=== PATIENT | male | born 1940 | race Caucasian/White ===

== ENCOUNTER 2016-09-17 00:26 | Emergency (ER) | payer OTHER, MEDICARE ==
[~2016-09-17 00:26] MED LIST: ASPIRIN CHILDRE81 MG PO; ATORVASTATIN CA80 MG PO; AUGMENTIN 875875 MG PO; BYSTOLIC 5MG5 MG PO; FINASTERIDE5 MG PO; FISH OIL CONC1000 MG PO; FUROSEMIDE20 MG PO; GLIMEPIRIDE4 MG PO; HYDRALAZINE HCL25 MG PO; JANUVIA 50MG50 MG PO; LANTUS SOLOS100 U/ML SC; LISINOPRIL40 MG PO; MINOXIDIL PO; RELAFEN 750MG750 MG PO; SPIRONOLACTONE25 MG PO; ULORIC40 MG PO
[2016-09-17 00:55] VITALS: BP 193/95
== END 2016-09-17 01:18 | disposition admitted as inpatient to this hospital (09) ==
LOC: ERH 00:26
DX: K56.41 Fecal impaction (principal)

== ENCOUNTER 2017-09-05 13:37 | Inpatient (IN) | payer OTHER, MEDICARE ==
[~2017-09-05] VITALS: Ht 167.6 cm; Wt 87.5 kg
[~2017-09-05 13:37] MED LIST changes: +ALDACTONE25 MG PO; +ALLOPURINOL100 M1 PO; +AMARYL4 M1 PO; -ASPIRIN CHILDRE81 MG PO; -ATORVASTATIN CA80 MG PO; +AUGMENTIN 875-1 EACH PO; -BYSTOLIC 5MG5 MG PO; +BYSTOLIC5 M1 PO; +CHILDREN'S ASPI81 M1 PO; +CINNAMON500 M1 PO; +FINASTERIDE5 M1 PO; -FINASTERIDE5 MG PO; +FUROSEMIDE20 M1 PO; -FUROSEMIDE20 MG PO; -GLIMEPIRIDE4 MG PO; +HYDRALAZINE HCL25 M1 PO; -HYDRALAZINE HCL25 MG PO; -JANUVIA 50MG50 MG PO; +JANUVIA50 M1 PO; +LANTUS SOL100 UNIT/1 SC; -LANTUS SOLOS100 U/ML SC; +LEVEMIR100 UNIT/1 SC; +LIPITOR40 M1 PO; +LISINOPRIL40 M1 PO; -LISINOPRIL40 MG PO; +METOPROLOL TART25 M1 PO; -MINOXIDIL PO; +MINOXIDIL2.5 M1 PO; +NABUMETONE750 M1 PO; +PROBIOTIC1 EACH PO; -RELAFEN 750MG750 MG PO; -SPIRONOLACTONE25 MG PO; +TRAMADOL HCL50 M1 PO; +ULORIC40 M1 PO; -ULORIC40 MG PO; +VITAMIN B-121000 MC3 PO; +VITAMIN D31000 UNI2 PO
[2017-09-05 14:22] LABS: ABSOLUTE BASOPHIL COUNT 0 /CUMM (0.0-0.2); ABSOLUTE EOSINOPHIL COUNT 0.1 /CUMM (0.0-0.7); ABSOLUTE GRANULOCYTE CT 5.3 /CUMM (1.4-6.5); ABSOLUTE LYMPH COUNT 1.2 /CUMM (1.2-3.4); ABSOLUTE MONOCYTE COUNT 0.7 /CUMM (0.10-0.60); BASOPHIL % 0.6 % (0.0-2.0); EOSINOPHIL % 1.1 % (0-5); HEMATOCRIT 33.4 % (42-52); MEAN CORPUSCULAR HGB 27.6 PG (27.0-31.0); MEAN CORPUSCULAR HGB CONC 33.7 G/DL (33.0-37.0); PLATELET COUNT 155 /CUMM (130-400); RBC DISTRIBUTION WIDTH 15.3 % (11.5-14.5); RED BLOOD CELL CT 4.08 /CUMM (4.70-6.10); WHITE BLOOD CELL COUNT 7.4 /CUMM (4.8-10.8)
--- NOTE | 2017-09-05 16:11 | ED GENERAL ADULT ---
History of Present Illness General Chief Complaint: General Adult Stated Complaint: SENT BY TORI FOR ELEVATED POTASSIUM LEVELS Source: patient Exam Limitations: no limitations Vital Signs & Intake/Output Vital Signs & Intake/Output Vital Signs Date Time Temp Pulse Resp B/P B/P Pulse O2 O2 Flow FiO2 Mean Ox Delivery Rate 09/05 1602 98.3 69 18 161/73 100 Room Air 09/05 1459 Room Air 09/05 1357 97.8 74 20 104/61 96 Room Air Allergies Coded Allergies: hydrocodone (NAUSEA 04/11/17) Reconcile Medications Allopurinol 100 MG TABLET 1 TAB PO DAILY GOUT (Reported) Amoxicillin/Potassium Clav (Augmentin 875-125 Tablet) 875 MG-125 MG TABLET 1 TAB PO BID PNEUMONIA Aspirin (Children's Aspirin) 81 MG TAB.CHEW 1 TAB PO DAILY HEART HEALTH ( Reported) Atorvastatin Calcium (Lipitor) 40 MG TABLET 1 TAB PO QPM CHOLESTEROL ( Reported) Cholecalciferol (Vitamin D3) 1,000 UNIT TABLET 1 TAB PO Q48 VITAMIN SUPPORT ( Reported) Cinnamon Bark (Cinnamon) 500 MG CAPSULE 1 CAP PO DAILY SUPPLEMENT (Reported) Cyanocobalamin (Vitamin B-12) 1,000 MCG TABLET 1 TAB PO DAILY VITAMIN SUPPORT (Reported) Febuxostat (Uloric) 40 MG TABLET 1 TAB PO DAILY BP (Reported) Finasteride 5 MG TABLET 1 TAB PO QPM PROSTATE (Reported) Furosemide 20 MG TABLET 3 TAB PO DAILY WATER RETENTION (Reported) Glimepiride (Amaryl) 4 MG TABLET 1 TAB PO BID DIABETES (Reported) Hydralazine HCl 25 MG TABLET 1 TAB PO TID BP (Reported) Insulin Glargine,Hum.rec.anlog (Lantus Solostar) 100 UNIT/ML (3 ML) INSULN.PEN 20 UNIT SC QPM DIOABETES Lactobacillus Acidophilus (Probiotic) 10 BILLION CELL CAPSULE 1 CAP PO DAILY GI (Reported) Lisinopril 40 MG TABLET 1 TAB PO DAILY HTN (Reported) Metoprolol Tartrate 25 MG TABLET 1 TAB PO DAILY HEART (Reported) Minoxidil 2.5 MG TABLET 1 TAB PO BID BP (Reported) Nabumetone 750 MG TABLET 2 TAB PO DAILY ARTHRITIS (Reported) Spironolactone (Aldactone) 25 MG TABLET 1 TAB PO DAILY BP (Reported) Tramadol HCl 50 MG TABLET 1 TAB PO BID PRN PAIN (Reported) Triage Note: PT SENT TO ED BY DR VALLE FOR HIGH POTASSIUM. PT STATES HE HAS BEEN HAVING HIS POTASSIUM LEVELS DRAWN OFTEN TO MONITOR THEM AND THEY ARE NOT GOING DOWN. HAD LABS THIS AM WHICH SHOWED A POTASSIUM OF 6.1, PT WAS CALLED AND TOLD TO COME TO ED. PT HAS NO COMPLAINTS, DENIES PAIN. TO EKG [facility] FOR EKG AND LABS. Triage Nurses Notes Reviewed? yes Onset: Abrupt Duration: day(s):, constant Timing: recent history Injury Environment: home No Modifying Factors: none HPI: 76-year-old male comes into the emergency room for further evaluation of elevated potassium. Patient was sent in by his cardiac cath tech Dr. Valle. He denies any chest pain shortness of breath. He's been dealing with some shortness of breath issues for the past few months reports that is significantly better. He's been following up with his doctor. Denies any fever chills vomiting. Denies any other associated symptoms. (Nitesh Kurtz) Past History Travel History Traveled to [place] past 21 day No Medical History Any Pertinent Medical History? see below for history Neurological: NONE EENT: NONE Cardiovascular: AFIB, CHF, hypertension Respiratory: NONE Gastrointestinal: NONE Hepatic: NONE Renal: "LOW FUNCTIONING KIDNEYS" Musculoskeletal: NONE Psychiatric: NONE Endocrine: diabetes Blood Disorders: NONE Cancer(s): NONE History of MRSA: No History of VRE: No History of CDIFF: No Surgical History Surgical History: BACK SURGERIES RIGHT TKR Psychosocial History Who do you live with Significant Other What is your primary language Grenadian Tobacco Use: Never used ETOH Use: denies use Illicit Drug Use: denies illicit drug use Family History Family History, If Any: MOTHER (CAD, multiple familes on mother sides had heart attack before 60). Hx Contributory? No (Nitesh Kurtz) Review of Systems Review of Systems Constitutional: Reports: no symptoms. EENTM: Reports: no symptoms. Respiratory: Reports: no symptoms. Cardiovascular: Reports: see HPI. GI: Reports: no symptoms. Genitourinary: Reports: no symptoms. Musculoskeletal: Reports: no symptoms. Skin: Reports: no symptoms. Neurological/Psychological: Reports: no symptoms. Hematologic/Endocrine: Reports: no symptoms. Immunologic/Allergic: Reports: no symptoms. All Other Systems: Reviewed and Negative (Nitesh Kurtz) Physical Exam Physical Exam General Appearance: well developed/nourished, alert, awake Head: atraumatic Eyes: Bilateral: normal appearance. Ears, Nose, Throat: normal ENT inspection, hearing grossly normal Neck: normal inspection Respiratory: no respiratory distress Cardiovascular: murmur, irregularly irregular Back: normal inspection Extremities: normal inspection Neurologic/Psych: awake, alert, oriented x 3 Skin: intact, normal color Core Measures ACS in differential dx? No CVA/TIA Diagnosis: No Sepsis Present: No Sepsis Focused Exam Completed? No (Nitesh Kurtz) Progress Differential Diagnoses I considered the following diagnoses in my evaluation of the patient: Hyperkalemia, renal failure, cardiac arrhythmia, dehydration, Plan of Care: Orders Procedure Date/time Status Consistent Carbohydrate 3 09/06 B Active ED Holding Orders 09/05 1724 Active Admit to inpatient 09/05 1724 Active Vital Signs 09/05 1724 Active Code Status 09/05 1724 Active Patient Data 09/05 1716 Active FingerStick- Glucose 09/05 1608 Active Intake & Output 09/05 1458 Active COMPREHENSIVE METABOLIC PANEL 09/05 1359 Complete CBC WITHOUT DIFFERENTIAL 09/05 1359 Complete EKG 09/05 1359 Active Current Medications Sig/Leonila Start time Last Medication Dose Stop Time Status Admin Sodium Chloride 1,000 ML ONCE ONE 09/05 1615 AC 09/05 (Normal Saline 0.9%) 09/05 2254 1651 Laboratory Tests 09/05/17 1410: Anion Gap 15, Estimated GFR 29 L, BUN/Creatinine Ratio 31.4 H, Glucose 215 H, Calcium 10.5 H, Total Bilirubin 0.5, AST 26, ALT 32, Alkaline Phosphatase 73, Total Protein 7.6, Albumin 4.8, Globulin 2.8, Albumin/Globulin Ratio 1.7, CBC w Diff NO MAN DIFF REQ, RBC 4.08 L, MCV 82.0, MCH 27.6, MCHC 33.7, RDW 15.3 H, MPV 8.0, Gran % 72.0, Lymphocytes % 16.9 L, Monocytes % 9.4 H, Eosinophils % 1.1, Basophils % 0.6, Absolute Granulocytes 5.3, Absolute Lymphocytes 1.2, Absolute Monocytes 0.7 H, Absolute Eosinophils 0.1, Absolute Basophils 0 Initial ED EKG: rate (69), AFIB (Nitesh Kurtz) Departure Departure Disposition: STILL A PATIENT Condition: Stable Clinical Impression Primary Impression: Hyperkalemia Referrals: Wade GONSALES,Sara (PCP/Family) Departure Forms: Customer Survey General Discharge Information Admission Note Spoke With: Janet Barajas MD Documentation of Exam: Documentation of any treatments & extenuating circumstances including Concerns Regarding Discharge (functional status, medication knowledge or non-compliance, living conditions, etc.) that warrant an admission rather than observation: Patient has failed outpatient treatment with management of hyperkalemia. Patient will require cardiac telemetry. IV medications to lower potassium. Cardiology consultation. Nephrology consultation. Not medically safe for discharge. (Nitesh Kurtz) PA/ESTIMATOR PRINTING Co-Sign Statement Statement: ED Attending supervision documentation- [X] I saw and evaluated the patient. I have also reviewed all the pertinent lab results and diagnostic results. I agree with the findings and the plan of care as documented in the PA's/ESTIMATOR PRINTING's documentation. [] I have reviewed the ED Record and agree with the PA's/ESTIMATOR PRINTING's documentation. [] Additions or exceptions (if any) to the PAs/ESTIMATOR PRINTING's note and plan are summarized below: [] (Natanael Pendleton DO) Critical Care Note Critical Care Note Critical Care Time: 30-74 min (35) (Nitesh Kurtz)
--- NOTE | 2017-09-05 17:06 | Admission Certification ---
Admission Certification Certification Statement - As attending physician, I certify that at the time of - admission, based on clinical presentation, severity of - symptoms, need for further diagnostic testing and - therapeutic interventions, and risk of adverse outcomes - without in-hospital treatment, in my clinical assessment, - this patient requires an acute hospital stay for a minimum - of two nights or longer. I have also considered psychsocial - factors such as support system, advanced age, financial - issues, cognitive issues, and failed out-patient treatments, - past re-admission history, safety of patient, and lack of - compliance as applicable. Specific rationale supporting this admission is: Hyperkalemia in patient with diabetes and CKD failed outpatient treatment.
[2017-09-05] MEDS ORDERED: ATORVASTATIN CA40 M1 PO (18:28)
[2017-09-05] MEDS ORDERED: GABAPENTIN100 M2 PO (18:29)
[2017-09-05] MEDS ORDERED: LANTUS100 UNIT/1 SC ×2 (18:31)
[2017-09-05] MEDS ORDERED: HUMALOG100 UNIT/2 SC (18:32)
--- NOTE | 2017-09-05 19:08 | History & Physical ---
Mandeep Oviedo 09/05/171906: General Information and HPI MD Statement: I have seen and personally examined RANJAN TAPIA and documented this H&P. The patient is a 76 year old M who presented with a patient stated chief complaint of []. Source of Information: patient, old records Exam Limitations: no limitations History of Present Illness: 77-year-old gentleman with past medical history of CHF, chronic kidney disease, CAD, hypertension, gout, questionable paroxysmal A. fib not on anticoagulation diabetes on insulin was sent by his butcher apprentice per hospital for workup of elevated potassium. Patient reported that he has been having shortness of breath for couple of weeks and And h increased leg swelling .e's [facility] Leary meet weekly BP and IV Lasix at the [facility], he reported that his potassium level was elevated in couple of blood works recently, his last blood that was today which was done at Dr. Leary's office which showed that his potassium is 6.1 and he was advised to come to the hospital. He should be noted that patient's leg swelling and shortness of breath have improved with IV Lasix. According to the patient Dr. Leary stopped lisinopril on Sunday. However patient is still on his spironolactone. His sugars are around 160 to 250 during the day At the moment patient denies any chest pain, nausea, vomiting, abdominal pain, headache, shortness of breath on exertion, increased leg swelling, fevers, chills. Vital signs were stable. Labs hemoglobin 11.3, potassium 5.9 which has been elevated since early August, chloride 108, And accepted 21, creatinine 2.0 at baseline, hemoglobin A1c 9.5, calcium 10.5 which is chronically elevated, total protein and albumin are normal but PTH was elevated last time. EKG showed A. fib, 88, no acute ST-T changes comparing to previous EKG, No tall T waves Allergies/Medications Allergies: Coded Allergies: hydrocodone (NAUSEA 04/11/17) Home Med list Allopurinol 100 MG TABLET 1 TAB PO DAILY GOUT (Reported) Aspirin (Children's Aspirin) 81 MG TAB.CHEW 1 TAB PO DAILY HEART HEALTH ( Reported) Atorvastatin Calcium 40 MG TABLET 0.5 TAB PO DAILY CHOLESTEROL (Reported) Cinnamon Bark (Cinnamon) 500 MG CAPSULE 1 CAP PO DAILY SUPPLEMENT (Reported) Cyanocobalamin (Vitamin B-12) 1,000 MCG TABLET 1 TAB PO DAILY VITAMIN SUPPORT (Reported) Finasteride 5 MG TABLET 1 TAB PO QPM PROSTATE (Reported) Furosemide 20 MG TABLET 3 TAB PO DAILY WATER RETENTION (Reported) Gabapentin 100 MG CAPSULE 1 CAP PO TID NERVE PAIN (Reported) Hydralazine HCl 25 MG TABLET 1 TAB PO TID BP (Reported) Insulin Lispro (Humalog) 100 UNIT/ML VIAL DM (Reported) Insulin-Lantus (Lantus) 100 UNIT/ML VIAL 28 UNITS SC QAM DM (Reported) Insulin-Lantus (Lantus) 100 UNIT/ML VIAL 33 UNITS SC QPM DM (Reported) Lactobacillus Acidophilus (Probiotic) 10 BILLION CELL CAPSULE 1 CAP PO DAILY GI (Reported) Lisinopril 40 MG TABLET 1 TAB PO BID BP (Reported) Metoprolol Tartrate 25 MG TABLET 0.5 TAB PO DAILY HEART/BP (Reported) Minoxidil 2.5 MG TABLET 2 TAB PO BID BP (Reported) Spironolactone (Aldactone) 25 MG TABLET 1 TAB PO DAILY BP (Reported) Past History Travel History Traveled to [place] past 21 day No Medical History Neurological: NONE EENT: NONE Cardiovascular: AFIB, CHF, hypertension Respiratory: NONE Gastrointestinal: NONE Hepatic: NONE Renal: "LOW FUNCTIONING KIDNEYS" Musculoskeletal: NONE Psychiatric: NONE Endocrine: diabetes Blood Disorders: NONE Cancer(s): NONE History of MRSA: No History of VRE: No History of CDIFF: No Surgical History Surgical History: BACK SURGERIES RIGHT TKR Past Family/Social History Family History Relations & Conditions if any MOTHER (CAD, multiple familes on mother sides had heart attack before 60). Psychosocial History ETOH Use: denies use Illicit Drug Use: denies illicit drug use Review of Systems Review of Systems Constitutional: Reports: see HPI. Exam & Diagnostic Data Last 24 Hrs of Vital Signs/I&O Vital Signs Date Time Temp Pulse Resp B/P B/P Pulse O2 O2 Flow FiO2 Mean Ox Delivery Rate 09/05 1602 98.3 69 18 161/73 100 Room Air 09/05 1459 Room Air 09/05 1357 97.8 74 20 104/61 96 Room Air Intake & Output 09/05 1600 09/05 0800 09/05 0000 Intake Total Output Total Balance Patient 87.997 kg Weight Weight Reported by Patient Measurement Method Physical Exam General Appearance Alert, Oriented X3, Cooperative Cardiovascular Regular Rate, 3/6 systolic murmur Lungs Clear to Auscultation, Normal Air Movement Abdomen Normal Bowel Sounds, Soft Neurological Normal Gait, Normal Speech Extremities bilateral +1 edema in both legs Assessment/Plan Assessment: 77-year-old gentleman with past medical history of CHF, chronic kidney disease, CAD, hypertension, gout, questionable paroxysmal A. fib not on anticoagulation diabetes on insulin was sent by his butcher apprentice per hospital for workup of elevated potassium. He should be noted that patient was on lisinopril which was stopped and he is is still taking his spironolactone. Last hemoglobin A1c 9.5 At the moment patient denies any chest pain, nausea, vomiting, abdominal pain, headache, shortness of breath on exertion, increased leg swelling, fevers, chills. Vital signs were stable. Labs hemoglobin 11.3, potassium 5.9 which has been elevated since early August, chloride 108, And accepted 21, creatinine 2.0 at baseline, hemoglobin A1c 9.5, calcium 10.5 which is chronically elevated, total protein and albumin are normal but PTH was elevated last time. EKG showed A. fib, 88, no acute ST-T changes comparing to previous EKG, No tall T waves Assessment Hyperkalemia Diabetes Atrial fibrillation CKD CHF CAD Hypertension Hyperlipidemia Plan Hyperkalemia Most likely due to combination of spironolactone, CKD, uncontrolled diabetes?. Patient already received calcium gluconate with insulin R push and normal saline 500 cc. we will check K at 22 pm.Low potassium and low sodium diet Diabetes Continue Levemir 33 unit at bedtime and 28 U in the morning with medium sliding scale insulin, Accu-Cheks, diabetic diet , continue gabapentin for diabetic neuropathy Atrial fibrillation A call was made to Dr. Leary regarding anticoagulation. He reported that patient should be on anticoagulation however still cut was positive and we will get GI consultation for preoperative the patient on IV CKD and gout Continue allopurinol for gout, Check BEP in the morning CHF Continue Lasix 60 mg daily, I and Os and daily weights CAD, hypertension Hold sprinolactone and lisinopril, continue hydralazine, continue statin DVT prophylaxis is subcutaneous heparin and mechanical, diabetic diet with low potassium, Tylenol for pain, full code As Ranked By This Provider Problem List: 1. CHF (congestive heart failure) 2. DM (diabetes mellitus) 3. HTN (hypertension) 4. Hyperkalemia 5. Chronic renal failure Core Measures/Misc (04/22) Acute Coronary Syndrome ACS Diagnosis: No Congestive Heart Failure Congestive Heart Failure Diagnosis No Cerebrovascular Accident CVA/TIA Diagnosis: No VTE (View Protocol) VTE Risk Factors Age>40 No Mechanical VTE Prophylaxis d/t N/A MechProphylax Ordered No VTE Pharm Prophylaxis d/t NA PharmProphylax ordered Sepsis (View protocol) Sepsis Present: No Janet Barajas MD 09/05/172: Attending MD Review Statement Attending Statement Attending MD Statement: examined this patient, discuss w/resident/PA/[employer], agreed w/resident/PA/[employer], discussed with nursing, reviewed images Attending Assessment/Plan: 76-year-old male, has multiple medical problems including diabetes, gout, chronic diastolic heart failure, aortic stenosis and CKD with a baseline GFR of about 30. He says that in the past few days he's had multiple blood tests as his potassium has been high and today when it was found to be 6.1 Dr. eLary asked him to come to the emergency room. He was also treated recently for acute diastolic heart failure with IV Lasix at the [facility] which prompted the blood draws to begin with. He has no ekg evidence of arrythmogenic effects of hyperkalemia at this point and has already gotten Calcium gluconate and insulin with dextrose in the ED. He is very confused about his meds and it appears that he is taking Aldactone and an NSAID which is likely contributing to the hyperkalemia in addition to the Julio which was stopped on 09/03. He is also not on anticoagulation for AFib which appears to be due to his confusion about his meds. At this point will watch him on Tele, repeat his K tonight, start IV heparin per DR Leary as he has a high CHADS score and needs ac. Continue his insulin for his DM. Clarify all meds with him and his girlfriend in am and f/u.
[2017-09-05 22:22] VITALS: BP 142/76
[2017-09-06 06:40] VITALS: BP 134/64
--- NOTE | 2017-09-06 06:43 | PN- Housestaff ---
Subjective Follow-up For: Hyperkalemia Complaints: no complaints Tele-Events Since Last Visit: Sinus rhythm heart rate 70 Subjective: Patient was seen and examined at bedside today. Patient was sitting in his recliner comfortably. No overnight events. He offers no complaints. He denies chest pain, chest pressure, nausea, dizziness, weakness, altered sensation, palpitation. Review of Systems Constitutional: Reports: no symptoms. Cardiovascular: Reports: no symptoms. Respiratory: Reports: no symptoms. Gastrointestinal: Reports: no symptoms. Genitourinary: Reports: no symptoms. Musculoskeletal: Reports: no symptoms. Objective Last 24 Hrs of Vital Signs/I&O Vital Signs Date Time Temp Pulse Resp B/P B/P Pulse O2 O2 Flow FiO2 Mean Ox Delivery Rate 09/06 0832 138/70 09/06 0830 136/70 09/06 0640 98.2 71 12 134/64 99 Room Air 09/06 0010 74 142/76 09/05 2239 Room Air 09/05 2222 98.3 74 20 142/76 97 Room Air 09/05 2115 98.2 77 18 154/70 97 Room Air 09/05 1602 98.3 69 18 161/73 100 Room Air 09/05 1459 Room Air 09/05 1357 97.8 74 20 104/61 96 Room Air Intake & Output 09/06 1600 09/06 0800 09/06 0000 Intake Total 400 100 Output Total Balance 400 100 Intake, Oral 400 100 Patient 193 lb Weight Weight Reported by Patient Measurement Method Physical Exam General Appearance: Alert, Oriented X3, Cooperative, No Acute Distress Skin: No Breakdown Neck: Supple, No JVD, No thryomegaly Cardiovascular: Regular Rate, Normal S1, Normal S2, No Murmurs Lungs: Clear to Auscultation Abdomen: Normal Bowel Sounds, Soft, No Tenderness, No Hepatospenomegaly Neurological: Normal Speech, Strength at 5/5 X4 Ext, Normal Tone, Sensation Intact Extremities: No Edema Current Medications: Current Medications Sig/Leonila Start time Last Medication Dose Route Stop Time Status Admin Acetaminophen 650 MG Q6P PRN 09/05 1915 AC PO Allopurinol 100 MG DAILY 09/06 1000 AC 09/06 PO 0830 Aspirin 81 MG DAILY 09/06 1000 AC 09/06 PO 0830 Atorvastatin Calcium 20 MG 1700 09/06 1700 AC PO Calcium Gluconate 1 GM ONCE ONE 09/05 1530 DC 01/31 Sodium Chloride 100 ML IV 09/05 1629 1603 Cyanocobalamin 1,000 MCG DAILY 09/06 1000 AC 09/06 PO 0830 Docusate Sodium 100 MG DAILY NEEDED PRN 09/06 1130 AC PO Finasteride 5 MG QPM 09/05 2200 AC 09/06 PO 0100 Furosemide 60 MG DAILY 09/06 1000 AC 09/06 PO 0830 Gabapentin 100 MG TID 09/05 2200 AC 09/06 PO 0830 Heparin Sodium 5,000 UNIT Q8 09/05 2200 AC 09/06 (Porcine) SC 0630 Hydralazine HCl 25 MG TID 09/05 220 AC 09/06 PO 0830 Insulin Aspart 0 TIDAC 09/06 0800 AC 09/06 SC 1155 Insulin Detemir 28 UNITS QAM 09/06 1000 AC 09/06 SC 0829 Insulin Detemir 11 UNITS ONCE ONE 09/05 2345 DC 09/05 SC 09/05 2346 2342 Insulin Detemir 33 UNITS QPM 09/05 2200 [facility] Insulin Human Regular 10 UNITS ONCE ONE 09/05 1530 DC 09/05 IV 09/05 1531 1603 Magnesium Hydroxide 30 ML ONE PRN 09/06 1130 AC PO Metoprolol Tartrate 12.5 MG DAILY 09/06 1000 AC 09/06 PO 0832 Sodium Chloride 1,000 ML ONCE ONE 09/05 1615 DC 09/05 IV 09/05 2254 1651 Sodium Polystyrene 60 ML .STK-MED ONE 09/06 0006 DC Sulfonate PO 09/06 0007 Sodium Polystyrene 15 ML ONCE ONE 09/05 2345 DC 09/06 Sulfonate PO 09/05 2346 0013 Sodium Polystyrene 0 .STK-MED ONE 09/05 1554 DC Sulfonate .ROUTE Sodium Polystyrene 60 ML ONCE ONE 09/05 1530 DC 09/05 Sulfonate PO 09/05 1531 1603 Last 24 Hrs of Lab/Desean Results Last 24 Hrs of Labs/Mics: Laboratory Tests 09/06/17 0618: Anion Gap 14, Estimated GFR 39 L, BUN/Creatinine Ratio 34.1 H, CBC w Diff NO MAN DIFF REQ, RBC 3.76 L, MCV 81.6, MCH 27.7, MCHC 34.0, RDW 15.2 H, MPV 8.5, Gran % 68.4, Lymphocytes % 20.5, Monocytes % 9.4 H, Eosinophils % 1.2, Basophils % 0.5, Absolute Granulocytes 4.3, Absolute Lymphocytes 1.3, Absolute Monocytes 0.6, Absolute Eosinophils 0.1, Absolute Basophils 0 09/05/17 2150: Anion Gap 15, Estimated GFR 32 L, BUN/Creatinine Ratio 31.5 H 09/05/17 1410: Anion Gap 15, Estimated GFR 29 L, BUN/Creatinine Ratio 31.4 H, Glucose 215 H, Calcium 10.5 H, Total Bilirubin 0.5, AST 26, ALT 32, Alkaline Phosphatase 73, Total Protein 7.6, Albumin 4.8, Globulin 2.8, Albumin/Globulin Ratio 1.7, CBC w Diff NO MAN DIFF REQ, RBC 4.08 L, MCV 82.0, MCH 27.6, MCHC 33.7, RDW 15.3 H, MPV 8.0, Gran % 72.0, Lymphocytes % 16.9 L, Monocytes % 9.4 H, Eosinophils % 1.1, Basophils % 0.6, Absolute Granulocytes 5.3, Absolute Lymphocytes 1.2, Absolute Monocytes 0.7 H, Absolute Eosinophils 0.1, Absolute Basophils 0 Assessment/Plan Assessment: 77-year-old gentleman with past medical history of CHF, chronic kidney disease, CAD, hypertension, gout, questionable paroxysmal A. fib not on anticoagulation diabetes on insulin was sent by his retort setter per hospital for workup of elevated potassium. He should be noted that patient was on lisinopril which was stopped and he is is still taking his spironolactone. Last hemoglobin A1c 9.5 Assessment Hyperkalemia Diabetes Atrial fibrillation CKD CHF CAD Hypertension Hyperlipidemia Plan Hyperkalemia His hyperkalemia was most likely secondary due to spironolactone/lisinopril. In ED patient patient received calcium gluconate with insulin, Kayexalate and normal saline. His repeat potassium was 4.9 earlier today. Plan to continue metoprolol for now. Cardiology follow-up appreciated. Diabetes Continue Levemir 33 unit at bedtime and 28 U in the morning with medium sliding scale insulin, Accu-Cheks, diabetic diet , continue gabapentin for diabetic neuropathy Atrial fibrillation Patient has history of proximal A. fib and following Dr. Leary. Patient is not on any anticoagulation for the past 6 months. [Reason unknown]. The same was discussed with Dr. Zaraogza yesterday over the phone. However, his stool guaiac was positive yesterday. Though no history of hematochezia, bleeding per rectum his H&H dropped from 11.3-10.4 today. We will get a GI consult and decide upon if he needs anticoagulation for atrial fibrillation. Telemetry events-normal sinus rhythm with a heart rate of 80. CKD and gout Continue allopurinol for gout, CHF Continue Lasix 60 mg daily, I and Os and daily weights CAD, hypertension Hold sprinolactone and lisinopril, continue hydralazine, metoprolol continue statin. DVT prophylaxis is subcutaneous heparin and mechanical, diabetic diet with low potassium, Tylenol for pain, full code Plan-GI consult, cardiology follow-up. Problem List: 1. Hyperkalemia Pain Ratin Pain Location: none Pain Goal: Remain pain free Pain Plan: tylenol Tomorrow's Labs & Rationales: bep,cbc
[2017-09-06 08:32] VITALS: BP 138/70
[2017-09-06 08:55] LABS: ABSOLUTE BASOPHIL COUNT 0 /CUMM (0.0-0.2); ABSOLUTE EOSINOPHIL COUNT 0.1 /CUMM (0.0-0.7); ABSOLUTE GRANULOCYTE CT 4.3 /CUMM (1.4-6.5); ABSOLUTE LYMPH COUNT 1.3 /CUMM (1.2-3.4); ABSOLUTE MONOCYTE COUNT 0.6 /CUMM (0.10-0.60); BASOPHIL % 0.5 % (0.0-2.0); EOSINOPHIL % 1.2 % (0-5); GRANULOCYTE % 68.4 % (42.2-75.2); HEMATOCRIT 30.7 % (42-52); MEAN CORPUSCULAR HGB 27.7 PG (27.0-31.0); MEAN CORPUSCULAR VOLUME 81.6 FL (80.0-94.0); MEAN PLATELET VOLUME 8.5 FL (7.4-10.4); PLATELET COUNT 143 /CUMM (130-400); RBC DISTRIBUTION WIDTH 15.2 % (11.5-14.5); RED BLOOD CELL CT 3.76 /CUMM (4.70-6.10); WHITE BLOOD CELL COUNT 6.3 /CUMM (4.8-10.8)
--- NOTE | 2017-09-06 09:41 | Patient Discharge Instructions ---
Discharge Instructions General Discharge Information You were seen/treated for: Hyperkalemia Watch for these problems: In case of chest pain, chest pressure, dizziness, weakness, diarrhea please go to the nearest ER Special Instructions: Please follow-up with your primary care provider within 1-2 weeks of discharge. Please follow-up with the clothes marker within 1-2 weeks of discharge. We are holding your Spirino lactone. Please discuss with the primary care physician and clothes marker within 1-2 weeks regarding restarting the meds. Please follow-up with communications systems engineer Dr. Raman for outpatient colonoscopy. Please do a CBC and BMP in a week. Diet Continue normal diet: No Recommended Diet: Heart Healthy Activity Full Activity/No Limits: No Activity Self Limited: Yes Acute Coronary Syndrome Inclusion Criteria At DC or during hospital stay patient has or had the following: ACS DIAGNOSIS No Discharge Core Measures Meds if any: Prescribed or Continued at Discharge Meds if any: NOT Prescribed or Continued at Discharge Congestive Heart Failure Inclusion Criteria At DC or during hospital stay patient has or had the following: CHF DIAGNOSIS No Discharge Core Measures Meds if any: Prescribed or Continued at Discharge Meds if any: NOT Prescribed or Continued at Discharge Cerebrovascular accident Inclusion Criteria At DC or during hospital stay patient has or had the following: CVA/TIA Diagnosis No Discharge Core Measures Meds if any: Prescribed or Continued at Discharge Meds if any: NOT Prescribed or Continued at Discharge Venous thromboembolism Inclusion Criteria VTE Diagnosis No VTE Type NONE VTE Confirmed by (Test) NONE Discharge Core Measures - Per Current guidelines, there needs to be overlap - treatment for the first 5 days of Warfarin therapy. - If discharged on Warfarin prior to 5 days of - overlap therapy, the patient will need to be - assessed for post discharge needs including - *Post discharge parental anticoagulation - *Warfarin and/or parental anticoagulation education - *Follow up date to check INR post discharge At least 5 days overlap therapy as Inpatient No Meds if any: Prescribed or Continued at Discharge Note: Overlap Therapy is Warfarin and Anticoagulant Meds if any: NOT Prescribed or Continued at Discharge
--- NOTE | 2017-09-06 11:58 | PN- Att Addend ---
Attending Addendum Attending Brief Note Patient seen and examined. He is an extremely pleasant gentleman was sent in for evaluation by his precipitator on account of hyperkalemia noted on labs with medical therapy overnight his potassium level is back to normal limits. Patient has no complaints this morning. He remains in normal sinus rhythm on secured entrance monitor. He was noted to have guaiac-positive stools overnight. Reports constipation with straining. Constipation is relieved with use of milk of magnesia. His last colonoscopy was in 2014 done as follow-up to tubulous adenoma screening from 2011. it revealed polyp at the hepatic flexure that was negative for evidence of invasive cancer. Patient denies history of black or bloody stools. He denies abdominal pain or cramping. On examination he is not in any acute distress. Lungs are clear bilaterally. Heart sounds are regular. Abdomen is soft and nontender. He has no peripheral edema. Problems: 1. Hyperkalemia; likely medication induced. Resolved 2. Guaiac positive stool; history of gastric polyps and constipation with straining. 3. Paroxysmal atrial fibrillation; currently in sinus rhythm.Patient's last hospitalization was April 2017. He was in normal sinus rhythm at that time and was not on anticoagulation at that time. He remains in normal sinus rhythm. Recommendations: -Discontinue lisinopril and Aldactone which are likely contributing to his hyperkalemia. Repeat serum chemistry in 1 week as an outpatient. -Follow-up with patient's outpatient precipitator regarding anticoagulation therapy. Records show that patient was taken off anticoagulant therapy in the past. -Guaiac-positive stool likely related to straining from constipation and history of gastric polyps. He did have mild drop in his hemoglobin overnight however he did not present to the hospital with any concerns for bleeding. -Begin patient on a bowel regimen for his constipation. recommend Colace daily and milk of magnesia as needed. Addendum: Case discussed with cardiology service. Recommendations are to continue patient on his antihypertensive regimen of metoprolol, hydralazine and Lasix. Patient will be followed up as an outpatient. GI consultation was appreciated. Patient will have his CBC rechecked as an outpatient and follow-up with the gastroenterology service for further endoscopic workup if needed
--- NOTE | 2017-09-06 12:36 | Cons- Gastroenterology ---
General Information and HPI Consulting Request Date of Consult: 09/06/17 Requested By: Bj Mullen MD Reason for Consult: Guaiac positive stool; falling hgb Source of Information: patient, old records Exam Limitations: no limitations History of Present Illness: Mr. Jameson is a 76 year old male with multiple medical problems including but not limited to CHF, CRI, CAD, HTN and w paroxysmal afib that he is not on anticoagulation forho was sent in by his PCP for treatment and evaluation of an elevated potassium. On admission he was found to have occult blood in his stool and his hgb fell from 11.3 to 10.4 prompting GI consultation. He does complain of constipation, but he is otherwise without any other GI complaints. He takes stool softners at home for constiption and if this doesn't help he will take MOM with good benefit. He is also without any significant abdominal pain with eating, heartburn, dysphagia, hematemeis or vomiting. He has been hemodynamically stable since admission and has not had any overt GI bleeding since admission. Allergies/Medications Allergies: Coded Allergies: hydrocodone (NAUSEA 04/11/17) Home Med List: Allopurinol 100 MG TABLET 1 TAB PO DAILY GOUT (Reported) Aspirin (Children's Aspirin) 81 MG TAB.CHEW 1 TAB PO DAILY HEART HEALTH ( Reported) Atorvastatin Calcium 40 MG TABLET 0.5 TAB PO DAILY CHOLESTEROL (Reported) Cinnamon Bark (Cinnamon) 500 MG CAPSULE 1 CAP PO DAILY SUPPLEMENT (Reported) Cyanocobalamin (Vitamin B-12) 1,000 MCG TABLET 1 TAB PO DAILY VITAMIN SUPPORT (Reported) Docusate Sodium (Colace) 100 MG CAPSULE 1 CAP PO BID PRN CONSTIPATION Finasteride 5 MG TABLET 1 TAB PO QPM PROSTATE (Reported) Furosemide 20 MG TABLET 3 TAB PO DAILY WATER RETENTION (Reported) Gabapentin 100 MG CAPSULE 1 CAP PO TID NERVE PAIN (Reported) Hydralazine HCl 25 MG TABLET 1 TAB PO TID BP (Reported) Insulin Lispro (Humalog) 100 UNIT/ML VIAL DM (Reported) Insulin-Lantus (Lantus) 100 UNIT/ML VIAL 28 UNITS SC QAM DM (Reported) Insulin-Lantus (Lantus) 100 UNIT/ML VIAL 33 UNITS SC QPM DM (Reported) Lactobacillus Acidophilus (Probiotic) 10 BILLION CELL CAPSULE 1 CAP PO DAILY GI (Reported) Lisinopril 40 MG TABLET 1 TAB PO BID BP (Reported) Magnesium Hydroxide (Milk Of Magnesia) 400 MG/5 ML ORAL.SUSP 5 ML PO DAILY NEEDED PRN CONSTIPATION Metoprolol Tartrate 25 MG TABLET 0.5 TAB PO DAILY HEART/BP (Reported) Minoxidil 2.5 MG TABLET 2 TAB PO BID BP (Reported) Spironolactone (Aldactone) 25 MG TABLET 1 TAB PO DAILY BP (Reported) Current Medications: Current Medications Sig/Leonila Start time Last Medication Dose Route Stop Time Status Admin Acetaminophen 650 MG Q6P PRN 09/05 1915 AC PO Allopurinol 100 MG DAILY 09/06 1000 AC 09/06 PO 0830 Aspirin 81 MG DAILY 09/06 1000 AC 09/06 PO 0830 Atorvastatin Calcium 20 MG 1700 09/06 1700 AC PO Calcium Gluconate 1 GM ONCE ONE 09/05 1530 DC 09/05 Sodium Chloride 100 ML IV 09/05 1629 1603 Cyanocobalamin 1,000 MCG DAILY 09/06 1000 AC 09/06 PO 0830 Docusate Sodium 100 MG DAILY NEEDED PRN 09/06 1130 AC PO Finasteride 5 MG QPM 09/05 2200 AC 09/06 PO 0100 Furosemide 60 MG DAILY 09/06 1000 AC 09/06 PO 0830 Gabapentin 100 MG TID 09/05 2200 AC 09/06 PO 0830 Heparin Sodium 5,000 UNIT Q8 09/05 2200 AC 09/06 (Porcine) SC 0630 Hydralazine HCl 25 MG TID 09/05 2200 AC 09/06 PO 0830 Insulin Aspart 0 TIDAC 09/06 0800 AC 09/06 SC 1155 Insulin Detemir 28 UNITS QAM 09/06 1000 AC 09/06 SC 0829 Insulin Detemir 11 UNITS ONCE ONE 09/05 2345 DC 09/05 SC 09/05 2346 2342 Insulin Detemir 33 UNITS QPM 09/05 2200 AC SC Insulin Human Regular 10 UNITS ONCE ONE 09/05 1530 DC 09/05 IV 09/05 1531 1603 Magnesium Hydroxide 30 ML ONE PRN 09/06 1130 AC PO Metoprolol Tartrate 12.5 MG DAILY 09/06 1000 AC 09/06 PO 0832 Sodium Chloride 1,000 ML ONCE ONE 09/05 1615 DC 09/05 IV 09/05 2254 1651 Sodium Polystyrene 60 ML .STK-MED ONE 09/06 0006 DC Sulfonate PO 09/06 0007 Sodium Polystyrene 15 ML ONCE ONE 09/05 2345 DC 09/06 Sulfonate PO 09/05 2346 0013 Sodium Polystyrene 0 .STK-MED ONE 09/05 1554 DC Sulfonate .ROUTE Sodium Polystyrene 60 ML ONCE ONE 09/05 1530 DC 09/05 Sulfonate PO 09/05 1531 1603 Past History Travel History Traveled to [place] past 21 day No Medical History Blood Transfusion Hx: Yes Neurological: NONE EENT: NONE Cardiovascular: AFIB, CHF, hypertension Respiratory: NONE Gastrointestinal: NONE Hepatic: NONE Renal: "LOW FUNCTIONING KIDNEYS" Musculoskeletal: NONE Psychiatric: NONE Endocrine: diabetes Blood Disorders: NONE Cancer(s): NONE INTEGRITY DIRECTOR/Reproductive: NONE Surgical History Surgical History: BACK SURGERIES RIGHT TKR Family History Relations & Conditions If Any: MOTHER (CAD, multiple familes on mother sides had heart attack before 60). Psychosocial History Where Do You Live? Home Smoking Status: Never Smoked ETOH Use: denies use Illicit Drug Use: denies illicit drug use Review of Systems Review of Systems Constitutional: Reports: malaise. Denies: chills, diaphoresis, fever. EENTM: Denies: no symptoms. Cardiovascular: Denies: no symptoms. Respiratory: Denies: no symptoms. GI: Reports: see HPI. Genitourinary: Denies: no symptoms. Musculoskeletal: Reports: muscle pain. Denies: gout, joint pain, joint swelling. Skin: Denies: no symptoms. Neurological/Psychological: Denies: no symptoms. Hematologic/Endocrine: Denies: no symptoms. Immunologic/Allergic: Denies: no symptoms. All Other Systems: Reviewed and Negative Exam & Diagnostic Data Vital Signs and I&O Vital Signs Date Time Temp Pulse Resp B/P B/P Pulse O2 O2 Flow FiO2 Mean Ox Delivery Rate 09/06 0832 138/70 09/06 0830 136/70 09/06 0640 98.2 71 12 134/64 99 Room Air 09/06 0010 74 142/76 09/059 Room Air 09/05 2221 98.3 74 20 142/76 97 Room Air 09/055 98.2 77 18 154/70 97 Room Air 09/05 1602 98.3 69 18 161/73 100 Room Air 09/05 1459 Room Air 09/05 1357 97.8 74 20 104/61 96 Room Air Intake & Output 09/06 0400 Intake Total 400 100 Output Total Balance 400 100 Intake, Oral 400 100 Patient 193 lb 194 lb Weight Weight Reported by Patient Reported by Patient Measurement Method Physical Exam General Appearance: well developed/nourished, no apparent distress, alert, comfortable Head: atraumatic, normal appearance Eyes: Bilateral: normal appearance. Ears, Nose, Throat: normal pharynx, normal ENT inspection Neck: normal inspection, supple, full range of motion Respiratory: normal breath sounds, chest non-tender, no respiratory distress Cardiovascular: irregularly irregular Gastrointestinal: normal bowel sounds, soft, non-tender, no organomegaly Rectal: deferred, occult blood in stool per house staff Back: normal inspection, normal range of motion Extremities: normal inspection, normal range of motion, no edema Neurologic/Psych: no motor/sensory deficits, awake, alert, oriented x 3 Skin: intact, normal color, warm/dry Results Pertinent Lab Results: Laboratory Tests 09/06 09/05 0618 2150 Chemistry Sodium (137 - 145 mmol/L) 145 144 Potassium (3.5 - 5.1 mmol/L) 4.9 5.7 H Chloride (98 - 107 mmol/L) 112 H 110 H Carbon Dioxide (22 - 30 mmol/L) 19 L 19 L Anion Gap (5 - 16) 14 15 BUN (9 - 20 mg/dL) 58 H 63 H Creatinine (0.7 - 1.2 mg/dL) 1.7 H 2.0 H Estimated GFR (>60 ml/min) 39 L 32 L BUN/Creatinine Ratio (7 - 25 %) 34.1 H 31.5 H Hematology CBC w Diff NO MAN DIFF REQ WBC (4.8 - 10.8 /CUMM) 6.3 RBC (4.70 - 6.10 /CUMM) 3.76 L Hgb (14.0 - 18.0 G/DL) 10.4 L Hct (42 - 52 %) 30.7 L MCV (80.0 - 94.0 FL) 81.6 MCH (27.0 - 31.0 PG) 27.7 MCHC (33.0 - 37.0 G/DL) 34.0 RDW (11.5 - 14.5 %) 15.2 H Plt Count (130 - 400 /CUMM) 143 MPV (7.4 - 10.4 FL) 8.5 Gran % (42.2 - 75.2 %) 68.4 Lymphocytes % (20.5 - 51.1 %) 20.5 Monocytes % (1.7 - 9.3 %) 9.4 H Eosinophils % (0 - 5 %) 1.2 Basophils % (0.0 - 2.0 %) 0.5 Absolute Granulocytes (1.4 - 6.5 /CUMM) 4.3 Absolute Lymphocytes (1.2 - 3.4 /CUMM) 1.3 Absolute Monocytes (0.10 - 0.60 /CUMM) 0.6 Absolute Eosinophils (0.0 - 0.7 /CUMM) 0.1 Absolute Basophils (0.0 - 0.2 /CUMM) 0 09/05 1410 Chemistry Sodium (137 - 145 mmol/L) 144 Potassium (3.5 - 5.1 mmol/L) 5.9 H Chloride (98 - 107 mmol/L) 108 H Carbon Dioxide (22 - 30 mmol/L) 21 L Anion Gap (5 - 16) 15 BUN (9 - 20 mg/dL) 69 H Creatinine (0.7 - 1.2 mg/dL) 2.2 H Estimated GFR (>60 ml/min) 29 L BUN/Creatinine Ratio (7 - 25 %) 31.4 H Glucose (65 - 99 mg/dL) 215 H Calcium (8.4 - 10.2 mg/dL) 10.5 H Total Bilirubin (0.2 - 1.3 mg/dL) 0.5 AST (17 - 59 U/L) 26 ALT (21 - 72 U/L) 32 Alkaline Phosphatase (< 127 U/L) 73 Total Protein (6.3 - 8.2 g/dL) 7.6 Albumin (3.5 - 5.0 g/dL) 4.8 Globulin (1.9 - 4.2 gm/dL) 2.8 Albumin/Globulin Ratio (1.1 - 2.2 %) 1.7 Hematology CBC w Diff NO MAN DIFF REQ WBC (4.8 - 10.8 /CUMM) 7.4 RBC (4.70 - 6.10 /CUMM) 4.08 L Hgb (14.0 - 18.0 G/DL) 11.3 L Hct (42 - 52 %) 33.4 L MCV (80.0 - 94.0 FL) 82.0 MCH (27.0 - 31.0 PG) 27.6 MCHC (33.0 - 37.0 G/DL) 33.7 RDW (11.5 - 14.5 %) 15.3 H Plt Count (130 - 400 /CUMM) 155 MPV (7.4 - 10.4 FL) 8.0 Gran % (42.2 - 75.2 %) 72.0 Lymphocytes % (20.5 - 51.1 %) 16.9 L Monocytes % (1.7 - 9.3 %) 9.4 H Eosinophils % (0 - 5 %) 1.1 Basophils % (0.0 - 2.0 %) 0.6 Absolute Granulocytes (1.4 - 6.5 /CUMM) 5.3 Absolute Lymphocytes (1.2 - 3.4 /CUMM) 1.2 Absolute Monocytes (0.10 - 0.60 /CUMM) 0.7 H Absolute Eosinophils (0.0 - 0.7 /CUMM) 0.1 Absolute Basophils (0.0 - 0.2 /CUMM) 0 Imaging/Other Studies: Colonoscopy 2015 The rectum was normal. There was extensive sigmoid diverticulosis with tortuosity, edema, fixed angulation, and decreased caliber of the lumen. Diverticula were also noted from left colon to the cecum. Prep was only fair with residual solid stool as well as opaque liquid most of which was washed and suctioned. At the hepatic flexure was a subcentimeter sessile polyp, resected with electrocautery snare and 25 W coiled differential current. The colon was otherwise unremarkable to the base of the cecum, although small polyps may been obscured. Impression: * Polyp * Diverticulosis Assessment/Plan Assessment/Recommendations: Assessment: Mr. Jameson is a 76 year old male with multiple medical problems who has been admitted with hyperkalemia who has also been found to have occult blood in his stool and a one gram hemoglobin drop since admission. As he is without a history of overt GI bleeding, and has not had any active gi bleeding since being admitted it is very unlikely that the occult/microscopic blood that was found in his stool led to the fall in his hgb which is more likely to be hemodilutional. He has some constipation and had a negative colonoscopy in 2014 so it is quite likely that the occult blood is just from hemorrhoids. The preparation on that colonoscopy was only fair so it may be reasonable to repeat that, but as he is without overt GI bleeding this can be addressed as an outpatient. Recommendations: 1. Advance to a high fiber diet as tolerated. 2. Use miralax as needed for constipation 3. Follow daily cbc and transfuse as needed to maintain his hgb > 8 or as per cardiology recommendations. 4. There are no absolute GI contraindications to aspirin if needed for cardiac prophylaxis or anticoagulation if indicated for his afib 5. Use miralax as needed for constipation 6. Treatment of hyperkalemia and CRI as per medical team. 7. Notify GI for signs of overt GI bleeding and if this does not occur would recommend that he follow up with Dr. Raman as an outpatient to discuss a repeat outpatient colonoscopy which based on his age and other comorbidities may not be absolutely necessary. Problem List: 1. Anemia Copies To: Wade GONSALES,Sara Consult Acknowledgment - Thank you for your consult request.
--- NOTE | 2017-09-06 13:27 | Cons- Cardiology ---
General Information and HPI Consulting Request Date of Consult: 09/06/17 Requested By: Bj Mullen MD Reason for Consult: Hyperkalemia.Hyperkalemia. Source of Information: patient, old records Exam Limitations: poor historian History of Present Illness: Mr. Britton Jameson is a 76-year-old male with a history of obesity, hypertension, dyslipidemia, diabetes mellitus, chronic kidney disease, anemia, aortic stenosis, carotid artery disease, moderate to severe concentric left ventricular hypertrophy, previously documented atrial fibrillation for which he was fully anticoagulated for a period of time, and previous acute diastolic heart failure who was advised to ED evaluation after blood work was performed that revealed evidence of hyperkalemia who was advised ED evaluation after blood work was performed that revealed evidence of hyperkalemia (potassium 6.1 mEq/ liter). His last echocardiogram was performed on 04/13/2017 and revealed a normal size left ventricle with moderate concentric left ventricular hypertrophy, normal systolic function with an estimated EF of 55%, an upper normal limit for size right ventricle, normal right atrial size, mildly dilated left atrium, age- related valvular changes, no pericardial effusion, and a mildly dilated ascending aorta. The Doppler portion of the study revealed evidence of trace mitral The Doppler portion of the study revealed evidence of moderate aortic stenosis, trace mitral, trace tricuspid, and trace pulmonic regurgitation, and a "pseudo-normal" left ventricular inflow pattern consistent with stage II diastolic dysfunction. Allergies/Medications Allergies: Coded Allergies: hydrocodone (NAUSEA 04/11/17) Home Med List: Allopurinol 100 MG TABLET 1 TAB PO DAILY GOUT (Reported) Aspirin (Children's Aspirin) 81 MG TAB.CHEW 1 TAB PO DAILY HEART HEALTH ( Reported) Atorvastatin Calcium 40 MG TABLET 0.5 TAB PO DAILY CHOLESTEROL (Reported) Cinnamon Bark (Cinnamon) 500 MG CAPSULE 1 CAP PO DAILY SUPPLEMENT (Reported) Cyanocobalamin (Vitamin B-12) 1,000 MCG TABLET 1 TAB PO DAILY VITAMIN SUPPORT (Reported) Finasteride 5 MG TABLET 1 TAB PO QPM PROSTATE (Reported) Furosemide 20 MG TABLET 3 TAB PO DAILY WATER RETENTION (Reported) Gabapentin 100 MG CAPSULE 1 CAP PO TID NERVE PAIN (Reported) Hydralazine HCl 25 MG TABLET 1 TAB PO TID BP (Reported) Insulin Lispro (Humalog) 100 UNIT/ML VIAL DM (Reported) Insulin-Lantus (Lantus) 100 UNIT/ML VIAL 28 UNITS SC QAM DM (Reported) Insulin-Lantus (Lantus) 100 UNIT/ML VIAL 33 UNITS SC QPM DM (Reported) Lactobacillus Acidophilus (Probiotic) 10 BILLION CELL CAPSULE 1 CAP PO DAILY GI (Reported) Lisinopril 40 MG TABLET 1 TAB PO BID BP (Reported) Metoprolol Tartrate 25 MG TABLET 0.5 TAB PO DAILY HEART/BP (Reported) Minoxidil 2.5 MG TABLET 2 TAB PO BID BP (Reported) Spironolactone (Aldactone) 25 MG TABLET 1 TAB PO DAILY BP (Reported) Review of Systems Review of Systems: A 14 point system review was obtained and was noncontributory, other than as above. 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 Psychosocial History Where Do You Live? Home Smoking Status: Never Smoked ETOH Use: denies use Illicit Drug Use: denies illicit drug use Exam & Diagnostic Data Vital Signs and I&O Vital Signs Date Time Temp Pulse Resp B/P B/P Pulse O2 O2 Flow FiO2 Mean Ox Delivery Rate 09/06 0832 138/70 09/06 0830 136/70 09/06 0640 98.2 71 12 134/64 99 Room Air 09/06 0010 74 142/76 09/05 2239 Room Air 09/05 2222 98.3 74 20 142/76 97 Room Air 09/05 2115 98.2 77 18 154/70 97 Room Air 09/05 1602 98.3 69 18 161/73 100 Room Air 09/05 1459 Room Air 09/05 1357 97.8 74 20 104/61 96 Room Air Intake & Output 09/06 1600 09/06 0800 09/06 0000 09/05 1600 09/05 0800 09/05 0000 Intake Total 400 100 Output Total Balance 400 100 Intake, Oral 400 100 Patient 193 lb 194 lb Weight Weight Reported by Patient Reported by Patient Measurement Method Physical Exam: Well-developed, overweight elderly male elderly male in no acute distress. Vital signs: See above. HEENT: Normocephalic, atraumatic, EOMI, moist mucous membranes. moist mucous membranes. Neck: No JVD, no bruits. Lungs: Clear to auscultation bilaterally. Heart: S1, S2 with grade 2/6 systolic ejection type murmur best heard at the base. No murmur, gallop, or rub. Abdomen: Soft, nontender, positive bowel sounds. Extremities: No edema. Labs/[place] Results: Laboratory Tests 09/06 09/05 0618 2150 Chemistry Sodium (137 - 145 mmol/L) 145 144 Potassium (3.5 - 5.1 mmol/L) 4.9 5.7 H Chloride (98 - 107 mmol/L) 112 H 110 H Carbon Dioxide (22 - 30 mmol/L) 19 L 19 L Anion Gap (5 - 16) 14 15 BUN (9 - 20 mg/dL) 58 H 63 H Creatinine (0.7 - 1.2 mg/dL) 1.7 H 2.0 H Estimated GFR (>60 ml/min) 39 L 32 L BUN/Creatinine Ratio (7 - 25 %) 34.1 H 31.5 H Hematology CBC w Diff NO MAN DIFF REQ WBC (4.8 - 10.8 /CUMM) 6.3 RBC (4.70 - 6.10 /CUMM) 3.76 L Hgb (14.0 - 18.0 G/DL) 10.4 L Hct (42 - 52 %) 30.7 L MCV (80.0 - 94.0 FL) 81.6 MCH (27.0 - 31.0 PG) 27.7 MCHC (33.0 - 37.0 G/DL) 34.0 RDW (11.5 - 14.5 %) 15.2 H Plt Count (130 - 400 /CUMM) 143 MPV (7.4 - 10.4 FL) 8.5 Gran % (42.2 - 75.2 %) 68.4 Lymphocytes % (20.5 - 51.1 %) 20.5 Monocytes % (1.7 - 9.3 %) 9.4 H Eosinophils % (0 - 5 %) 1.2 Basophils % (0.0 - 2.0 %) 0.5 Absolute Granulocytes (1.4 - 6.5 /CUMM) 4.3 Absolute Lymphocytes (1.2 - 3.4 /CUMM) 1.3 Absolute Monocytes (0.10 - 0.60 /CUMM) 0.6 Absolute Eosinophils (0.0 - 0.7 /CUMM) 0.1 Absolute Basophils (0.0 - 0.2 /CUMM) 0 09/05 1410 Chemistry Sodium (137 - 145 mmol/L) 144 Potassium (3.5 - 5.1 mmol/L) 5.9 H Chloride (98 - 107 mmol/L) 108 H Carbon Dioxide (22 - 30 mmol/L) 21 L Anion Gap (5 - 16) 15 BUN (9 - 20 mg/dL) 69 H Creatinine (0.7 - 1.2 mg/dL) 2.2 H Estimated GFR (>60 ml/min) 29 L BUN/Creatinine Ratio (7 - 25 %) 31.4 H Glucose (65 - 99 mg/dL) 215 H Calcium (8.4 - 10.2 mg/dL) 10.5 H Total Bilirubin (0.2 - 1.3 mg/dL) 0.5 AST (17 - 59 U/L) 26 ALT (21 - 72 U/L) 32 Alkaline Phosphatase (< 127 U/L) 73 Total Protein (6.3 - 8.2 g/dL) 7.6 Albumin (3.5 - 5.0 g/dL) 4.8 Globulin (1.9 - 4.2 gm/dL) 2.8 Albumin/Globulin Ratio (1.1 - 2.2 %) 1.7 Hematology CBC w Diff NO MAN DIFF REQ WBC (4.8 - 10.8 /CUMM) 7.4 RBC (4.70 - 6.10 /CUMM) 4.08 L Hgb (14.0 - 18.0 G/DL) 11.3 L Hct (42 - 52 %) 33.4 L MCV (80.0 - 94.0 FL) 82.0 MCH (27.0 - 31.0 PG) 27.6 MCHC (33.0 - 37.0 G/DL) 33.7 RDW (11.5 - 14.5 %) 15.3 H Plt Count (130 - 400 /CUMM) 155 MPV (7.4 - 10.4 FL) 8.0 Gran % (42.2 - 75.2 %) 72.0 Lymphocytes % (20.5 - 51.1 %) 16.9 L Monocytes % (1.7 - 9.3 %) 9.4 H Eosinophils % (0 - 5 %) 1.1 Basophils % (0.0 - 2.0 %) 0.6 Absolute Granulocytes (1.4 - 6.5 /CUMM) 5.3 Absolute Lymphocytes (1.2 - 3.4 /CUMM) 1.2 Absolute Monocytes (0.10 - 0.60 /CUMM) 0.7 H Absolute Eosinophils (0.0 - 0.7 /CUMM) 0.1 Absolute Basophils (0.0 - 0.2 /CUMM) 0 Diagnostic Data EKG Results 09/05/2017: Sinus rhythm, first-degree AV block, left anterior fascicular block, probable LVH,, and abnormal T-wave abnormalities in diffuse leads, consider ischemia. No significant change when compared to previous tracing from 2016. Assessment/Plan Assessment/Plan [id number] w/ hx HTN, HLD, DM, CKD, anemia, , carotid artery dz, LVH, previous AF, & previous acute diastolic heart failure who was advised ED evaluation after blood work was performed 09/05/2017 that revealed evidence of hyperkalemia ( potassium 6.1 mEq/liter). He had his BINU inhibitor discontinued on Sunday (09/05/2017) and the plan was to discontinue the Aldactone if his potassium remained elevated. Given his persistent hyperkalemia the Aldactone was also held and he received SPS in the ED with resolution of his hyperkalemia. It was initially reported that he was in atrial fibrillation, however, his 12- lead electrocardiogram and telemetry monitoring suggests that he is in sinus rhythm with first-degree AV block. The issue of anticoagulation was raised, based on the suspicion that he was in atrial fibrillation and he was found to have Hemoccult-positive blood, so anticoagulation was not initiated. Consult Acknowledgment - Thank you for your consult request.
[2017-09-06] MEDS ORDERED: COLACE100 M1 PO ×2 (13:29→15:22)
[2017-09-06] MEDS ORDERED: MILK OF MA400 MG/52 PO ×2 (13:29→15:22)
--- NOTE | 2017-09-06 15:29 | Discharge Summary ---
Visit Information Visit Dates Admission Date: 09/05/17 Discharge Date: 09/06/17 Hospital Course Course Attending Physician: Bj Mullen MD Primary Care Physician: Wade GONSALESSara Hospital Course: 77-year-old gentleman with past medical history of CHF, chronic kidney disease, CAD, hypertension, gout, questionable paroxysmal A. fib not on anticoagulation diabetes on insulin was sent by his beer runner per hospital for workup of elevated potassium. Patient reported that he has been having shortness of breath for couple of weeks and And increased leg swelling has been followed up at [facility] by Dr. Leary. He checks weekly BP and IV Las[facility], he reported that his potassium level was elevated in couple of blood works recently, his last blood that was done on the day of admission which was done at Dr. Leary's office which showed that his potassium was 6.1 and he was advised to come to the hospital. He said he noted that patient's leg swelling and shortness of breath have improved with IV Lasix. According to the patient Dr. Leary stopped lisinopril on Sunday. However patient is still on his spironolactone. His sugars are around 160 to 250 during the day. patient denied any chest pain, nausea, vomiting, abdominal pain, headache, shortness of breath on exertion, increased leg swelling, fevers, chills. Hospital course 1. Hyperkalemia His hyperkalemia was most likely secondary due to spironolactone/lisinopril. In ED patient patient received calcium gluconate with insulin, Kayexalate and normal saline. His repeat potassium was 4.9 upon discharge. Plan to continue metoprolol for now. Cardiology follow-up as outpatient. 2. Diabetes Continue Levemir 33 unit at bedtime and 28 U in the morning with medium sliding scale insulin, Accu-Cheks, diabetic diet , continue gabapentin for diabetic neuropathy. 3. Atrial fibrillation Patient has history of proximal A. fib and following Dr. Leary. Patient is not on any anticoagulation for the past 6 months. The same was discussed with Dr. Meza. Patient upon admission was in normal sinus rhythm with a heart rate of 80. Hence decided to watch him off anticoagulants. 4. CKD and gout Continue allopurinol for gout, 5. CHF Continue Lasix 60 mg daily, I and Os and daily weights 6. CAD, hypertension Hold sprinolactone and lisinopril, continue hydralazine, metoprolol continue statin. Complications: none Allergies: Coded Allergies: hydrocodone (NAUSEA 04/11/17) Disposition Summary Disposition Principal Diagnosis: hyperkalemia Hypertension Additional Diagnosis: Paroxisysmal Atrial Fibrillation Discharge Disposition: home or self care Discharge Instructions General Discharge Information Code Status: Full Code Patient's Diet: Heart healthy diet Patient's Activity: As tolerated Follow-Up Instructions/Appts: Please follow-up with your primary care provider within 1-2 weeks of discharge. Please follow-up with the beer runner within 1-2 weeks of discharge. We are holding your Spirino lactone. Please discuss with the primary care physician and beer runner within 1-2 weeks regarding restarting the meds. Please follow-up with suture winder hand Dr. Raman for outpatient colonoscopy. Please do a CBC and BMP in a week. Medications at Discharge Discharge Medications: Stop taking the following medications: Lisinopril (Lisinopril) 40 MG TABLET ORAL TWICE DAILY Spironolactone (Aldactone) 25 MG TABLET ORAL DAILY Continue taking these medications: Hydralazine HCl (Hydralazine HCl) 25 MG TABLET 1 Tablet ORAL THREE TIMES DAILY Comments: Last Taken:09/06/17 Time:1000 Finasteride (Finasteride) 5 MG TABLET 1 Tablet ORAL Every night Comments: Last Taken:09/05/17 Time:2100 Furosemide (Furosemide) 20 MG TABLET 3 Tablet ORAL DAILY Comments: Last Taken:09/06/17 Time:1000 Minoxidil (Minoxidil) 2.5 MG TABLET 2 Tablet ORAL TWICE DAILY Comments: Last Taken:04/13/2017 Time:1000 Aspirin (Children's Aspirin) 81 MG TAB.CHEW 1 Tablet ORAL DAILY Comments: Last Taken:09/06/17 Time:1000 Metoprolol Tartrate (Metoprolol Tartrate) 25 MG TABLET 0.5 Tablet ORAL DAILY Qty = 90 Comments: Last Taken:09/06/17 Time:1000 Allopurinol (Allopurinol) 100 MG TABLET 1 Tablet ORAL DAILY Qty = 90 Comments: Last Taken:09/06/17 Time:1000 Cyanocobalamin (Vitamin B-12) 1,000 MCG TABLET 1 Tablet ORAL DAILY Comments: Last Taken:09/06/17 Time:1000 Cinnamon Bark (Cinnamon) 500 MG CAPSULE 1 Capsule ORAL DAILY Lactobacillus Acidophilus (Probiotic) 10 BILLION CELL CAPSULE 1 Capsule ORAL DAILY Atorvastatin Calcium (Atorvastatin Calcium) 40 MG TABLET 0.5 Tablet ORAL DAILY Qty = 90 Comments: Last Taken:09/05/17 Time:1700 Gabapentin (Gabapentin) 100 MG CAPSULE 1 Capsule ORAL THREE TIMES DAILY Qty = 270 Comments: Last Taken:09/06/17 Time:1000 Insulin-Lantus (Lantus) 100 UNIT/ML VIAL 28 Units Inject into fatty tissue Every Morning Comments: Last Taken:09/06/17 Time:1000 Insulin-Lantus (Lantus) 100 UNIT/ML VIAL 33 Units Inject into fatty tissue Every night Comments: Last Taken:09/05/17 Time:2200 Insulin Lispro (Humalog) 100 UNIT/ML VIAL Units Inject into fatty tissue BEFORE MEALS AND AT BEDTIME Comments: Last Taken:09/06/17 Time:0800 Start taking the following new medications: Docusate Sodium (Colace) 100 MG CAPSULE 1 Capsule ORAL TWICE DAILY as needed for CONSTIPATION Qty = 60 No Refills Instructions: . Magnesium Hydroxide (Milk Of Magnesia) 400 MG/5 ML ORAL.SUSP 5 Milliliters ORAL DAILY NEEDED as needed for CONSTIPATION Qty = 300 Refills = 1 Instructions: . Copies To: Sapphire GONSALES,Timothy Lee; Wade GONSALES,Sara Attending MD Review Statement Documenting Attending: Bj Mullen MD Other Findings: Discharged instable condition.
== END 2017-09-06 15:53 | DRG 641 ==
LOC: ERH 13:37 → ERHI 17:24 → 1NO 17:24 → ENRESERV 21:10 → ENTRNSPT 21:59 → EDTRNSPTSTS 22:02 → 1NO 22:17 → CMPTRNSPT 22:22 → 1NO 09-06 08:04 → ENPENDDIS 09-06 14:43 → ENTRNSPT 09-06 15:31 → EDTRNSPTSTS 09-06 15:49 → 1NO 09-06 15:53 → CMPTRNSPT 09-06 16:04
PROVIDERS: Emergency Medicine; Internal Medicine
DX: E87.5 Hyperkalemia (principal); E11.22 Type 2 diabetes mellitus with diabetic chronic kidney disease; I48.2 Chronic atrial fibrillation; I13.0 Hypertensive heart and chronic kidney disease with heart failure and stage 1 through stage 4 chronic kidney disease, or unspecified chronic kidney disease; I50.32 Chronic diastolic (congestive) heart failure; D64.9 Anemia, unspecified; E66.9 Obesity, unspecified; Z79.4 Long term (current) use of insulin; N18.9 Chronic kidney disease, unspecified; R19.5 Other fecal abnormalities; Z68.31 Body mass index [BMI] 31.0-31.9, adult; I44.4 Left anterior fascicular block; T50.0X5A Adverse effect of mineralocorticoids and their antagonists, initial encounter; T46.4X5A Adverse effect of angiotensin-converting-enzyme inhibitors, initial encounter; Y92.009 Unspecified place in unspecified non-institutional (private) residence as the place of occurrence of the external cause; M10.9 Gout, unspecified; Z88.5 Allergy status to narcotic agent; Z79.82 Long term (current) use of aspirin; Z82.49 Family history of ischemic heart disease and other diseases of the circulatory system; I25.10 Atherosclerotic heart disease of native coronary artery without angina pectoris; I44.0 Atrioventricular block, first degree; K59.00 Constipation, unspecified
CPT/HCPCS: 1NP; 36415; 82436; 93005; 93010; J0610; J1644; J3490

== ENCOUNTER 2017-10-01 14:28 | Inpatient (IN) | payer OTHER, MEDICARE ==
[~2017-10-01] VITALS: Ht 167.6 cm; Wt 90.3 kg
[~2017-10-01 14:28] MED LIST changes: +ATORVASTATIN CA40 M1 PO; +COLACE100 M1 PO; +GABAPENTIN100 M2 PO; +HUMALOG100 UNIT/2 SC; +LANTUS100 UNIT/1 SC; +MILK OF MA400 MG/52 PO
--- NOTE | 2017-10-01 14:59 | ED DYSPNEA/ASTHMA COMPLAINT ---
See Addendum History of Present Illness General Chief Complaint: Dyspnea (COPD, CHF, Other) Stated Complaint: SOB Source: patient, family, old records Exam Limitations: no limitations Vital Signs & Intake/Output Vital Signs & Intake/Output Vital Signs Date Time Temp Pulse Resp B/P B/P Pulse O2 O2 Flow FiO2 Mean Ox Delivery Rate 10/01 2004 68 22 114/56 98 Nasal 3.0L Cannula 10/01 1808 98.5 73 22 136/62 100 Nasal 3.0L Cannula 10/01 1535 97 Nasal 3.0L Cannula 10/01 1534 98.0 75 22 151/66 96 Nasal Cannula 10/01 1439 98.1 98 26 166/89 96 Nasal 3.0L Cannula Allergies Coded Allergies: hydrocodone (NAUSEA 04/11/17) Reconcile Medications Allopurinol 100 MG TABLET 1 TAB PO DAILY GOUT (Reported) Aspirin (Children's Aspirin) 81 MG TAB.CHEW 1 TAB PO DAILY HEART HEALTH ( Reported) Atorvastatin Calcium 40 MG TABLET 0.5 TAB PO DAILY CHOLESTEROL (Reported) Cinnamon Bark (Cinnamon) 500 MG CAPSULE 1 CAP PO DAILY SUPPLEMENT (Reported) Cyanocobalamin (Vitamin B-12) 1,000 MCG TABLET 1 TAB PO DAILY VITAMIN SUPPORT (Reported) Docusate Sodium (Colace) 100 MG CAPSULE 1 CAP PO BID PRN CONSTIPATION . Finasteride 5 MG TABLET 1 TAB PO QPM PROSTATE (Reported) Furosemide 20 MG TABLET 3 TAB PO DAILY WATER RETENTION (Reported) Gabapentin 100 MG CAPSULE 1 CAP PO TID NERVE PAIN (Reported) Hydralazine HCl 25 MG TABLET 1 TAB PO TID BP (Reported) Insulin Lispro (Humalog) 100 UNIT/ML VIAL DM (Reported) Insulin-Lantus (Lantus) 100 UNIT/ML VIAL 28 UNITS SC QAM DM (Reported) Insulin-Lantus (Lantus) 100 UNIT/ML VIAL 33 UNITS SC QPM DM (Reported) Lactobacillus Acidophilus (Probiotic) 10 BILLION CELL CAPSULE 1 CAP PO DAILY GI (Reported) Magnesium Hydroxide (Milk Of Magnesia) 400 MG/5 ML ORAL.SUSP 5 ML PO DAILY NEEDED PRN CONSTIPATION . Metoprolol Tartrate 25 MG TABLET 0.5 TAB PO DAILY HEART/BP (Reported) Minoxidil 2.5 MG TABLET 2 TAB PO BID BP (Reported) Triage Note: SIB DR VALLE FOR SOB. PT STATES HE HAS BEEN SOB FOR A FEW DAYS BECOMING WORSE TODAY. PT DENIES CP O2 SAT 88% ON RA. PLACED ON 3LNC SATS 96% Triage Nurses Notes Reviewed? yes Onset: Gradual Duration: week(s): Timing: recent history Severity: moderate Activities at Onset: activity HPI: 76yo male with hx of CHF, a fib, HTN, DM presents to ED sent in by Dr. Valle for abnormal CXR this AM. Patient states that he has had dyspnea persistent 4 weeks however recent dyspnea worsening over the past few days. Patient was at CHF clinic and had a dose of IV Lasix and was referred for outpatient chest x- ray. Patient states that he was called from home and told to report to the emergency department for abnormal chest x-ray. Patient states dyspnea is worse with walking. Patient notes mild swelling to bilateral lower legs, possibly slightly worse than normal. Patient denies abdominal pain, chest pain, presyncope, fever, chills, sputum production, hemoptysis. (Fernanda Miller) Past History Travel History Traveled to [place] past 21 day No Medical History Any Pertinent Medical History? see below for history Neurological: NONE EENT: NONE Cardiovascular: AFIB, CHF, hypertension Respiratory: NONE Gastrointestinal: NONE Hepatic: NONE Renal: "LOW FUNCTIONING KIDNEYS" Musculoskeletal: NONE Psychiatric: NONE Endocrine: diabetes Blood Disorders: NONE Cancer(s): NONE PRODUCT ASSURANCE ENGINEER/Reproductive: NONE History of MRSA: No History of VRE: No History of CDIFF: No Surgical History Surgical History: BACK SURGERIES RIGHT TKR Psychosocial History Who do you live with Significant Other What is your primary language Latvian Tobacco Use: Never used ETOH Use: denies use Illicit Drug Use: denies illicit drug use Family History Family History, If Any: MOTHER (CAD, multiple familes on mother sides had heart attack before 60). Hx Contributory? No (Fernanda Miller) Review of Systems Review of Systems Constitutional: Reports: no symptoms. EENTM: Reports: no symptoms. Respiratory: Reports: see HPI. Cardiovascular: Reports: see HPI. GI: Reports: no symptoms. Genitourinary: Reports: no symptoms. Musculoskeletal: Reports: see HPI. Skin: Reports: no symptoms. Neurological/Psychological: Reports: no symptoms. Hematologic/Endocrine: Reports: no symptoms. Immunologic/Allergic: Reports: no symptoms. All Other Systems: Reviewed and Negative (Fernanda Millerle) Physical Exam Physical Exam General Appearance: well developed/nourished, no apparent distress, alert, awake Head: atraumatic, normal appearance Eyes: Bilateral: normal appearance. Ears, Nose, Throat: hearing grossly normal Neck: normal inspection, supple, full range of motion Respiratory: expiratory wheezes bilaterally, diminished breath sounds right lower lung field Cardiovascular: irregularly irregular Peripheral Pulses: 2+ radial (R), 2+ radial (L) Gastrointestinal: normal bowel sounds, soft, non-tender, no organomegaly Extremities: 1+ pitting edema LLE Neurologic/Psych: awake, alert, oriented x 3 Skin: intact, normal color, warm/dry Core Measures ACS in differential dx? Yes CVA/TIA Diagnosis No Sepsis Present: No Sepsis Focused Exam Completed? No (Kecia MAIER,Fernanda Dee) Progress Differential Diagnosis: AMI, bronchitis, CHF, COPD, pulmonary embolism, pneumonia, pneumothorax Plan of Care: Orders Procedure Date/time Status Heart Healthy Diet 10/02 B Active ED Holding Orders 10/01 2024 Active Admit to inpatient 10/01 2024 Active Vital Signs 10/01 2024 Active Code Status 10/01 2024 Active LACTIC ACID 10/[address] CHEST WO IV CONTRAST 10/01 1635 Active RAPID VIRAL INFLUENZA A 10/01 1607 Complete BLOOD CULTURE 10/01 1459 Active TROPONIN LEVEL 10/01 1459 Complete LACTIC ACID 10/01 1459 Complete COMPREHENSIVE METABOLIC PANEL 10/01 1459 Complete CBC WITHOUT DIFFERENTIAL 10/01 1459 Complete B-TYPE NATRIURETIC PEP (BNP) 10/01 1459 Complete EKG 10/01 1430 Active Laboratory Tests 10/01/17 1739: Lactic Acid 1.1 10/01/17 1500: Anion Gap 15, Estimated GFR 32 L, BUN/Creatinine Ratio 20.0, Glucose 188 H, Lactic Acid 2.0, Calcium 10.4 H, Total Bilirubin 1.0, AST 24, ALT 38, Alkaline Phosphatase 69, Troponin I 0.20 *H, Kee-J-Hugtfycdins Pept 4210 H, Total Protein 7.0, Albumin 4.4, Globulin 2.6, Albumin/Globulin Ratio 1.7, CBC w Diff NO MAN DIFF REQ, RBC 4.05 L, MCV 81.1, MCH 26.7 L, MCHC 33.0, RDW 15.5 H, MPV 7.5, Gran % 73.2, Lymphocytes % 15.2 L, Monocytes % 10.6 H, Eosinophils % 0.4, Basophils % 0.6, Absolute Granulocytes 5.6, Absolute Lymphocytes 1.2, Absolute Monocytes 0.8 H, Absolute Eosinophils 0, Absolute Basophils 0 Microbiology 10/01 1700 NASOPHARYN: Influenza Virus A & B Rapid Smear - COMP 10/01 1525 BLOOD: Blood Culture - RECD 10/01 1500 BLOOD: Blood Culture - RECD CXR and V/Q from earlier today reviewed. Chest x-ray shows worsening opacities in lung murphy representing infectious/inflammatory process. V/Q shows very low probability of pulmonary embolism. Spoke with Dr. Valle regarding this patient. He recommends noncontrast chest CT scan to further evaluate given abnormal chest x-ray. Dr. Valle present to see and evaluate patient. Patient with low oxygen saturation requiring supplemental O2. The patient was signed out to Dr. Sotelo pending CT scan and hospital admission. Diagnostic Imaging: Viewed by Me: Radiology Read. Discussed w/RAD: Radiology Read. CXR Impression: PATIENT: RANJAN TAPIA PRESENT AGE: 76 PATIENT ACCOUNT NO: [id number] : 38 LOCATION: [facility] ORDERING PHYSICIAN: Timothy Valle MD SERVICE DATE: 10/01/17 EXAM TYPE: RAD - [facility]-CHEST XRAY, TWO VIEWS EXAMINATION: XR CHEST CLINICAL INFORMATION: Shortness of breath COMPARISON: CT 08/16/2017, chest x-ray 08/14/2017 TECHNIQUE: 2 views of the chest were obtained. FINDINGS: Lung volumes are symmetric. There are scattered regions of mild, ill-defined opacity in the mid to lower lungs bilaterally; overall these appear more prominent than on 08/14/2017. No evidence of pneumothorax or pleural effusion. Cardiac size appears near the upper limits of normal. No acute osseous findings are seen. IMPRESSION: Scattered regions of mild, ill-defined opacity in the mid to lower lungs, overall increased from 04/2018. Appearance suggests an infectious/inflammatory etiology, for which imaging follow-up is advised. DICTATED BY: Chencho Encarnacion MD DATE/TIME DICTATED :10/01/171243 TELEPHONE ADVICE NURSE:CORBY DATE/TIME TRANSCRIBED:10/01/171243 CONFIDENTIAL, DO NOT COPY WITHOUT APPROPRIATE AUTHORIZATION. < Electronically signed in Other Vendor System> SIGNED BY: Chencho Encarnacion MD 10/01/17 1250, PATIENT: RANJAN TAPIA PRESENT AGE: 76 PATIENT ACCOUNT NO: [id number] : 38 LOCATION: [facility] ORDERING PHYSICIAN: Timothy Valle MD SERVICE DATE: 10/01/17-1120 EXAM TYPE: NUC - LUNG SCAN (V/ Q) EXAMINATION: PULMONARY VENTILATION PERFUSION STUDY CLINICAL INFORMATION: Shortness of breath. COMPARISON: No previous lung scan is available for comparison. A radiograph of the chest dated 10/01/2017, the same date as this lung scan, is available for comparison. TECHNIQUE: Serial gamma scintillation camera images were obtained over the posterior chest during the single breath, equilibrium rebreathing and washout of 10.1 mCi Xe 133 gas. The patient then received 4.4 mCi Tc-99m MAA intravenously and a 6-view perfusion study was performed. FINDINGS: Ventilation images: On the single breath and equilibrium images there is mildly diminished activity in the medial aspect of the mid left lung, likely corresponding to dilatation the heart and mediastinum. During the washout phase there is very minimal gas retention at the left lung base. Perfusion images: No segmental perfusion defects are present. There is homogeneous distribution of activity bilaterally. There is dilatation the cardiac silhouette and mediastinum. The ventilation and perfusion images are well matched. There are no focal anatomic appearing perfusion defects present. IMPRESSION: Very low probability of pulmonary embolism. Dilatation of the cardiac silhouette and mediastinum are noted. DICTATED BY: Osei Muller MD DATE/TIME DICTATED:10/01/171305 TELEPHONE ADVICE NURSE:CORBY DATE/TIME TRANSCRIBED:10/01/171305 CONFIDENTIAL, DO NOT COPY WITHOUT APPROPRIATE AUTHORIZATION. <Electronically signed in Other Vendor System> SIGNED BY: Osei Muller MD 10/01/17 1322 Initial ED EKG: atrial fibrillation @74 bpm, PVCs, LAFB Hand-Off Endorsed To: Will Sotelo MD Endorsed Time: 1809 Pending: CT (Fernanda Miller) Hand-Off Endorsed To: Ray Lux MD Endorsed Time: 1909 Pending: CT (CTA r/o PE per Dr. Valle) (Will Sotelo MD) Departure Departure Disposition: STILL A PATIENT Condition: Stable Referrals: Wade GONSALES,Sara (PCP/Family) Departure Forms: Customer Survey General Discharge Information (Fernanda Miller) Departure Clinical Impression Primary Impression: Dyspnea Secondary Impressions: Elevated troponin, Hypoxia, Renal insufficiency PA/ASPHALT MIXING MACHINE OPERATOR Co-Sign Statement Statement: ED Attending supervision documentation- x I saw and evaluated the patient. I have also reviewed all the pertinent lab results and diagnostic results. I agree with the findings and the plan of care as documented in the PA's/ASPHALT MIXING MACHINE OPERATOR's documentation. Dyspnea at rest and exertion, chronic afib with CRI [] I have reviewed the ED Record and agree with the PA's/ASPHALT MIXING MACHINE OPERATOR's documentation. [] Additions or exceptions (if any) to the PAs/ASPHALT MIXING MACHINE OPERATOR's note and plan are summarized below: [] (Ashleigh GONSALES,Will) Admission Note Spoke With: Lexx Dumont MD Documentation of Exam: Documentation of any treatments & extenuating circumstances including Concerns Regarding Discharge (functional status, medication knowledge or non-compliance, living conditions, etc.) that warrant an admission rather than observation: [ TELE MONITORING, SERIAL ENZYMES, CARDIOLOGY CONSULTATION, IV DIURESIS, patient is symptomatic and failed outpatient treatment. Patient is a high risk if early discharge.] PA/ASPHALT MIXING MACHINE OPERATOR Co-Sign Statement Statement: ED Attending supervision documentation- [X] I saw and evaluated the patient. I have also reviewed all the pertinent lab results and diagnostic results. I agree with the findings and the plan of care as documented in the PA's/ASPHALT MIXING MACHINE OPERATOR's documentation. [X] I have reviewed the ED Record and agree with the PA's/ASPHALT MIXING MACHINE OPERATOR's documentation. [] Additions or exceptions (if any) to the PAs/ASPHALT MIXING MACHINE OPERATOR's note and plan are summarized below: [] (Maci GONSALES,Ray Guzman) Critical Care Note Critical Care Note Critical Care Time: 30-74 min (Fernanda Miller)
[2017-10-01 15:14] LABS: ABSOLUTE BASOPHIL COUNT 0 /CUMM (0.0-0.2); ABSOLUTE EOSINOPHIL COUNT 0 /CUMM (0.0-0.7); ABSOLUTE GRANULOCYTE CT 5.6 /CUMM (1.4-6.5); ABSOLUTE LYMPH COUNT 1.2 /CUMM (1.2-3.4); ABSOLUTE MONOCYTE COUNT 0.8 /CUMM (0.10-0.60); BASOPHIL % 0.6 % (0.0-2.0); EOSINOPHIL % 0.4 % (0-5); GRANULOCYTE % 73.2 % (42.2-75.2); HEMATOCRIT 32.8 % (42-52); MEAN CORPUSCULAR HGB 26.7 PG (27.0-31.0); MEAN CORPUSCULAR VOLUME 81.1 FL (80.0-94.0); MEAN PLATELET VOLUME 7.5 FL (7.4-10.4); PLATELET COUNT 179 /CUMM (130-400); RBC DISTRIBUTION WIDTH 15.5 % (11.5-14.5); RED BLOOD CELL CT 4.05 /CUMM (4.70-6.10); WHITE BLOOD CELL COUNT 7.6 /CUMM (4.8-10.8)
--- NOTE | 2017-10-01 18:29 | Cons- Cardiology ---
General Information and HPI Consulting Request Date of Consult: 10/01/17 Requested By: Bj Mullen MD Reason for Consult: Shortness of breath. Source of Information: patient, family, old records Exam Limitations: poor historian History of Present Illness: Mr. Britton Jameson is a 76-year-old male with a history of obesity, hypertension, dyslipidemia, diabetes mellitus, chronic kidney disease, anemia, aortic stenosis, carotid artery disease, moderate to severe concentric left ventricular hypertrophy, previously documented atrial fibrillation for which he was fully anticoagulated for a period of time, and previous acute diastolic heart failure who was advised ED evaluation after he called our office and reported worsening shortness of breath. He was last hospitalized here 09/05-09/06/2017 for hyperkalemia that improved with standard therapy. His last echocardiogram was performed on 04/13/2017 and revealed a normal size left ventricle with moderate concentric left ventricular hypertrophy, normal systolic function with an estimated EF of 55%, an upper normal limit for size right ventricle, normal right atrial size, mildly dilated left atrium, age- related valvular changes, no pericardial effusion, and a mildly dilated ascending aorta. The Doppler portion of the study revealed evidence of trace mitral The Doppler portion of the study revealed evidence of moderate aortic stenosis, trace mitral, trace tricuspid, and trace pulmonic regurgitation, and a "pseudo-normal" left ventricular inflow pattern consistent with stage II diastolic dysfunction. Allergies/Medications Allergies: Coded Allergies: hydrocodone (NAUSEA 04/11/17) Home Med List: Allopurinol 100 MG TABLET 1 TAB PO DAILY GOUT (Reported) Aspirin (Children's Aspirin) 81 MG TAB.CHEW 1 TAB PO DAILY HEART HEALTH ( Reported) Atorvastatin Calcium 40 MG TABLET 0.5 TAB PO DAILY CHOLESTEROL (Reported) Cinnamon Bark (Cinnamon) 500 MG CAPSULE 1 CAP PO DAILY SUPPLEMENT (Reported) Cyanocobalamin (Vitamin B-12) 1,000 MCG TABLET 1 TAB PO DAILY VITAMIN SUPPORT (Reported) Docusate Sodium (Colace) 100 MG CAPSULE 1 CAP PO BID PRN CONSTIPATION . Finasteride 5 MG TABLET 1 TAB PO QPM PROSTATE (Reported) Furosemide 20 MG TABLET 3 TAB PO DAILY WATER RETENTION (Reported) Gabapentin 100 MG CAPSULE 1 CAP PO TID NERVE PAIN (Reported) Hydralazine HCl 25 MG TABLET 1 TAB PO TID BP (Reported) Insulin Lispro (Humalog) 100 UNIT/ML VIAL DM (Reported) Insulin-Lantus (Lantus) 100 UNIT/ML VIAL 28 UNITS SC QAM DM (Reported) Insulin-Lantus (Lantus) 100 UNIT/ML VIAL 33 UNITS SC QPM DM (Reported) Lactobacillus Acidophilus (Probiotic) 10 BILLION CELL CAPSULE 1 CAP PO DAILY GI (Reported) Magnesium Hydroxide (Milk Of Magnesia) 400 MG/5 ML ORAL.SUSP 5 ML PO DAILY NEEDED PRN CONSTIPATION . Metoprolol Tartrate 25 MG TABLET 0.5 TAB PO DAILY HEART/BP (Reported) Minoxidil 2.5 MG TABLET 2 TAB PO BID BP (Reported) Review of Systems Review of Systems: A 14 point system review was obtained and was noncontributory, other than as above. Past History Travel History Traveled to [place] past 21 day No Medical History Neurological: NONE EENT: NONE Cardiovascular: AFIB, CHF, hypertension Respiratory: NONE Gastrointestinal: NONE Hepatic: NONE Renal: "LOW FUNCTIONING KIDNEYS" Musculoskeletal: NONE Psychiatric: NONE Endocrine: diabetes Blood Disorders: NONE Cancer(s): NONE DELIVERY COORDINATOR/Reproductive: NONE Surgical History Surgical History: BACK SURGERIES RIGHT TKR Family History Relations & Conditions If Any: MOTHER (CAD, multiple familes on mother sides had heart attack before 60). Psychosocial History ETOH Use: denies use Illicit Drug Use: denies illicit drug use Exam & Diagnostic Data Vital Signs and I&O Vital Signs Date Time Temp Pulse Resp B/P B/P Pulse O2 O2 Flow FiO2 Mean Ox Delivery Rate 10/01 1808 98.5 73 22 136/62 100 Nasal 3.0L Cannula 10/01 1535 97 Nasal 3.0L Cannula 10/01 1534 98.0 75 22 151/66 96 Nasal Cannula 10/01 1439 98.1 98 26 166/89 96 Nasal 3.0L Cannula Intake & Output 10/01 1600 10/01 0800 10/01 0000 09/30 1600 09/30 0800 09/30 0000 Intake Total 0 Output Total Balance 0 Intake, Oral 0 Patient 196 lb Weight Weight Reported by Patient Measurement Method Physical Exam: Well-developed, overweight elderly male elderly male in no acute distress. Vital signs: See above. HEENT: Normocephalic, atraumatic, EOMI, moist mucous membranes. moist mucous membranes. Neck: No JVD, no bruits. Lungs: Decreased breath sounds bilaterally. Heart: S1, S2 with grade 2/6 systolic ejection type murmur best heard at the base. No murmur, gallop, or rub. Abdomen: Soft, nontender, positive bowel sounds. Extremities: No edema. Labs/Desean Results: Laboratory Tests 10/01 10/01 1739 1500 Chemistry Sodium (137 - 145 mmol/L) 144 Potassium (3.5 - 5.1 mmol/L) 4.3 Chloride (98 - 107 mmol/L) 104 Carbon Dioxide (22 - 30 mmol/L) 25 Anion Gap (5 - 16) 15 BUN (9 - 20 mg/dL) 40 H Creatinine (0.7 - 1.2 mg/dL) 2.0 H Estimated GFR (>60 ml/min) 32 L BUN/Creatinine Ratio (7 - 25 %) 20.0 Glucose (65 - 99 mg/dL) 188 H Lactic Acid (0.7 - 2.1 mmol/L) 1.1 2.0 Calcium (8.4 - 10.2 mg/dL) 10.4 H Total Bilirubin (0.2 - 1.3 mg/dL) 1.0 AST (17 - 59 U/L) 24 ALT (21 - 72 U/L) 38 Alkaline Phosphatase (< 127 U/L) 69 Troponin I (<0.11 ng/ml) 0.20 *H [id number] Pept (<125 pg/mL) 4210 H Total Protein (6.3 - 8.2 g/dL) 7.0 Albumin (3.5 - 5.0 g/dL) 4.4 Globulin (1.9 - 4.2 gm/dL) 2.6 Albumin/Globulin Ratio (1.1 - 2.2 %) 1.7 Hematology CBC w Diff NO MAN DIFF REQ WBC (4.8 - 10.8 /CUMM) 7.6 RBC (4.70 - 6.10 /CUMM) 4.05 L Hgb (14.0 - 18.0 G/DL) 10.8 L Hct (42 - 52 %) 32.8 L MCV (80.0 - 94.0 FL) 81.1 MCH (27.0 - 31.0 PG) 26.7 L MCHC (33.0 - 37.0 G/DL) 33.0 RDW (11.5 - 14.5 %) 15.5 H Plt Count (130 - 400 /CUMM) 179 MPV (7.4 - 10.4 FL) 7.5 Gran % (42.2 - 75.2 %) 73.2 Lymphocytes % (20.5 - 51.1 %) 15.2 L Monocytes % (1.7 - 9.3 %) 10.6 H Eosinophils % (0 - 5 %) 0.4 Basophils % (0.0 - 2.0 %) 0.6 Absolute Granulocytes (1.4 - 6.5 /CUMM) 5.6 Absolute Lymphocytes (1.2 - 3.4 /CUMM) 1.2 Absolute Monocytes (0.10 - 0.60 /CUMM) 0.8 H Absolute Eosinophils (0.0 - 0.7 /CUMM) 0 Absolute Basophils (0.0 - 0.2 /CUMM) 0 Diagnostic Data EKG Results 10/01/2017: Sinus rhythm, multiple APCs, PPC, LAFB, and LVH with repolarization abnormalities. No rhythm change when compared to previous tracing from 2017. CXR Results 10/01/2017: Scattered regions of mild, ill-defined opacity in the mid to lower lungs, overall increased from 08/14/2017. Appearance suggests an infectious/ inflammatory etiology, for which imaging follow-up is advised. Other Results V/Q scan 10/01/2017: Very low probability for pulmonary embolism. Dilatation of the cardiac silhouette and mediastinum are noted. CT chest: 08/16/2017: Mixed groundglass and nodular consolidation throughout both lungs most consistent with a multifocal pneumonia or inflammatory disease. Recommend a follow-up CT scan in 3 months to assess resolution of the nodular opacities as a true soft tissue nodule cannot be excluded based on the current appearance. Assessment/Plan Assessment/Plan [id number] w/ hx of obesity, HTN, HLD, DM, CKD, anemia, , carotid art dz, mod to severe concentric LVH, previously documented AF for which he was fully anticoagulated for a period of time, previous acute HFpEF, and recently dx'd groundglass and nodular consolidation throughout both lungs c/w and inflammatory process versus PNA who was advised ED evaluation after he called our office and reported worsening shortness of breath. The etiology for his shortness of breath may be on a cardiac, pulmonary basis or some combination of both, but he is clearly decompensated and requires hospitalization. He was seen at [facility] earlier today and received IV furosemide 60 mg 1 in addition to the by mouth furosemide 40 mg daily he has been taking. Recommendations: * Admit to telemetry, follow-up troponins, follow-up ECGs. * Strict inputs/outputs and daily weights. * Repeat chest CT. * Repeat echocardiogram. * If he appears to be in atrial fibrillation would start IV heparin, if no contraindication. * Repeat CXR in a.m., if he has a good diuresis. * Pulmonary consultation. * DVT prophylaxis. Further recommendations will follow, Thank you. Consult Acknowledgment - Thank you for your consult request.
--- NOTE | 2017-10-01 20:30 | History & Physical ---
Alina Monroy MD 10/01/172028: General Information and HPI MD Statement: I have seen and personally examined RANJAN TAPIA and documented this H&P. The patient is a 76 year old M who presented with a patient stated chief complaint of [shortness of breath]. Source of Information: patient, family, old records Exam Limitations: poor historian History of Present Illness: 76-year-old male with past medical history of hypertension, hyperlipidemia, obesity, diabetes mellitus, aortic stenosis, coronary artery disease, chronic kidney disease,BPH, atrial fibrillation, diastolic heart failure came to [facility] with complaints of shortness of breath. Patient was recently admitted in August for hyperkalemia. During the same admission his lisinopril and spironolactone was held. Patient was discharged on 09/05/2017. According to the patient he had shortness of breath since he was discharged from the hospital. His shortness of breath is present only on exertion. He gets short of breath with 1 flight of stairs. He also complains of nasal congestion and postnasal drip without any fever or cough or sore throat which keeps him awake during the night. He says he takes small naps during the day time. He endorses his shortness of breath has worsened since this weekend. Patient goes to wellness clinic once a week. He went today to his wellness clinic and got 60 mg of IV Lasix. He was sent to [facility] by Dr. Leary because of his shortness of breath for VQ scan and chest x-ray to rule out pulmonary embolism. Then he was sent to [facility] for chest CT. Patient eventually went home and was called by the ED physician for abnormal chest CT evaluation. He denies chest pain, chest pressure, orthopnea, palpitation, paroxysmal nocturnal dyspnea, abdominal pain, fever, chills, hematuria, melena. He denies any recent fall or abnormal sensation. He has history of constipation and is on laxative. He has bleeding per rectum on and off which he relates to his hemorrhoids. He is complaint with his medication and denies taking extra salt. Patient has history of atrial fibrillation, previously fully anticoagulated but now not on any anticoagulation [reason unknown]. During the last admission patient was advised to follow-up with his customer support consultant Dr. Bass as outpatient for his previous CAT scan showing lung nodules. Patient never followed up. Patient lives with his girlfriend. 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 At baseline he doesn't use walker or cane. He claims that he is pretty sedentary for the past few months. He follows to the Uday Leary MD as outpatient. Allergies/Medications Allergies: Coded Allergies: hydrocodone (NAUSEA 04/11/17) Home Med list Allopurinol 100 MG TABLET 1 TAB PO DAILY GOUT (Reported) Aspirin (Children's Aspirin) 81 MG TAB.CHEW 1 TAB PO DAILY HEART HEALTH ( Reported) Atorvastatin Calcium 40 MG TABLET 0.5 TAB PO DAILY CHOLESTEROL (Reported) Cinnamon Bark (Cinnamon) 500 MG CAPSULE 1 CAP PO DAILY SUPPLEMENT (Reported) Cyanocobalamin (Vitamin B-12) 1,000 MCG TABLET 1 TAB PO DAILY VITAMIN SUPPORT (Reported) Docusate Sodium (Colace) 100 MG CAPSULE 1 CAP PO BID PRN CONSTIPATION . Finasteride 5 MG TABLET 1 TAB PO QPM PROSTATE (Reported) Furosemide 20 MG TABLET 3 TAB PO DAILY WATER RETENTION (Reported) Gabapentin 100 MG CAPSULE 1 CAP PO TID NERVE PAIN (Reported) Hydralazine HCl 25 MG TABLET 1 TAB PO TID BP (Reported) Insulin Lispro (Humalog) 100 UNIT/ML VIAL DM (Reported) Insulin-Lantus (Lantus) 100 UNIT/ML VIAL 28 UNITS SC QAM DM (Reported) Insulin-Lantus (Lantus) 100 UNIT/ML VIAL 33 UNITS SC QPM DM (Reported) Lactobacillus Acidophilus (Probiotic) 10 BILLION CELL CAPSULE 1 CAP PO DAILY GI (Reported) Magnesium Hydroxide (Milk Of Magnesia) 400 MG/5 ML ORAL.SUSP 5 ML PO DAILY NEEDED PRN CONSTIPATION . Metoprolol Tartrate 25 MG TABLET 0.5 TAB PO DAILY HEART/BP (Reported) Minoxidil 2.5 MG TABLET 2 TAB PO BID BP (Reported) Compliance With Home Meds: GOOD Past History Travel History Traveled to [place] past 21 day No Medical History Neurological: NONE EENT: NONE Cardiovascular: AFIB, CHF, hypertension Respiratory: NONE Gastrointestinal: NONE Hepatic: NONE Renal: "LOW FUNCTIONING KIDNEYS" Musculoskeletal: NONE Psychiatric: NONE Endocrine: diabetes Blood Disorders: NONE Cancer(s): NONE PRODUCTION DIRECTOR/Reproductive: NONE History of MRSA: No History of VRE: No History of CDIFF: No Surgical History Surgical History: BACK SURGERIES RIGHT TKR ECHO Results (as available) EF% 55 Past Family/Social History Family History Relations & Conditions if any MOTHER (CAD, multiple familes on mother sides had heart attack before 60). Psychosocial History Where do you live? Home Who Do You Live With? girlfriend Services at Home: None Primary Language: Lao Smoking Status: Never Smoked ETOH Use: denies use Illicit Drug Use: denies illicit drug use Functional Ability ADLs Independent: dressing, eating, toileting, bathing. Ambulation: independent IADLs Independent: shopping, housework, finances, food prep, telephone, transportation , medication admin. Review of Systems Review of Systems Constitutional: Reports: no symptoms. EENTM: Reports: nasal congestion (post nasal drip). Respiratory: Reports: short of breath. GI: Reports: no symptoms. Genitourinary: Reports: no symptoms. Musculoskeletal: Reports: no symptoms. Skin: Reports: no symptoms. Exam & Diagnostic Data Last 24 Hrs of Vital Signs/I&O Vital Signs Date Time Temp Pulse Resp B/P B/P Pulse O2 O2 Flow FiO2 Mean Ox Delivery Rate 10/02 0008 138/70 10/019 96 Nasal 3.0L Cannula 10/01 2236 99.0 78 20 140/70 95 10/01 2138 98.6 71 18 141/67 96 Nasal 3.0L Cannula 10/01 2004 68 22 114/56 98 Nasal 3.0L Cannula 10/01 1808 98.5 73 22 136/62 100 Nasal 3.0L Cannula 10/01 1535 97 Nasal 3.0L Cannula 10/01 1534 98.0 75 22 151/66 96 Nasal Cannula 10/01 1439 98.1 98 26 166/89 96 Nasal 3.0L Cannula Intake & Output 10/02 0800 10/02 0000 10/01 1600 Intake Total 0 Output Total Balance 0 Intake, Oral 0 Patient 193 lb 196 lb Weight Weight Chair scale Reported by Patient Measurement Method Physical Exam General Appearance Alert, Oriented X3, Cooperative, No Acute Distress Skin No Rashes, No Breakdown HEENT Atraumatic, PERRLA, Mucous Membr. moist/pink Neck Supple, No JVD, No thryomegaly Cardiovascular Regular Rate, Normal S1, Normal S2 Lungs Clear to Auscultation, Normal Air Movement Abdomen Soft, No Tenderness, No Hepatospenomegaly Neurological Normal Speech, Strength at 5/5 X4 Ext, Normal Tone, Sensation Intact Extremities No Cyanosis, No Edema, Normal Pulses Diagnostic Data EKG Results 10/01/2017: Sinus rhythm, multiple APCs, PPC, LAFB, and LVH with repolarization abnormalities. No rhythm change when compared to previous tracing from 09/05/2017. CXR Results 10/01/2017: Scattered regions of mild, ill-defined opacity in the mid to lower lungs, overall increased from 08/14/2017. Appearance suggests an infectious/inflammatory etiology, for which imaging follow-up is advised. Other Results V/Q scan 10/01/2017: Very low probability for pulmonary embolism. Dilatation of the cardiac silhouette and mediastinum are noted. CT chest: 08/16/2017: Mixed groundglass and nodular consolidation throughout both lungs most consistent with a multifocal pneumonia or inflammatory disease. Recommend a follow-up CT scan in 3 months to assess resolution of the nodular opacities as a true soft tissue nodule cannot be excluded based on the current appearance. Assessment/Plan Assessment: 76-year-old male with past medical history of hypertension, hyperlipidemia, obesity, diabetes mellitus, aortic stenosis, coronary artery disease, chronic kidney disease, atrial fibrillation, diastolic heart failure came to [facility] with complaints of shortness of breath. Admission vitals Temperature 98.5, pulse rate 73, respiratory rate 22, blood pressure 136/62, saturation 100 on 3 L of nasal oxygen. Admission labs W7.6, hemoglobin 10.8, platelet 179, sodium 144, potassium 4.3, when necessary 40, creatinine 2,, troponin 0.20, proBNP 4210. Imaging Chest x-ray Scattered regions of mild, ill-defined opacity in the mid to lower lungs, overall increased from 08/14/2017. Appearance suggests an infectious/inflammatory etiology, for which imaging follow-up is advised. VQ scan Very low probability of pulmonary embolism. Dilatation of the cardiac silhouette and mediastinum are noted. Echocardiogram-April 2070 Normal left ventricular ejection fraction visually estimated at 55%. "pseudonormal" filling pattern of the left ventricle for age (stage [address] chest August 2017 Mixed groundglass and nodular consolidation throughout both lungs most consistent with a multifocal pneumonia or inflammatory disease. Recommend a follow-up CT scan in 3 months to assess resolution of the nodular opacities as a true soft tissue nodule cannot be excluded based on the current appearance. Chest CT 10/01/2017 There are multiple ill-defined foci of airspace disease involving both lungs. These findings are most consistent with pneumonia. ED treatment none Assessment and plan 1. Shortness of breath-patient's shortness of breath can be secondary due to acute on chronic CHF/pneumonia. Clinically there is no evidence of heart failure. We will treat him for pneumonia with IV ceftriaxone and azithromycin. Patient has a positive troponin which can be secondary due to demand ischemia. We will trend troponins and EKG. Patient is on by mouth Lasix 60 mg. We will continue IV Lasix 60 for now. Patient was seen by cash manager who suggested echocardiogram and repeat chest x-ray in the morning. Cardiology follow-up appreciated. Patient has been advised to follow-up with the customer support consultant Dr. Lacey for his CAT scan finding of pulmonary nodules and nodular consolidation bilaterally. We will place a pulmonology consult in a.m. Strict I's and O's and daily weight. 2. EKG changes-EKG shows? A. fib. His CHADSVASC score iS 5. patient was on anticoagulation for atrial fibrillation in the past and this was discontinued [ reason unknown]. pt HAS - BLED score is 4 with a risk of 8.9% for major bleeding. We will start him on IV heparin. Cardiology follow-up appreciated. 3. Chronic medical condition-continue finasteride for BPH, hydralazine and metoprolol for hypertension, gabapentin, allopurinol for gout, Levemir and NovoLog sliding scale for diabetes. Code-full code Diet-consistent carbohydrate diet DVT prophylaxis-patient is on IV heparin. As Ranked By This Provider Problem List: 1. Elevated troponin 2. Pneumonia Core Measures/Misc (04/22) Acute Coronary Syndrome ACS Diagnosis: No Congestive Heart Failure Congestive Heart Failure Diagnosis No Cerebrovascular Accident CVA/TIA Diagnosis: No VTE (View Protocol) VTE Risk Factors Age>40 No Mechanical VTE Prophylaxis d/t Other No VTE Pharm Prophylaxis d/t Other Sepsis (View protocol) Sepsis Present: No Oksana,Stefani 10/01/172045: Resident Review Statement Resident Statement: examined this patient, discussed with industrial engineering intern, agreed with industrial engineering intern, discussed with family, reviewed EMR data (avail), discussed with nursing , discussed with case mgmt, reviewed images, amended to note Other Findings: 76-year-old male with a history of obesity, hypertension, dyslipidemia , diabetes mellitus, chronic kidney disease, anemia, aortic stenosis, carotid artery disease, moderate to severe concentric left ventricular hypertrophy, previously documented atrial fibrillationnot on AC at this time ? guaic positive stools, and previous acute diastolic heart failure who was advised ED evaluation after he called his cash manager's office and reported worsening shortness of breath. Patient was recently discharged from [facility] earlier in September this year. He states that when he went home he had an doing well and having worsening shortness of breath on exertion and pointed to get alcohol. Of even walked out of bed to get to the bathroom. He states that the shortness of breath has been going on for the past 6-[address] Duval as an outpatient and had a CAT scan done that showed questionable pneumonia. Of note he was also following up in the CHF clinic where he gets diuresed with Lasix on a weekly basis. He states that [facility] and received 60 mg of IV Lasix. He subsequently went to ibuprofen for imaging after which he was advised to come to the ER for further evaluation. He said he ended up getting a CAT scan in the ER and was sent home. He states that after he was sent home. He received a call from Dr. Leary's office asking him to calm to the ED for further evaluation of his shortness of breath. denies any chest pain, palpitations, nausea, vomiting, diarrhea, fevers, chills, does endorse worsening swelling of his feet endorses orthopnea however denies PND. He states that he doesn't really sleep at baseline and usually has to sleep in a recliner in the morning. He also endorses postnasal dripping. He states that he does drink a lot of fluid however denies any additional salt intake. No hx of recent travel. Vitals and admission blood pressure 166/89, respiratory of 26, pulse 98, afebrile saturating 96% years of oxygen via nasal cannula per On physical exam he is alert, oriented 3 and in no acute distress sitting comfortably in bed. HEENT revealed PERRLA, moist mucous membranes. Examination of the neck JVD~6cm? Cardiovascular exam pertinent for normal S1 2, grade 3 x 6 holosystolic murmur heard best at right sternal border, chest clear to auscultation bilaterally. Abdominal exam was pertinent for a ventral hernia with abdomen soft, nontender, nondistended with normal bowel sounds in all 4 quadrants. Examination of the lower extremities revealed 1+ trace edema bilaterally in the lower extremities. Neuro exam was grossly unremarkable. Labs pertinent for normal white blood cell count of 7600, H&H of 10.8/32.8 and platelet count of 1 79,000. Chemistries revealed a sodium of 144, potassium of 4.3, bicarbonate 25, anion gap of 15, BUN 40 with a creatinine of 2.0. Glucose elevated to 188. Lactic acid 2.0 index at 1.1. Serum calcium elevated at 10.4. LFTs unremarkable and AST/ALT of 24/34, alkaline phosphatase of 69, first of troponins are 0.20 and a proBNP of 4210. Chest x-ray revealed scattered regions of mild, ill-defined opacity in the mid to lower lungs, overall increased from 08/14/2017. Appearance suggests an infectious/inflammatory etiology. VQ scan showed very low probability of pulmonary embolism. Dilatation of the cardiac silhouette and mediastinum are noted. The chest without IV contrast showed multiple ill-defined foci of airspace disease involving both lungs. These findings are most consistent with pneumonia. EKG revealed HR of 66, A. fib, left anterior fascicular block (which was old) T- wave inversions and ST-T changes in V4 to V6 related to left ventricular hypertrophy, poor R-wave progression. Assessment and plan Admit patient to telemetry for dyspnea on exertion most likely multifactorial secondary to pneumonia versus acute on chronic diastolic CHF exacerbation 2/2 being in Afib. . #HEIN - Multifactorial 2/2 PNA vs CHF (does not seem volume overloadedon exam) vs being in Afib. - Start on IV ceftriaxone and Azithromycin for CAP. - Check urinary antigen for legionella and strep pneumo - R/O ACS with trop and ECG @ 9:00pm and 3:00am. - Continue diuresis with IV Lasix 60mg daily. - Strict I's and O's - F/U repeat CXR in AM - Appreciate Cardio recs. - Pulm consult in AM with Dr. Carcamo. #Hx of Afib - Currently in Afib. - Givenhis high CHADSVASC, and the fact he was guaic negative in ER, will start onHeparin drip. - Switch to DOACS in AM? as per Cardio recs - Of note, one of his ECG shows NSR - ? PAF. Defer to Cradiology regarding AC #HTN Continue Meoprolol, Hydralazine #BPH Continue on Finasteride. #Daibetic neuropathy - COntinue on gabapentin. #Gout - Continue on Allopurinol #DM - Continue on Levemir 28 units in AM and 33 un its at bedtime and Novolog sliding scale. - Accuchecks TIDHS/AC - Diet - Diabetic with 2gm Na and 1500mls water restriction - DVT prophylaxis - IV Heparin - Code Status - Full Code Tim GONSALES, [facility] 10/02/17 0249: Attending MD Review Statement Attending Statement Attending MD Statement: examined this patient, discuss w/resident/PA/COATING AND EMBOSSING UNIT OPERATOR, agreed w/resident/PA/COATING AND EMBOSSING UNIT OPERATOR, reviewed images, amended to note Attending Assessment/Plan: 76 yo M with h/o chronic diastolic heart failure, CKD stage 3, HTN, DM, anemia, , paroxysmal Afib not on AC, is sent in by Dr. Leary for worsening exertional dyspnea. He was last admitted Aug 2017 for hyperkalemia. Since discharge he reports exertional dyspnea. He follows at the [facility] wellness clinic and gets IV lasix once a week. He was at the CHF clinic today, and was referred for outpatient CXR/ VQ scan from there. CXR was suggestive of scattered regions of mild, ill-defined opacity in [id number] lungs, while VQ scan was low probability for PE. Given his dyspnea and CXR findings Dr. Leary advised him to come to ER for further evaluation. Patient c/o congestion, post nasal drip but denies cough or phlegm. Reports b/l worsening pedal edema and orthopnea. Please note patient had a CT chest (Aug 16, 2017) per Dr. Carcamo which showed groundglass and nodular consolidation consistent with multifocal pneumonia, but patient never followed up with him. Vitals stable except for sats 88% RA --> 96% on 3L. Exam: JVD++, Chest basilar crepts, LE: 1+ edema. Labs: BUN 40, creat 2.0 (baseline 1.8 2.2), lactic acid 2.0, calcium 10.4, trop 0.20 --> 0.22, proBNP 4210. EKG: sinus rhythm with multiple PAC's, LAFB. Repeat EKG appears Afib (difficult to discern P waves) with ST-T changes. CT chest: multiple ill-defined foci of airspace disease involving both lungs, consistent with pneumonia. Small bilateral pleural effusions+. Echo (2017): EF 55%, stage 2 diastolic dysfunction, moderate concentric LVH, moderate aortic stenosis. Assessment and plan: 1. Acute hypoxic respiratory failure 2. Multifocal airspace disease, community acquired pneumonia 3. Acute on chronic diastolic heart failure 4. Elevated troponin, type 2 AK 5. Paroxysmal Afib, rate controlled - Admit to Telemetry - Monitor for arrhythmias - Daily weight's, strict I/Os - IV lasix 60 daily - Serial EKG and trend troponin - Obtain echo - Cardio consulted (Dr. Leary) - Panculture - IV ceftriaxone and azithromycin - Pulm consult (Dr. Carcamo) - It is difficult to discern 'p' waves and it is possible that patient is going into paroxysms of Afib, will anticoagulate with IV heparin. Please discuss with Cardiology in AM. - Check TSH, free T4, A1C. - Continue metoprolol, aspirin and statin. - Diabetes management DVT ppx IV heparin. Full code.
--- NOTE | 2017-10-01 20:46 | CT SCAN REPORT ---
EXAMINATION: CT CHEST WITHOUT CONTRAST CLINICAL INFORMATION: Shortness of breath. Evaluate for pneumonia versus CHF. Opacity on chest radiograph. COMPARISON: Chest radiograph 10/01/2017. TECHNIQUE: Multidetector volumetric CT imaging of the chest was done. Axial MIP volume rendering provided. Sagittal and coronal reformatted images were obtained. DLP: 460.88 mGy-cm FINDINGS: There are multiple ill-defined foci of airspace disease involving both lungs. These findings most likely represent a manifestation of pneumonia. Small bilateral pleural effusions layering posteriorly. No pneumothorax. The trachea and major airways are patent. The chest wall is grossly intact. This was portions of the thoracic outlet including the thyroid gland are normal. Limited visualization of the upper abdomen reveals no abnormal finding. IMPRESSION: There are multiple ill-defined foci of airspace disease involving both lungs. These findings are most consistent with pneumonia.
[2017-10-01 22:37] VITALS: BP 140/70
--- NOTE | 2017-10-02 00:02 | Admission Certification ---
Admission Certification Certification Statement - As attending physician, I certify that at the time of - admission, based on clinical presentation, severity of - symptoms, need for further diagnostic testing and - therapeutic interventions, and risk of adverse outcomes - without in-hospital treatment, in my clinical assessment, - this patient requires an acute hospital stay for a minimum - of two nights or longer. I have also considered psychsocial - factors such as support system, advanced age, financial - issues, cognitive issues, and failed out-patient treatments, - past re-admission history, safety of patient, and lack of - compliance as applicable. Specific rationale supporting this admission is: Acute on chronic congestive heart failure with bilateral pneumonia.
[2017-10-02 07:08] VITALS: BP 132/74
--- NOTE | 2017-10-02 07:38 | PN- Housestaff ---
See Addendum Subjective Follow-up For: CAP AFIB Tele-Events Since Last Visit: NS, First degree AVB HR 58-77 Subjective: No complaints or acute events overnight. Review of Systems Constitutional: Reports: see HPI. Objective Last 24 Hrs of Vital Signs/I&O Vital Signs Date Time Temp Pulse Resp B/P B/P Pulse O2 O2 Flow FiO2 Mean Ox Delivery Rate 10/02 0708 98.6 84 20 132/74 95 Nasal Cannula 10/02 0008 138/70 10/019 96 Nasal 3.0L Cannula 10/01 2236 99.0 78 20 140/70 95 10/01 2138 98.6 71 18 141/67 96 Nasal 3.0L Cannula 10/01 2005 68 22 114/56 98 Nasal 3.0L Cannula 10/01 1808 98.5 73 22 136/62 100 Nasal 3.0L Cannula 10/01 1535 97 Nasal 3.0L Cannula 10/01 1534 98.0 75 22 151/66 96 Nasal Cannula 10/01 1439 98.1 98 26 166/89 96 Nasal 3.0L Cannula Intake & Output 10/02 0800 10/02 0000 10/01 1600 Intake Total 656 200 0 Output Total Balance 656 200 0 Intake, IV 656 Intake, Oral 200 0 Patient 194 lb 193 lb 196 lb Weight Weight Bed scale Chair scale Reported by Patient Measurement Method Physical Exam General Appearance: Alert, Oriented X3, Cooperative, No Acute Distress, 3LNC Cardiovascular: 1/ diastolic murmur Lungs: Clear to Auscultation, Normal Air Movement Abdomen: Normal Bowel Sounds, Soft, No Tenderness Extremities: No Edema Current Medications: Current Medications Sig/Leonila Start time Last Medication Dose Route Stop Time Status Admin Allopurinol 100 MG DAILY 10/02 1000 AC PO Aspirin 81 MG DAILY 10/02 1000 AC PO Atorvastatin Calcium 20 MG 1700 10/02 1700 AC PO Azithromycin 500 MG Q24H 10/01 230 AC 10/02 Dextrose/Water 250 ML IV 000 Ceftriaxone Sodium 1,000 MG Q24H 10/02 2199 AC IV Ceftriaxone Sodium 0 .STK-MED ONE 10/01 2205 DC .ROUTE Ceftriaxone Sodium 1,000 MG DAILY 10/01 2143 DC 10/01 IV 2203 Docusate Sodium 100 MG BID PRN 10/01 2144 AC PO Finasteride 5 MG QPM 10/01 2199 AC 10/02 PO 0008 Furosemide 60 MG DAILY 10/02 1000 AC IV Gabapentin 100 MG TID 10/01 2199 AC 10/02 PO 0008 Heparin Sodium 25,000 UNIT Q24H 10/01 2214 AC 10/02 (Porcine) IV 0000 Sodium Chloride 500 ML Hydralazine HCl 25 MG TID 10/01 2199 AC 10/02 PO 0008 Insulin Aspart 0 TIDAC 10/02 0800 AC SC Insulin Detemir 28 UNITS DAILY 10/02 1000 AC SC Insulin Detemir 33 UNITS AT BEDTIME 10/01 2199 AC 10/02 SC 0009 Lactobacillus 1 CAP DAILY 10/02 1000 AC Acidophilus PO Metoprolol Tartrate 12.5 MG DAILY 10/02 1000 AC PO Minoxidil 5 MG BID 10/01 2199 AC 10/02 PO 0008 Zolpidem Tartrate 5 MG ONCE ONE 10/02 0015 DC 10/02 PO 10/02 0016 0019 Last 24 Hrs of Lab/Desean Results Last 24 Hrs of Labs/Mics: Laboratory Tests 10/02/17 0622: Sodium Pending, Potassium Pending, Chloride Pending, Carbon Dioxide Pending, Anion Gap Pending, BUN Pending, Creatinine Pending, BUN/Creatinine Ratio Pending , Hemoglobin A1c Pending, APTT Pending, CBC w Diff Pending, WBC Pending, RBC Pending, Hgb Pending, Hct Pending, MCV Pending, MCH Pending, MCHC Pending, RDW Pending, Plt Count Pending, MPV Pending 10/02/17 0305: Troponin I 0.19 *H 10/01/17 2101: Iron 36 L, TIBC 311, Ferritin 147.0, Troponin I 0.22 *H, TSH 0.910, Free T4 1.29, Ref Lab Test Result Pending 10/01/172036: D-Dimer High Sensitivty < 200 10/01/17 1739: Lactic Acid 1.1 10/01/17 1500: Anion Gap 15, Estimated GFR 32 L, BUN/Creatinine Ratio 20.0, Glucose 188 H, Lactic Acid 2.0, Calcium 10.4 H, Total Bilirubin 1.0, AST 24, ALT 38, Alkaline Phosphatase 69, Troponin I 0.20 *H, Zcu-Y-Lxkjluvrmby Pept 4210 H, Total Protein 7.0, Albumin 4.4, Globulin 2.6, Albumin/Globulin Ratio 1.7, CBC w Diff NO MAN DIFF REQ, RBC 4.05 L, MCV 81.1, MCH 26.7 L, MCHC 33.0, RDW 15.5 H, MPV 7.5, Gran % 73.2, Lymphocytes % 15.2 L, Monocytes % 10.6 H, Eosinophils % 0.4, Basophils % 0.6, Absolute Granulocytes 5.6, Absolute Lymphocytes 1.2, Absolute Monocytes 0.8 H, Absolute Eosinophils 0, Absolute Basophils 0 Microbiology 10/01 2129 URINE ROUT: Legionella Antigen - COLB 10/01 2129 URINE ROUT: Streptococcus pneumoniae Antigen (M - COLB 10/01 1700 NASOPHARYN: Influenza Virus A & B Rapid Smear - COMP 10/01 1525 BLOOD: Blood Culture - RECD 10/01 1500 BLOOD: Blood Culture - RECD Assessment/Plan Assessment: Mr. Jameson is a 76-year-old male with a history of obesity, hypertension, dyslipidemia, diabetes mellitus, chronic kidney disease, anemia, aortic stenosis, carotid artery disease, moderate to severe concentric left ventricular hypertrophy, previously documented atrial fibrillation not on AC, acute diastolic heart failure who was advised ED for worsening shortness of breath. Problem list: Afib Acute hypoxic respiratory failure CAP Acute on chronic diastolic heart failure Type II NH Hypokalemia Plan: * TRC/nebs PRN * Oxygen supplementation PRN, goal O2 sat > 92% * Continue IV heparin * Start IV heparin bolus as per PTT protocol * continue IV Lasix * Continue IV ceftriaxone, azithromycin * Continue metoprolol, aspirin, atorvastatin, hydralazine, gabapentin, minoxidil * Accu-Cheks and NovoLog SS, continue Levemir * Monitor and replete potassium as needed * Cardiology recommendations appreciated * Pulmonology recommendations appreciated * Diet: Diabetic Problem List: 1. Elevated troponin 2. CAP (community acquired pneumonia) 3. Hypokalemia Pain Ratin Pain Location: NA Pain Goal: Remain pain free Pain Plan: NA Tomorrow's Labs & Rationales: BEP for potassium and renal function CBC for anemia PTT for heparin
[2017-10-02 08:23] LABS: PTT 47 SEC (25-37)
[2017-10-02 08:26] LABS: ABSOLUTE BASOPHIL COUNT 0.1 /CUMM (0.0-0.2); ABSOLUTE EOSINOPHIL COUNT 0 /CUMM (0.0-0.7); ABSOLUTE GRANULOCYTE CT 4.4 /CUMM (1.4-6.5); ABSOLUTE LYMPH COUNT 1.3 /CUMM (1.2-3.4); ABSOLUTE MONOCYTE COUNT 0.7 /CUMM (0.10-0.60); BASOPHIL % 0.8 % (0.0-2.0); EOSINOPHIL % 0.6 % (0-5); GRANULOCYTE % 68.2 % (42.2-75.2); HEMATOCRIT 29.3 % (42-52); MEAN CORPUSCULAR HGB 27.2 PG (27.0-31.0); MEAN CORPUSCULAR HGB CONC 33.8 G/DL (33.0-37.0); MEAN CORPUSCULAR VOLUME 80.4 FL (80.0-94.0); MEAN PLATELET VOLUME 7.6 FL (7.4-10.4); PLATELET COUNT 170 /CUMM (130-400); RBC DISTRIBUTION WIDTH 15.5 % (11.5-14.5); RED BLOOD CELL CT 3.65 /CUMM (4.70-6.10); WHITE BLOOD CELL COUNT 6.4 /CUMM (4.8-10.8)
[2017-10-02 09:48] VITALS: BP 108/60
--- NOTE | 2017-10-02 11:30 | Cons- Pulmonary ---
General Information and HPI Consulting Request Date of Consult: 10/02/17 Requested By: Dr. Chris Reason for Consult: dyspnea, pna Source of Information: patient Exam Limitations: no limitations History of Present Illness: 76 year old man. Consultation for abn ct, dyspnea. Hx of , CAD, CKD, a.fib, diastolic chf, presents with dyspnea. Worsened for 1 month. Recent admit for elevated potassium. Dc 09/05. HEIN [address]. some post nasal drip. Leg edema. 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 ECHO 04/2017 - stage 2 diastolic dysfunction, moderate . CT multiple foci of airspace disease. No leukocytosis, No fevers. No n/v/d/c. Allergies/Medications Allergies: Coded Allergies: hydrocodone (NAUSEA 04/11/17) Home Med List: Allopurinol 100 MG TABLET 1 TAB PO DAILY GOUT (Reported) Aspirin (Children's Aspirin) 81 MG TAB.CHEW 1 TAB PO DAILY HEART HEALTH ( Reported) Atorvastatin Calcium 40 MG TABLET 0.5 TAB PO DAILY CHOLESTEROL (Reported) Cinnamon Bark (Cinnamon) 500 MG CAPSULE 1 CAP PO DAILY SUPPLEMENT (Reported) Cyanocobalamin (Vitamin B-12) 1,000 MCG TABLET 1 TAB PO DAILY VITAMIN SUPPORT (Reported) Docusate Sodium (Colace) 100 MG CAPSULE 1 CAP PO BID PRN CONSTIPATION . Finasteride 5 MG TABLET 1 TAB PO QPM PROSTATE (Reported) Furosemide 20 MG TABLET 3 TAB PO DAILY WATER RETENTION (Reported) Gabapentin 100 MG CAPSULE 1 CAP PO TID NERVE PAIN (Reported) Hydralazine HCl 25 MG TABLET 1 TAB PO TID BP (Reported) Insulin Lispro (Humalog) 100 UNIT/ML VIAL DM (Reported) Insulin-Lantus (Lantus) 100 UNIT/ML VIAL 28 UNITS SC QAM DM (Reported) Insulin-Lantus (Lantus) 100 UNIT/ML VIAL 33 UNITS SC QPM DM (Reported) Lactobacillus Acidophilus (Probiotic) 10 BILLION CELL CAPSULE 1 CAP PO DAILY GI (Reported) Magnesium Hydroxide (Milk Of Magnesia) 400 MG/5 ML ORAL.SUSP 5 ML PO DAILY NEEDED PRN CONSTIPATION . Metoprolol Tartrate 25 MG TABLET 0.5 TAB PO DAILY HEART/BP (Reported) Minoxidil 2.5 MG TABLET 2 TAB PO BID BP (Reported) Current Medications: Current Medications Sig/Leonila Start time Last Medication Dose Route Stop Time Status Admin Allopurinol 100 MG DAILY 10/02 1000 AC PO Aspirin 81 MG DAILY 10/02 1000 AC PO Atorvastatin Calcium 20 MG 1700 10/02 1700 AC PO Azithromycin 500 MG Q24H 10/01 2300 AC 10/02 Dextrose/Water 250 ML IV 0009 Ceftriaxone Sodium 1,000 MG Q24H 10/02 2200 AC IV Ceftriaxone Sodium 0 .STK-MED ONE 10/016 DC .ROUTE Ceftriaxone Sodium 1,000 MG DAILY 10/01 2144 DC 10/01 IV 2204 Docusate Sodium 100 MG BID PRN 10/01 2145 AC PO Finasteride 5 MG QPM 10/01 2200 AC 10/02 PO 0008 Furosemide 60 MG DAILY 10/02 1000 AC IV Gabapentin 100 MG TID 10/01 2200 AC 10/02 PO 0008 Heparin Sodium 3,520 UNIT ONCE ONE 10/02 0945 DC 10/02 (Porcine) IV 10/02 0946 0947 Heparin Sodium 25,000 UNIT Q24H 10/01 2215 AC 10/02 (Porcine) IV 0000 Sodium Chloride 500 ML Hydralazine HCl 25 MG TID 10/01 2200 AC 10/02 PO 0008 Insulin Aspart 0 TIDAC 10/02 0800 AC SC Insulin Detemir 28 UNITS DAILY 10/02 1000 AC SC Insulin Detemir 33 UNITS AT BEDTIME 10/01 2200 AC 10/02 SC 0009 Lactobacillus 1 CAP DAILY 10/02 1000 AC Acidophilus PO Metoprolol Tartrate 12.5 MG DAILY 10/02 1000 AC PO Minoxidil 5 MG BID 10/01 2200 AC 10/02 PO 0008 Zolpidem Tartrate 5 MG ONCE ONE 10/02 0015 DC 10/02 PO 10/02 0016 0019 Review of Systems Comments 18 point review of systems was performed and reviewed. Please see pertinent positives and pertinent negatives in the HPI. Otherwise ROS is negative. 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 Psychosocial History Where Do You Live? Home Who Do You Live With? girlfriend Services at Home: None Primary Language: Slovak Smoking Status: Never Smoked ETOH Use: denies use Illicit Drug Use: denies illicit drug use Functional Ability ADLs Independent: dressing, eating, toileting, bathing. Ambulation: independent IADLs Independent: shopping, housework, finances, food prep, telephone, transportation , medication admin. ECHO Results (as available) EF% 55 Exam & Diagnostic Data Last 24 Hrs of Vital Signs/I&O Vital Signs Date Time Temp Pulse Resp B/P B/P Pulse O2 O2 Flow FiO2 Mean Ox Delivery Rate 10/02 0948 64 108/60 10/02 0800 Nasal 3.0L Cannula 10/02 0708 98.6 84 20 132/74 95 Nasal Cannula 10/02 0008 138/70 10/01 2239 96 Nasal 3.0L Cannula 10/01 2237 99.0 78 20 140/70 95 10/01 2138 98.6 71 18 141/67 96 Nasal 3.0L Cannula 10/01 2005 68 22 114/56 98 Nasal 3.0L Cannula 10/01 1808 98.5 73 22 136/62 100 Nasal 3.0L Cannula 10/01 1535 97 Nasal 3.0L Cannula 10/01 1534 98.0 75 22 151/66 96 Nasal Cannula 10/01 1439 98.1 98 26 166/89 96 Nasal 3.0L Cannula Intake & Output 10/02 1600 10/02 0800 10/02 0000 Intake Total 656 200 Output Total Balance 656 200 Intake, IV 656 Intake, Oral 200 Patient 194 lb 193 lb Weight Weight Bed scale Chair scale Measurement Method Physical Exam Other Physical Findings: Generally - Awake, alert and comfortable without distress Head and neck - normocephalic, atraumatic, EOMI grossly intact Cardiovascular - S1, S2, Lungs - rhonchi more pronounced on left Abdomen - Bowel sounds positive, soft, non-tender Extremities - b/l edema Last 48 Hrs of Labs/Deesan: Laboratory Tests 10/02/17 0622: Anion Gap 14, Estimated GFR 37 L, BUN/Creatinine Ratio 20.0, Hemoglobin A1c Pending, Magnesium Pending, APTT 47 H, CBC w Diff NO MAN DIFF REQ, RBC 3.65 L, MCV 80.4, MCH 27.2, MCHC 33.8, RDW 15.5 H, MPV 7.6, Gran % 68.2, Lymphocytes % 19.5 L, Monocytes % 10.9 H, Eosinophils % 0.6, Basophils % 0.8, Absolute Granulocytes 4.4, Absolute Lymphocytes 1.3, Absolute Monocytes 0.7 H, Absolute Eosinophils 0, Absolute Basophils 0.1 10/02/17 0305: Troponin I 0.19 *H 10/01/17 2101: Iron 36 L, TIBC 311, Ferritin 147.0, Troponin I 0.22 *H, TSH 0.910, Free T4 1.29, Ref Lab Test Result Pending 10/01/172036: D-Dimer High Sensitivty < 200 10/01/17 1739: Lactic Acid 1.1 10/01/17 1500: Anion Gap 15, Estimated GFR 32 L, BUN/Creatinine Ratio 20.0, Glucose 188 H, Lactic Acid 2.0, Calcium 10.4 H, Total Bilirubin 1.0, AST 24, ALT 38, Alkaline Phosphatase 69, Troponin I 0.20 *H, Yyt-L-Byfpxrmecai Pept 4210 H, Total Protein 7.0, Albumin 4.4, Globulin 2.6, Albumin/Globulin Ratio 1.7, CBC w Diff NO MAN DIFF REQ, RBC 4.05 L, MCV 81.1, MCH 26.7 L, MCHC 33.0, RDW 15.5 H, MPV 7.5, Gran % 73.2, Lymphocytes % 15.2 L, Monocytes % 10.6 H, Eosinophils % 0.4, Basophils % 0.6, Absolute Granulocytes 5.6, Absolute Lymphocytes 1.2, Absolute Monocytes 0.8 H, Absolute Eosinophils 0, Absolute Basophils 0 Microbiology 10/02 0755 URINE ROUT: Legionella Antigen - COMP 10/02 0755 URINE ROUT: Streptococcus pneumoniae Antigen (M - COMP 10/01 1700 NASOPHARYN: Influenza Virus A & B Rapid Smear - COMP Assessment/Plan Impression/Plan: Impression 76 year old man. Consultation for abn ct, dyspnea. Hx of , CAD, CKD, a.fib, diastolic chf, presents with dyspnea. Worsened for 1 month. Recent admit for elevated potassium. Dc 09/05. HEIN [address]. some post nasal drip. Leg edema. 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 ECHO 04/2017 - stage 2 diastolic dysfunction, moderate . CT multiple foci of airspace disease. No leukocytosis, No fevers. No n/v/d/c. Differential diagnosis for his pulmonary presentation is broad including infectious, inflammatory or cardiac. Plan -f/u ECHO, cardiology, diuresis -ins/outs, daily weights -cont abx cef/zithro and f/u all cx -heparin gtt as well for a.fib -bronchoscopy at this point is premature, will continue to follow clinical course -TRC/Nebs DVT prophylaxis at all times Consult Acknowledgment - Thank you for your consult request.
--- NOTE | 2017-10-02 12:00 | RADIOLOGY REPORT ---
EXAMINATION: XR PORTABLE CHEST CLINICAL INFORMATION: Hypoxia. COMPARISON: 10/01/2017, x-ray and CT. TECHNIQUE: Portable frontal view of the chest was obtained. FINDINGS: The heart is at the upper limit of normal, stable. Monitoring leads project over the chest. Mediastinal silhouette is stable. There is a fullness of right lyndon, unchanged from previous. Multifocal ill-defined airspace opacities in the mid to lower lungs bilaterally are redemonstrated. No significant interval change. Possible small bilateral pleural effusions. No pneumothorax. IMPRESSION: No significant interval change. Persistent multifocal ill-defined airspace opacities in the mid to lower lungs bilaterally. Small bilateral pleural effusions.
[2017-10-02 14:31] VITALS: BP 120/70
[2017-10-02 16:16] LABS: PTT 76 SEC (25-37)
--- NOTE | 2017-10-02 18:12 | PN- Cardiology ---
Subjective Subjective: No specific complaints. Breathing acceptable at rest and a little better with exertion. Objective Vital Signs and I&Os Vital Signs Date Time Temp Pulse Resp B/P B/P Pulse O2 O2 Flow FiO2 Mean Ox Delivery Rate 10/02 1654 98.4 64 22 120/70 10/02 1600 Nasal 3.0L Cannula 10/02 1431 98.4 64 22 120/70 99 Nasal 3.0L Cannula 10/02 1203 72 120/70 10/02 0948 64 108/60 10/02 0800 Nasal 3.0L Cannula 10/02 0708 98.6 84 20 132/74 95 Nasal Cannula 10/02 0008 138/70 10/01 2239 96 Nasal 3.0L Cannula 10/01 2237 99.0 78 20 140/70 95 10/01 2138 98.6 71 18 141/67 96 Nasal 3.0L Cannula 10/01 2005 68 22 114/56 98 Nasal 3.0L Cannula Intake & Output 10/02 1600 10/02 0800 10/02 0000 10/01 1600 10/01 0800 10/01 0000 Intake Total 780 656 200 0 Output Total 350 400 Balance 430 256 200 0 Intake, IV 220 656 Intake, Oral 560 200 0 Output, Urine 350 400 Patient 194 lb 193 lb 196 lb Weight Weight Bed scale Chair scale Reported by Patient Measurement Method Physical Exam: Well-developed, overweight elderly male elderly male in no acute distress. Vital signs: See above. HEENT: Normocephalic, atraumatic, EOMI, moist mucous membranes. moist mucous membranes. Neck: No JVD, no bruits. Lungs: Decreased breath sounds bilaterally. Heart: S1, S2 with grade 2/6 systolic ejection type murmur best heard at the base. No murmur, gallop, or rub. Abdomen: Soft, nontender, positive bowel sounds. Extremities: No edema. Current Medications: Current Medications Sig/Leonila Start time Last Medication Dose Route Stop Time Status Admin Allopurinol 100 MG DAILY 10/02 1000 AC 10/02 PO 1204 Aspirin 81 MG DAILY 10/02 1000 AC 10/02 PO 1204 Atorvastatin Calcium 20 MG 1700 10/02 1700 AC 10/02 PO 1654 Azithromycin 500 MG Q24H 10/01 2300 AC 10/02 Dextrose/Water 250 ML IV 0009 Ceftriaxone Sodium 1,000 MG Q24H 10/02 2200 AC IV Ceftriaxone Sodium 0 .STK-MED ONE 10/01 220 DC .ROUTE Ceftriaxone Sodium 1,000 MG DAILY 10/01 2144 DC 10/01 IV 2204 Docusate Sodium 100 MG BID PRN 10/01 2145 AC PO Finasteride 5 MG QPM 10/01 2200 AC 10/02 PO 0008 Furosemide 60 MG DAILY 10/02 1000 AC 10/02 IV 1654 Gabapentin 100 MG TID 10/01 2200 AC 10/02 PO 1654 Heparin Sodium 3,520 UNIT ONCE ONE 10/02 0945 DC 10/02 (Porcine) IV 10/02 0946 0947 Heparin Sodium 5,000 UNIT .STK-MED ONE 10/02 0921 DC (Porcine) IV 10/02 0922 Heparin Sodium 25,000 UNIT Q24H 10/01 2214 AC 10/02 (Porcine) IV 0000 Sodium Chloride 500 ML Hydralazine HCl 25 MG TID 10/01 220 AC 10/02 PO 1654 Insulin Aspart 0 TIDAC 10/02 0800 AC 10/02 SC 1204 Insulin Detemir 28 UNITS DAILY 10/02 1000 AC 10/02 SC 1205 Insulin Detemir 33 UNITS AT BEDTIME 10/01 2199 10/02 SC 0009 Lactobacillus 1 CAP DAILY 10/02 1000 AC 10/02 Acidophilus PO 1204 Metoprolol Tartrate 12.5 MG DAILY 10/02 1000 AC 10/02 PO 1204 Minoxidil 5 MG BID 10/01 220 AC 10/02 PO 1204 Patient Medication 1 ED ONE ONE 10/02 1515 DC Teaching ED 10/02 1516 Potassium Chloride 20 MEQ ONCE ONE 10/02 1545 DC 10/02 PO 10/02 1546 1654 Zolpidem Tartrate 5 MG ONCE ONE 10/02 0015 DC 10/02 PO 10/02 0016 0019 Results Last 48 Hrs of Labs/Mics: Laboratory Tests 10/02/17 1548: APTT 76 H 10/02/17 0622: Anion Gap 14, Estimated GFR 37 L, BUN/Creatinine Ratio 20.0, Hemoglobin A1c 7.4 H, Magnesium 2.1, APTT 47 H, CBC w Diff NO MAN DIFF REQ, RBC 3.65 L, MCV 80.4 , MCH 27.2, MCHC 33.8, RDW 15.5 H, MPV 7.6, Gran % 68.2, Lymphocytes % 19.5 L, Monocytes % 10.9 H, Eosinophils % 0.6, Basophils % 0.8, Absolute Granulocytes 4.4, Absolute Lymphocytes 1.3, Absolute Monocytes 0.7 H, Absolute Eosinophils 0 , Absolute Basophils 0.1 10/02/17 0305: Troponin I 0.19 *H 10/01/17 2101: Iron 36 L, TIBC 311, Ferritin 147.0, Troponin I 0.22 *H, TSH 0.910, Free T4 1.29, Ref Lab Test Result Pending 10/01/172036: D-Dimer High Sensitivty < 200 10/01/17 1739: Lactic Acid 1.1 10/01/17 1500: Anion Gap 15, Estimated GFR 32 L, BUN/Creatinine Ratio 20.0, Glucose 188 H, Lactic Acid 2.0, Calcium 10.4 H, Total Bilirubin 1.0, AST 24, ALT 38, Alkaline Phosphatase 69, Troponin I 0.20 *H, Sxq-N-Soulzhttylf Pept 4210 H, Total Protein 7.0, Albumin 4.4, Globulin 2.6, Albumin/Globulin Ratio 1.7, CBC w Diff NO MAN DIFF REQ, RBC 4.05 L, MCV 81.1, MCH 26.7 L, MCHC 33.0, RDW 15.5 H, MPV 7.5, Gran % 73.2, Lymphocytes % 15.2 L, Monocytes % 10.6 H, Eosinophils % 0.4, Basophils % 0.6, Absolute Granulocytes 5.6, Absolute Lymphocytes 1.2, Absolute Monocytes 0.8 H, Absolute Eosinophils 0, Absolute Basophils 0 Microbiology 10/02 0755 URINE ROUT: Legionella Antigen - COMP 10/02 0755 URINE ROUT: Streptococcus pneumoniae Antigen (M - COMP 10/01 1700 NASOPHARYN: Influenza Virus A & B Rapid Smear - COMP Recent Imaging Studies: CXR 10/02/2017: No significant interval change. Persistent multifocal ill-defined airspace opacities in the mid to lower lungs bilaterally. Small bilateral pleural effusions. Chest CT 10/01/2017: There are multiple ill-defined foci of airspace disease involving both lungs. These findings are most consistent with pneumonia. Assessment/Plan Assessment/Plan [id number] w/ hx of obesity, HTN, HLD, DM, CKD, anemia, , carotid art dz, mod to severe concentric LVH, previously documented AF for which he was fully anticoagulated for a period of time, previous acute HFpEF, and recently dx'd groundglass and nodular consolidation throughout both lungs c/w and inflammatory process versus PNA who was advised ED evaluation after he called our office and reported worsening shortness of breath. The etiology for his shortness of breath may be on a cardiac, pulmonary basis or some combination of both, but he is not yet back to his baseline. [facility] on 10/01/2017 and received IV furosemide 60 mg 1 in addition to the by mouth furosemide 40 mg daily he has been taking. He has also had a complex heart rhythm at times wandering atrial pacemaker, Mobitz type I heart block, and junctional rhythm. Didn't see any convincing evidence of atrial fibrillation. As such, would discontinue IV heparin, but continue DVT prophylaxis. Naturally, should we document atrial fibrillation anticoagulation would be appropriate. Continue present medical regimen. Continue telemetry? Yes
[2017-10-02 22:28] VITALS: BP 116/72
[2017-10-03 04:44] LABS: ABSOLUTE BASOPHIL COUNT 0 /CUMM (0.0-0.2); ABSOLUTE EOSINOPHIL COUNT 0 /CUMM (0.0-0.7); ABSOLUTE GRANULOCYTE CT 5.7 /CUMM (1.4-6.5); ABSOLUTE LYMPH COUNT 1.4 /CUMM (1.2-3.4); ABSOLUTE MONOCYTE COUNT 0.8 /CUMM (0.10-0.60); BASOPHIL % 0.4 % (0.0-2.0); EOSINOPHIL % 0.5 % (0-5); GRANULOCYTE % 71.6 % (42.2-75.2); HEMATOCRIT 29.6 % (42-52); MEAN CORPUSCULAR HGB 26.8 PG (27.0-31.0); MEAN CORPUSCULAR VOLUME 81.1 FL (80.0-94.0); MEAN PLATELET VOLUME 7.2 FL (7.4-10.4); PLATELET COUNT 188 /CUMM (130-400); RBC DISTRIBUTION WIDTH 15.3 % (11.5-14.5); RED BLOOD CELL CT 3.65 /CUMM (4.70-6.10)
[2017-10-03 04:52] LABS: PTT 43 SEC (25-37)
[2017-10-03 07:20] VITALS: BP 132/62
--- NOTE | 2017-10-03 07:32 | PN- Housestaff ---
See Addendum Subjective Follow-up For: CAP Tele-Events Since Last Visit: SB, first-degree AV block HR 45-74 Subjective: No complaints. No acute events overnight. Patient anticipates to ambulate today Review of Systems Constitutional: Reports: see HPI. Objective Last 24 Hrs of Vital Signs/I&O Vital Signs Date Time Temp Pulse Resp B/P B/P Pulse O2 O2 Flow FiO2 Mean Ox Delivery Rate 10/03 0802 70 132/62 10/03 0802 70 132/62 10/03 0720 97.8 70 24 132/62 96 Nasal 4.0L Cannula 10/03 0000 Nasal 3.0L Cannula 10/02 2230 95 Nasal 3.0L Cannula 10/02 2228 98.4 65 20 116/72 65 10/02 2111 65 116/72 10/02 1654 98.4 64 22 120/70 10/02 1600 Nasal 3.0L Cannula 10/02 1431 98.4 64 22 120/70 99 Nasal 3.0L Cannula 10/02 1203 72 120/70 Intake & Output 10/03 1600 10/03 0800 10/03 0000 Intake Total 332.5 448.5 Output Total 300 1450 Balance 32.5 -1001.5 Intake, IV 212.5 88.5 Intake, Oral 120 360 Output, Urine 300 1450 Patient 197 lb Weight Weight Bed scale Measurement Method Physical Exam General Appearance: Alert, Oriented X3, Cooperative, No Acute Distress Cardiovascular: Regular Rate, Normal S1, Normal S2 Lungs: Clear to Auscultation, Normal Air Movement Abdomen: Normal Bowel Sounds, Soft, No Tenderness Extremities: No Edema Current Medications: Current Medications Sig/Leonila Start time Last Medication Dose Route Stop Time Status Admin Allopurinol 100 MG DAILY 10/02 1000 AC 10/03 PO 0803 Aspirin 81 MG DAILY 10/02 1000 10/03 PO 0802 Atorvastatin Calcium 20 MG 1700 10/02 1700 AC 10/02 PO 1654 Azithromycin 500 MG Q24H 10/01 2300 10/02 Dextrose/Water 250 ML IV 2250 Ceftriaxone Sodium 1,000 MG Q24H 10/020 AC 10/02 IV 211 Docusate Sodium 100 MG BID PRN 10/01 2145 AC PO Finasteride 5 MG QPM 10/01 PO 211 Furosemide 60 MG DAILY 10/02 1000 AC 10/03 IV 0803 Gabapentin 100 MG TID 10/01 2200 AC 10/03 PO 0802 Heparin Sodium 5,000 UNIT Q8 10/03 0749 AC 10/03 (Porcine) SC 0803 Heparin Sodium 6,705 UNIT ONCE ONE 10/03 0600 DC 10/03 (Porcine) IV 10/03 0601 0600 Heparin Sodium 25,000 UNIT Q24H 10/01 2215 DC 10/02 (Porcine) IV 1915 Sodium Chloride 500 ML Hydralazine HCl 25 MG TID 10/01 2200 AC 10/03 PO 0802 Insulin Aspart 0 TIDAC 10/02 0800 AC 10/02 GA 1204 Insulin Detemir 28 UNITS DAILY 10/02 1000 AC 10/03 SC 0803 Insulin Detemir 33 UNITS AT BEDTIME 10/01 220 AC 10/02 GA 2112 Lactobacillus 1 CAP DAILY 10/02 1000 AC 10/03 Acidophilus PO 0802 Metoprolol Tartrate 12.5 MG DAILY 10/02 1000 AC 10/03 PO 0802 Minoxidil 5 MG BID 10/01 2200 AC 10/03 PO 0802 Patient Medication 1 ED ONE ONE 10/02 1515 SC Teaching ED 10/02 1516 Potassium Chloride 40 MEQ ONCE ONE 10/03 0800 DC 10/03 PO 10/03 0801 0811 Potassium Chloride 20 MEQ ONCE ONE 10/02 1545 DC 10/02 PO 10/02 1546 1654 Last 24 Hrs of Lab/Desean Results Last 24 Hrs of Labs/Mics: Laboratory Tests 10/03/17 0422: Anion Gap 14, Estimated GFR 34 L, BUN/Creatinine Ratio 18.9, APTT 43 H, CBC w Diff NO MAN DIFF REQ, RBC 3.65 L, MCV 81.1, MCH 26.8 L, MCHC 33.0, RDW 15.3 H , MPV 7.2 L, Gran % 71.6, Lymphocytes % 17.6 L, Monocytes % 9.9 H, Eosinophils % 0.5, Basophils % 0.4, Absolute Granulocytes 5.7, Absolute Lymphocytes 1.4, Absolute Monocytes 0.8 H, Absolute Eosinophils 0, Absolute Basophils 0 10/02/17 1548: APTT 76 H Orders ECHO Findings: CONCLUSIONS Normal size left ventricle. Moderate concentric left ventricular hypertrophy. Normal left ventricular ejection fraction visually estimated at 55%. Restrictive filling pattern of the left ventricle for age (stage 3 diastolic dysfunction). Normal right ventricular size and function. Normal right atrial size. Mild left atrial dilatation. Trace mitral regurgitation. Moderate to severe aortic stenosis. Trace aortic regurgitation. Trace tricuspid regurgitation. Mild pulmonary hypertension. Dilated inferior vena cava Assessment/Plan Assessment: Mr. Jameson is a 76-year-old male with a history of obesity, hypertension, dyslipidemia, diabetes mellitus, chronic kidney disease, anemia, aortic stenosis, carotid artery disease, moderate to severe concentric left ventricular hypertrophy, previously documented atrial fibrillation not on AC, acute diastolic heart failure who was advised ED for worsening shortness of breath. Problem list: Acute hypoxic respiratory failure 2/2 CAP and Acute on chronic diastolic heart failure Type II [place] Hypokalemia RADHA Plan: * TRC/nebs PRN * Oxygen supplementation PRN, goal O2 sat > 92%. As per ED documentation patient had a O2 sat 88% * Ambulate with pulse oximetry monitoring, wean off oxygen if good respiratory effort * Incentive spirometry * discontinue IV heparin as per cardiology * continue IV Lasix * Continue IV ceftriaxone, azithromycin for total 7 days * Continue metoprolol, aspirin, atorvastatin, hydralazine, gabapentin, minoxidil * Accu-Cheks and NovoLog SS, continue Levemir * Monitor and replete potassium as needed * Monitor renal function * Stage 3 diastolic dysfunction with a restrictive filling pattern. EF > 55% * Cardiology recommendations appreciated * Pulmonology recommendations appreciated * Diet: Diabetic Problem List: 1. CAP (community acquired pneumonia) 2. Renal insufficiency 3. Elevated troponin 4. CHF exacerbation Pain Ratin Pain Location: NA Pain Goal: Remain pain free Pain Plan: NA Tomorrow's Labs & Rationales: BEP for potassium and renal function CBC for anemia
--- NOTE | 2017-10-03 10:29 | ECHOCARDIOGRAM REPORT ---
RANJAN TAPIA Age: 76 : 1940 Gender: M Exam Date: 10/02/2017 10:37 Exam Location: [address] Ht (in): 66 Wt (lb): 194 BSA: 2.05 BP: 132 / 74 Ordering Physician: Stefani Gandhi MD Referring Physician: Stefani Gandhi MD Technologist: Dejuan Alcaraz [facility] Room Number: 189-2 Indications: Shortness of breath Rhythm: Sinus Technical Quality: Fair FINDINGS Left Ventricle Normal size left ventricle. Moderate concentric left ventricular hypertrophy. No obvious regional wall motion abnormalities. Normal left ventricular ejection fraction visually estimated at 55%. Restrictive filling pattern of the left ventricle for age (stage 3 diastolic dysfunction). Right Ventricle Normal right ventricular size and function. Right Atrium Normal right atrial size. Left Atrium Mild left atrial dilatation. Mitral Valve Mild mitral annular calcification. Mitral valve mildly thickened. Trace mitral regurgitation. Aortic Valve Diffuse thickening of the aortic valve cusps with reduced excursion. Moderate to severe aortic stenosis. Trace aortic regurgitation. Tricuspid Valve Structurally normal tricuspid valve. Trace tricuspid regurgitation. Mild pulmonary hypertension. Right ventricular systolic pressure estimated to be elevated at 43 mmHg. Pulmonic Valve Pulmonic valve not well visualized, grossly normal. No pulmonic regurgitation. Pericardium No pericardial effusion. Great Vessels Normal size aortic root. Dilated inferior vena cava. CONCLUSIONS Normal size left ventricle. Moderate concentric left ventricular hypertrophy. Normal left ventricular ejection fraction visually estimated at 55%. Restrictive filling pattern of the left ventricle for age (stage 3 diastolic dysfunction). Normal right ventricular size and function. Normal right atrial size. Mild left atrial dilatation. Trace mitral regurgitation. Moderate to severe aortic stenosis. Trace aortic regurgitation. Trace tricuspid regurgitation. Mild pulmonary hypertension. Dilated inferior vena cava. Timothy Leary M.D. (Electronically Signed) Final Date: 03 October 2017 10:28 MEASUREMENTS (Male / Female) Normal Values 2D ECHO LV Diastolic Diameter PLAX 4.9 cm 4.2 - 5.9 / 3.9 - 5.3 cm LV Systolic Diameter PLAX 3.5 cm 2.1 - 4.0 cm LV Fractional Shortening PLAX 28.6 % 25 - 46 % LV Ejection Fraction 2D Teich 54.9 % IVS Diastolic Thickness 1.5 cm LVPW Diastolic Thickness 1.5 cm LV Relative Wall Thickness 0.6 RV Internal Dim ED PLAX 3.4 cm 1.9 - 3.8 cm LVOT Diameter 2.2 cm Aortic Root Diameter 3.3 cm LA Systolic Diameter LX 4.3 cm 3.0 - 4.0 / 2.7 - 3.8 cm Ascending Aorta Diameter 3.5 cm DOPPLER AV Peak Velocity 373.0 cm/s AV Peak Gradient 55.7 mmHg AV Mean Velocity 273.0 cm/s AV Mean Gradient 34.0 mmHg AV Velocity Time Integral 90.0 cm LVOT Peak Velocity 72.4 cm/s LVOT Peak Gradient 2.1 mmHg LVOT Mean Velocity 50.7 cm/s LVOT Mean Gradient 1.0 mmHg LVOT Velocity Time Integral 16.5 cm LVOT Stroke Volume 61.7 cm AV Area Cont Eq vti 0.7 cm AV Area Cont Eq pk 0.7 cm MV Peak Velocity 149.0 cm/s MV Peak Gradient 8.9 mmHg MV Mean Velocity 80.0 cm/s MV Mean Gradient 3.0 mmHg Mitral E Point Velocity 136.0 cm/s Mitral A Point Velocity 68.5 cm/s Mitral E to A Ratio 2.0 MV PHT Velocity 154.0 cm/s MV Deceleration Mcdonough 624.0 cm/s MV Pressure Half Time 74.0 ms MV Area PHT 3.0 cm MV Deceleration Time 211.0 ms TR Peak Velocity 287.0 cm/s TR Peak Gradient 32.9 mmHg Right Atrial Pressure 10.0 mmHg Pulmonary Artery Systolic Pressu 42.9 mmHg Right Ventricular Systolic Press 42.9 mmHg PV Peak Velocity 89.6 cm/s PV Peak Gradient 3.2 mmHg PV Mean Velocity 55.3 cm/s PV Mean Gradient 1.0 mmHg PV Velocity Time Integral 16.1 cm LV E' Lateral Velocity 6.1 cm/s Mitral E to LV E' Lateral Ratio 22.1 LV E' Septal Velocity 4.8 cm/s Mitral E to LV E' Septal Ratio 28.5
--- NOTE | 2017-10-03 11:44 | PN- Pulmonary ---
Subjective HPI/Critical Care Issues: Patient seen and examined this morning. He appears to be significantly doing better and his clinical examination has improved. Objective Current Medications: Current Medications Sig/Leonila Start time Last Medication Dose Route Stop Time Status Admin Allopurinol 100 MG DAILY 10/02 1000 AC 10/03 PO 0803 Aspirin 81 MG DAILY 10/02 1000 AC 10/03 PO 0802 Atorvastatin Calcium 20 MG 1700 10/02 1700 AC 10/02 PO 1654 Azithromycin 500 MG Q24H 10/01 2300 AC 10/02 Dextrose/Water 250 ML IV 2250 Ceftriaxone Sodium 1,000 MG Q24H 10/02 2200 AC 10/02 IV 2111 Docusate Sodium 100 MG BID PRN 10/01 2145 AC PO Finasteride 5 MG QPM 10/01 2200 AC 10/02 PO 2111 Furosemide 60 MG DAILY 10/02 1000 AC 10/03 IV 0803 Gabapentin 100 MG TID 10/01 2200 AC 10/03 PO 0802 Heparin Sodium 5,000 UNIT Q8 10/03 0749 10/03 (Porcine) SC 0803 Heparin Sodium 6,705 UNIT ONCE ONE 10/03 0600 DC 10/03 (Porcine) IV 10/03 0601 0600 Heparin Sodium 25,000 UNIT Q24H 10/01 2215 DC 10/02 (Porcine) IV 1915 Sodium Chloride 500 ML Hydralazine HCl 25 MG TID 10/01 2200 AC 10/03 PO 0802 Insulin Aspart 0 TIDAC 10/02 0800 AC 10/03 SC 1135 Insulin Detemir 28 UNITS DAILY 10/02 1000 10/03 SC 0803 Insulin Detemir 33 UNITS AT BEDTIME 10/01 2200 10/02 [place] 2112 Lactobacillus 1 CAP DAILY 10/02 1000 AC 10/03 Acidophilus PO 0802 Magnesium Hydroxide 30 ML ONE ONE 10/03 1145 AC 10/03 PO 10/03 1146 1135 Metoprolol Tartrate 12.5 MG DAILY 10/02 1000 AC 10/03 PO 0802 Minoxidil 5 MG BID 10/01 2200 AC 10/03 PO 0802 Patient Medication 1 ED ONE ONE 10/02 1515 DC Teaching ED 10/02 1516 Potassium Chloride 40 MEQ ONCE ONE 10/03 0800 DC 10/03 PO 10/03 0801 0811 Potassium Chloride 20 MEQ ONCE ONE 10/02 1545 DC 10/02 PO 10/02 1546 1654 Vital Signs & I&O Last 24 Hrs of Vitals and I&O: Vital Signs Date Time Temp Pulse Resp B/P B/P Pulse O2 O2 Flow FiO2 Mean Ox Delivery Rate 10/03 0802 70 132/62 10/03 0802 70 132/62 10/03 0720 97.8 70 24 132/62 96 Nasal 4.0L Cannula 10/03 0000 Nasal 3.0L Cannula 10/02 2230 95 Nasal 3.0L Cannula 10/02 2228 98.4 65 20 116/72 65 10/02 2111 65 116/72 10/02 1654 98.4 64 22 120/70 10/02 1600 Nasal 3.0L Cannula 10/02 1431 98.4 64 22 120/70 99 Nasal 3.0L Cannula 10/02 1203 72 120/70 Intake & Output 10/03 1600 10/03 0800 10/03 0000 Intake Total 332.5 448.5 Output Total 300 1450 Balance 32.5 -1001.5 Intake, IV 212.5 88.5 Intake, Oral 120 360 Output, Urine 300 1450 Patient 197 lb Weight Weight Bed scale Measurement Method Exam Other Physical Findings: Generally - Awake, alert and comfortable without distress Head and neck - normocephalic, atraumatic, EOMI grossly intact Cardiovascular - S1, S2, Lungs -improved rhonchi Abdomen - Bowel sounds positive, soft, non-tender Extremities - b/l edema Results Last 24 Hrs of Lab Results: Laboratory Tests 10/03/17 0422: Anion Gap 14, Estimated GFR 34 L, BUN/Creatinine Ratio 18.9, APTT 43 H, CBC w Diff NO MAN DIFF REQ, RBC 3.65 L, MCV 81.1, MCH 26.8 L, MCHC 33.0, RDW 15.3 H , MPV 7.2 L, Gran % 71.6, Lymphocytes % 17.6 L, Monocytes % 9.9 H, Eosinophils % 0.5, Basophils % 0.4, Absolute Granulocytes 5.7, Absolute Lymphocytes 1.4, Absolute Monocytes 0.8 H, Absolute Eosinophils 0, Absolute Basophils 0 10/02/17 1548: APTT 76 H Impression/Plan Impression/Plan Impression/Plan: Impression 76 year old man. Consultation for abn ct, dyspnea. Hx of , CAD, CKD, a.fib, diastolic chf, presents with dyspnea. ECHO 04/2017 - stage 2 diastolic dysfunction, moderate . CT multiple foci of airspace disease. No leukocytosis, No fevers. Differential diagnosis for his pulmonary presentation is broad including infectious, inflammatory or cardiac. Plan -f/u cardiology, diuresis, no stage 3 diastolic dysfunction -ins/outs, daily weights -cont abx cef/zithro and f/u all cx - 7 days -heparin gtt as well for anabel -bronchoscopy at this point is premature, will continue to follow clinical course -TRC/Nebs
[2017-10-03 14:35] VITALS: BP 106/60
[2017-10-03 22:19] VITALS: BP 110/70
[2017-10-04 07:11] VITALS: BP 112/62
--- NOTE | 2017-10-04 07:17 | PN- Housestaff ---
See Addendum Subjective Follow-up For: CAP Acute on chronic diastolic heart failure Type II [place] Hypokalemia RADHA Tele-Events Since Last Visit: SR, PVCs HR 40-77 Subjective: No complaints. No acute events overnight. Patient anticipates to go home today Review of Systems Constitutional: Reports: see HPI. Objective Last 24 Hrs of Vital Signs/I&O Vital Signs Date Time Temp Pulse Resp B/P B/P Pulse O2 O2 Flow FiO2 Mean Ox Delivery Rate 10/04 0801 69 112/62 10/04 0800 69 112/62 10/04 0711 98.5 69 22 112/62 99 Room Air 10/03 2219 98.6 73 22 110/70 93 10/03 2144 70 110/68 10/03 1653 77 144/66 10/03 1600 92 Room Air 10/03 1435 98.5 68 20 106/60 92 Room Air Intake & Output 10/04 1600 10/04 0800 10/04 0000 Intake Total 110 490 Output Total 200 Balance 110 290 Intake, IV 10 40 Intake, Oral 100 450 Output, Urine 200 Patient 199 lb Weight Weight Bed scale Measurement Method Physical Exam General Appearance: Alert, Oriented X3, Cooperative, No Acute Distress Cardiovascular: Regular Rate, Normal S1, Normal S2, No Murmurs Lungs: Clear to Auscultation, Normal Air Movement Abdomen: Normal Bowel Sounds, Soft, No Tenderness Extremities: No Edema Current Medications: Current Medications Sig/Leonila Start time Last Medication Dose Route Stop Time Status Admin Allopurinol 100 MG DAILY 10/02 1000 AC 10/04 PO 0801 Aspirin 81 MG DAILY 10/02 1000 AC 10/04 PO 0800 Atorvastatin Calcium 20 MG 1700 10/02 1700 AC 10/03 PO 1652 Azithromycin 500 MG Q24H 10/01 2300 AC 10/03 Dextrose/Water 250 ML IV 2206 Ceftriaxone Sodium 1,000 MG Q24H 10/02 2200 AC 10/03 IV 2143 Docusate Sodium 100 MG BID PRN 10/01 2145 AC PO Finasteride 5 MG QPM 10/010 AC 10/03 PO 2143 Furosemide 60 MG DAILY 10/04 1000 AC 10/04 PO 0800 Furosemide 60 MG DAILY 10/02 1000 DC 10/03 IV 0803 Gabapentin 100 MG TID 10/01 2200 AC 10/04 PO 0801 Heparin Sodium 5,000 UNIT Q8 10/03 0749 AC 10/04 (Porcine) [place] 0553 Hydralazine HCl 25 MG TID 10/01 2200 AC 10/04 PO 0800 Insulin Aspart 0 TIDAC 10/02 0800 AC 10/03 [place] 1135 Insulin Detemir 28 UNITS DAILY 10/02 1000 AC 10/04 [place] 0759 Insulin Detemir 33 UNITS AT BEDTIME 10/01 2200 AC 10/03 [place] 2143 Lactobacillus 1 CAP DAILY 10/02 1000 AC 10/04 Acidophilus PO 0801 Magnesium Hydroxide 30 ML ONE ONE 10/03 1145 DC 10/03 PO 10/03 1146 1135 Melatonin 5 MG ONCE ONE 10/03 1645 DC 10/03 PO 10/03 1646 2143 Metoprolol Tartrate 12.5 MG DAILY 10/02 1000 AC 10/04 PO 0801 Minoxidil 5 MG BID 10/01 2200 AC 10/04 PO 0801 Zolpidem Tartrate 5 MG ONCE ONE 10/04 0230 DC PO 10/04 0231 Last 24 Hrs of Lab/Desean Results Last 24 Hrs of Labs/Mics: Laboratory Tests 10/04/17 0615: Anion Gap 14, Estimated GFR 32 L, BUN/Creatinine Ratio 20.0, CBC w Diff NO MAN DIFF REQ, RBC 3.84 L, MCV 80.8, MCH 26.9 L, MCHC 33.3, RDW 15.6 H, MPV 7.9, Gran % 68.8, Lymphocytes % 20.7, Monocytes % 9.4 H, Eosinophils % 0.7, Basophils % 0.4, Absolute Granulocytes 4.4, Absolute Lymphocytes 1.3, Absolute Monocytes 0.6, Absolute Eosinophils 0, Absolute Basophils 0 10/03/17 1100: APTT Cancelled Assessment/Plan Assessment: Mr. Jameson is a 76-year-old male with a history of obesity, hypertension, dyslipidemia, diabetes mellitus, chronic kidney disease, anemia, aortic stenosis, carotid artery disease, moderate to severe concentric left ventricular hypertrophy, previously documented atrial fibrillation not on AC, acute diastolic heart failure who was advised ED for worsening shortness of breath. Problem list: Acute hypoxic respiratory failure 2/2 CAP and Acute on chronic diastolic heart failure Type II [place] Hypokalemia RADHA Plan: * As per ED documentation patient had a O2 sat 88% * Patient currently on ambient air * Incentive spirometry * discontinue IV heparin as per cardiology as patient does not seem to have AFIB * Continue Lasix PO * Continue IV ceftriaxone, azithromycin for total 7 days * Continue metoprolol, aspirin, atorvastatin, hydralazine, gabapentin, minoxidil * Accu-Cheks and NovoLog SS, continue Levemir * Monitor and replete potassium as needed * Monitor renal function * Stage 3 diastolic dysfunction with a restrictive filling pattern. EF > 55% * Cardiology recommendations appreciated * Pulmonology recommendations appreciated * Diet: Diabetic Problem List: 1. CHF exacerbation 2. CAP (community acquired pneumonia) 3. Elevated troponin Pain Ratin Pain Location: NA Pain Goal: Remain pain free Pain Plan: NA Tomorrow's Labs & Rationales: None None
[2017-10-04 07:55] LABS: ABSOLUTE BASOPHIL COUNT 0 /CUMM (0.0-0.2); ABSOLUTE EOSINOPHIL COUNT 0 /CUMM (0.0-0.7); ABSOLUTE GRANULOCYTE CT 4.4 /CUMM (1.4-6.5); ABSOLUTE LYMPH COUNT 1.3 /CUMM (1.2-3.4); ABSOLUTE MONOCYTE COUNT 0.6 /CUMM (0.10-0.60); BASOPHIL % 0.4 % (0.0-2.0); EOSINOPHIL % 0.7 % (0-5); GRANULOCYTE % 68.8 % (42.2-75.2); MEAN CORPUSCULAR HGB 26.9 PG (27.0-31.0); MEAN CORPUSCULAR HGB CONC 33.3 G/DL (33.0-37.0); MEAN CORPUSCULAR VOLUME 80.8 FL (80.0-94.0); MEAN PLATELET VOLUME 7.9 FL (7.4-10.4); PLATELET COUNT 192 /CUMM (130-400); RBC DISTRIBUTION WIDTH 15.6 % (11.5-14.5); RED BLOOD CELL CT 3.84 /CUMM (4.70-6.10); WHITE BLOOD CELL COUNT 6.4 /CUMM (4.8-10.8)
[2017-10-04] MEDS ORDERED: AZITHROMYCIN500 M3 PO (07:57)
[2017-10-04] MEDS ORDERED: AUGMENTIN 875-1 EACH PO (07:57)
--- NOTE | 2017-10-04 07:58 | Patient Discharge Instructions ---
Discharge Instructions General Discharge Information You were seen/treated for: Community acquired pneumonia Acute on chronic diastolic heart failure You had these procedures: none Special Instructions: Follow up with your PCP within 1 week after discharge Follow up with your financial compliance examiner within 1 week upon discharge Follow up with your bonding and composite fabricator within 1 week upon discharge Diet Recommended Diet: Heart Healthy Activity Full Activity/No Limits: Yes Acute Coronary Syndrome Inclusion Criteria At DC or during hospital stay patient has or had the following: ACS DIAGNOSIS No Discharge Core Measures Meds if any: Prescribed or Continued at Discharge Meds if any: NOT Prescribed or Continued at Discharge Congestive Heart Failure Inclusion Criteria At DC or during hospital stay patient has or had the following: CHF DIAGNOSIS No Discharge Core Measures Meds if any: Prescribed or Continued at Discharge Meds if any: NOT Prescribed or Continued at Discharge Cerebrovascular accident Inclusion Criteria At DC or during hospital stay patient has or had the following: CVA/TIA Diagnosis No Discharge Core Measures Meds if any: Prescribed or Continued at Discharge Meds if any: NOT Prescribed or Continued at Discharge Venous thromboembolism Inclusion Criteria VTE Diagnosis No VTE Type NONE VTE Confirmed by (Test) NONE Discharge Core Measures - Per Current guidelines, there needs to be overlap - treatment for the first 5 days of Warfarin therapy. - If discharged on Warfarin prior to 5 days of - overlap therapy, the patient will need to be - assessed for post discharge needs including - *Post discharge parental anticoagulation - *Warfarin and/or parental anticoagulation education - *Follow up date to check INR post discharge At least 5 days overlap therapy as Inpatient No Meds if any: Prescribed or Continued at Discharge Note: Overlap Therapy is Warfarin and Anticoagulant Meds if any: NOT Prescribed or Continued at Discharge
[2017-10-04 08:01] VITALS: BP 112/62
--- NOTE | 2017-10-04 11:02 | Discharge Summary ---
Visit Information Visit Dates Admission Date: 10/01/17 Discharge Date: 10/04/17 Hospital Course Course Attending Physician: Joshua Chris MD Primary Care Physician: Wade GONSALES,Sara Hospital Course: Mr. Jameson is a 76-year-old male with a history of obesity, hypertension, dyslipidemia, diabetes mellitus, chronic kidney disease, anemia, aortic stenosis, carotid artery disease, moderate to severe concentric left ventricular hypertrophy, previously documented atrial fibrillation not on AC, acute diastolic heart failure who was advised ED for worsening shortness of breath admitted to telemetry Problem list: Acute hypoxic respiratory failure 2/2 CAP and Acute on chronic diastolic heart failure Type II NH Hypokalemia RADHA Acute hypoxic respiratory failure most likely secondary to CAP and Acute on chronic diastolic heart failure As per ED documentation patient had a O2 sat 88% requiring oxygen supplementation. Cardiology and Pulmonology was consulted. He was administed IV Lasix and subsequently transitioned to oral. He was placed IV ceftriaxone, azithromycin for a total 7 days. He was given incentive spirometry. ECHO demonstrated Stage 3 diastolic dysfunction with a restrictive filling pattern, EF > 55%. We continued his metoprolol, aspirin, atorvastatin, hydralazine, gabapentin, minoxidil Elevated troponins most likely secondary to demand ischemia His ECG showed sinus rhythm with multiple PAC's, LAFB. Repeat EKG appeared to be in Afib due to difficultly to discern P waves with ST-T changes. Cardiology was consulted. Serial troponins and ECG ruled ACS. We discontinued IV heparin as per cardiology as patient did not seem to have AFIB. Hypokalemia We monitored and repleted his potassium as needed RADHA We monitored his renal function History of Insulin dependent Diabetes We performed Accu-Cheks. We administered NovoLog on a sliding scale and Levemir Allergies: Coded Allergies: hydrocodone (NAUSEA 04/11/17) Pertinent Lab Results: 10/01/17-1635 CT CHEST WO IV CONTRAST FINDINGS: There are multiple ill-defined foci of airspace disease involving both lungs. These findings most likely represent a manifestation of pneumonia. Small bilateral pleural effusions layering posteriorly. No pneumothorax. The trachea and major airways are patent. The chest wall is grossly intact. This was portions of the thoracic outlet including the thyroid gland are normal. Limited visualization of the upper abdomen reveals no abnormal finding. IMPRESSION: There are multiple ill-defined foci of airspace disease involving both lungs. These findings are most consistent with pneumonia. 10/02/17 ECHOCARDIOGRAM CONCLUSIONS Normal size left ventricle. Moderate concentric left ventricular hypertrophy. Normal left ventricular ejection fraction visually estimated at 55%. Restrictive filling pattern of the left ventricle for age (stage 3 diastolic dysfunction). Normal right ventricular size and function. Normal right atrial size. Mild left atrial dilatation. Trace mitral regurgitation. Moderate to severe aortic stenosis. Trace aortic regurgitation. Trace tricuspid regurgitation. Mild pulmonary hypertension. Dilated inferior vena cava. 10/02/17-1000 XRY-PORTABLE CHEST XRAY FINDINGS: The heart is at the upper limit of normal, stable. Monitoring leads project over the chest. Mediastinal silhouette is stable. There is a fullness of right lyndon, unchanged from previous. Multifocal ill-defined airspace opacities in the mid to lower lungs bilaterally are redemonstrated. No significant interval change. Possible small bilateral pleural effusions. No pneumothorax. IMPRESSION: No significant interval change. Persistent multifocal ill-defined airspace opacities in the mid to lower lungs bilaterally. Small bilateral pleural effusions. Disposition Summary Disposition Principal Diagnosis: CAP Additional Diagnosis: Acute on chronic diastolic heart failure Type II NH Hypokalemia RADHA Discharge Disposition: home or self care Discharge Instructions General Discharge Information Code Status: Full Code Patient's Diet: Diabetic Patient's Activity: As tolerated Follow-Up Instructions/Appts: Follow up with your PCP within 1 week after discharge Follow up with your soft mud molder within 1 week upon discharge Follow up with your psychological tests sales agent within 1 week upon discharge Medications at Discharge Discharge Medications: Continue taking these medications: Hydralazine HCl (Hydralazine HCl) 25 MG TABLET 1 Tablet ORAL THREE TIMES DAILY Comments: Last Taken:10/04/17 Time:0800 Finasteride (Finasteride) 5 MG TABLET 1 Tablet ORAL Every night Comments: Last Taken:10/03/17 Time:2143 Furosemide (Furosemide) 20 MG TABLET 3 Tablet ORAL DAILY Comments: Last Taken:10/04/17 Time:0800 Minoxidil (Minoxidil) 2.5 MG TABLET 2 Tablet ORAL TWICE DAILY Comments: Last Taken:10/04/17 Time:0800 Aspirin (Children's Aspirin) 81 MG TAB.CHEW 1 Tablet ORAL DAILY Comments: Last Taken:10/04/17 Time:800 Metoprolol Tartrate (Metoprolol Tartrate) 25 MG TABLET 0.5 Tablet ORAL DAILY Qty = 90 Comments: Last Taken:10/04/17 Time:0800 Allopurinol (Allopurinol) 100 MG TABLET 1 Tablet ORAL DAILY Qty = 90 Comments: Last Taken: 10/04/17 Time:0801 Cyanocobalamin (Vitamin B-12) 1,000 MCG TABLET 1 Tablet ORAL DAILY Comments: NOT GIVEN IN HOSPITAL Cinnamon Bark (Cinnamon) 500 MG CAPSULE 1 Capsule ORAL DAILY Comments: NOT GIVEN IN HOSPITAL Lactobacillus Acidophilus (Probiotic) 10 BILLION CELL CAPSULE 1 Capsule ORAL DAILY Comments: Last Taken: 10/04/17 Time: 0800 Atorvastatin Calcium (Atorvastatin Calcium) 40 MG TABLET 0.5 Tablet ORAL DAILY Qty = 90 Comments: Last Taken:10/03/17 Time:1652 Gabapentin (Gabapentin) 100 MG CAPSULE 1 Capsule ORAL THREE TIMES DAILY Qty = 270 Comments: Last Taken:10/04/17 Time:0800 Insulin-Lantus (Lantus) 100 UNIT/ML VIAL 28 Units Inject into fatty tissue Every Morning Comments: Last Taken:10/04/17 Time:0800 Insulin-Lantus (Lantus) 100 UNIT/ML VIAL 33 Units Inject into fatty tissue Every night Comments: Last Taken: 10/03/17 Time: 2143 Insulin Lispro (Humalog) 100 UNIT/ML VIAL Units Inject into fatty tissue BEFORE MEALS AND AT BEDTIME Comments: Last Taken:10/04/17 Time:0800 Docusate Sodium (Colace) 100 MG CAPSULE 1 Capsule ORAL TWICE DAILY as needed for CONSTIPATION Qty = 60 Instructions: . Comments: NOT GIVEN IN HOSPITAL Magnesium Hydroxide (Milk Of Magnesia) 400 MG/5 ML ORAL.SUSP 5 Milliliters ORAL DAILY NEEDED as needed for CONSTIPATION Qty = 300 Instructions: . Comments: Last Taken:10/03/17 Time:1135 Start taking the following new medications: Azithromycin (Azithromycin) 500 MG TABLET 1 Tablet ORAL DAILY Qty = 7 No Refills Comments: Last Taken: 10/03/17 Time: 2206 Amoxicillin/Potassium Clav (Augmentin 875-125 Tablet) 875 MG-125 MG TABLET 1 Tablet ORAL TWICE DAILY Qty = 8 No Refills Comments: NOT GIVEN IN HOSPITAL Copies To: Sapphire GONSALES,Timothy Lee; Wade GONSALES,Sara; Sera GONSALES,Fadi Attending MD Review Statement Documenting Attending: Joshua Chris MD Other Findings: The patient was seen and agree with the plan of care upon discharge.
--- NOTE | 2017-10-04 11:42 | PN- Pulmonary ---
See Addendum Subjective HPI/Critical Care Issues: pt seen and examined awaiting dc Objective Current Medications: Current Medications Sig/Leonila Start time Last Medication Dose Route Stop Time Status Admin Allopurinol 100 MG DAILY 10/02 1000 AC 10/04 PO 0801 Aspirin 81 MG DAILY 10/02 1000 AC 10/04 PO 0800 Atorvastatin Calcium 20 MG 1700 10/02 1700 AC 10/03 PO 1652 Azithromycin 500 MG Q24H 10/01 2300 AC 10/03 Dextrose/Water 250 ML IV 2206 Ceftriaxone Sodium 1,000 MG Q24H 10/02 2200 AC 10/03 IV 2143 Docusate Sodium 100 MG BID PRN 10/01 2145 AC PO Finasteride 5 MG QPM 10/01 2200 AC 10/03 PO 2143 Furosemide 60 MG DAILY 10/04 1000 AC 10/04 PO 0800 Furosemide 60 MG DAILY 10/02 1000 DC 10/03 IV 0803 Gabapentin 100 MG TID 10/01 2200 AC 10/04 PO 0801 Heparin Sodium 5,000 UNIT Q8 10/03 0749 AC 10/04 (Porcine) NV 0553 Hydralazine HCl 25 MG TID 10/01 2200 AC 10/04 PO 0800 Insulin Aspart 0 TIDAC 10/02 0800 AC 10/03 SC 1135 Insulin Detemir 28 UNITS DAILY 10/02 1000 AC 10/04 NV 0759 Insulin Detemir 33 UNITS AT BEDTIME 10/01 2200 AC 10/03 SC 2143 Lactobacillus 1 CAP DAILY 10/02 1000 AC 10/04 Acidophilus PO 0801 Magnesium Hydroxide 30 ML ONE ONE 10/03 1145 DC 10/03 PO 10/03 1146 1135 Melatonin 5 MG ONCE ONE 10/03 1645 DC 10/03 PO 10/03 1646 2143 Metoprolol Tartrate 12.5 MG DAILY 10/02 1000 AC 10/04 PO 0801 Minoxidil 5 MG BID 10/01 2200 AC 10/04 PO 0801 Zolpidem Tartrate 5 MG ONCE ONE 10/04 0230 DC PO 10/04 0231 Vital Signs & I&O Last 24 Hrs of Vitals and I&O: Vital Signs Date Time Temp Pulse Resp B/P B/P Pulse O2 O2 Flow FiO2 Mean Ox Delivery Rate 10/04 0801 69 112/62 10/04 0800 69 112/62 03 0711 98.5 69 22 112/62 99 Room Air 10/03 2219 98.6 73 22 110/70 93 10/03 2144 70 110/68 10/03 1653 77 144/66 10/03 1600 92 Room Air 10/03 1435 98.5 68 20 106/60 92 Room Air Intake & Output 10/04 1600 10/04 0800 10/04 0000 Intake Total 110 490 Output Total 200 Balance 110 290 Intake, IV 10 40 Intake, Oral 100 450 Output, Urine 200 Patient 199 lb Weight Weight Bed scale Measurement Method Exam Other Physical Findings: Generally - Awake, alert and comfortable without distress Head and neck - normocephalic, atraumatic, EOMI grossly intact Cardiovascular - S1, S2, Lungs -improved rhonchi Abdomen - Bowel sounds positive, soft, non-tender Extremities - b/l edema Results Last 24 Hrs of Lab Results: Laboratory Tests 10/04/1715: Anion Gap 14, Estimated GFR 32 L, BUN/Creatinine Ratio 20.0, CBC w Diff NO MAN DIFF REQ, RBC 3.84 L, MCV 80.8, MCH 26.9 L, MCHC 33.3, RDW 15.6 H, MPV 7.9, Gran % 68.8, Lymphocytes % 20.7, Monocytes % 9.4 H, Eosinophils % 0.7, Basophils % 0.4, Absolute Granulocytes 4.4, Absolute Lymphocytes 1.3, Absolute Monocytes 0.6, Absolute Eosinophils 0, Absolute Basophils 0 Impression/Plan Impression/Plan Impression/Plan: Impression 76 year old man. Consultation for abn ct, dyspnea. Hx of , CAD, CKD, a.fib, diastolic chf, presents with dyspnea. ECHO 04/2017 - stage 2 diastolic dysfunction, moderate . CT multiple foci of airspace disease. No leukocytosis, No fevers. Differential diagnosis for his pulmonary presentation is broad including infectious, inflammatory or cardiac. Plan -f/u cardiology, diuresis, no stage 3 diastolic dysfunction -ins/outs, daily weights -s/p abx -ac for afib -bronchoscopy at this point is premature, will continue to follow clinical course -TRC/Nebs DVT prophylaxis at all times DC planning
[2017-10-05] MEDS ORDERED: AUGMENTIN 500-1 EACH PO (13:41)
[2017-10-05] MEDS ORDERED: PREDNISONE20 M1 PO (13:41)
== END 2017-10-04 11:55 | DRG 280 ==
LOC: ERH 14:28 → 1NO 20:25 → ERHI 20:25 → ENRESERV 21:14 → ENTRNSPT 22:09 → EDTRNSPT 22:13 → EDTRNSPTSTS 22:13 → 1NO 22:22 → CMPTRNSPT 22:30 → 1NO 10-02 08:58 → ENPENDDIS 10-04 10:20 → ENTRNSPT 10-04 11:18 → EDTRNSPTSTS 10-04 11:49 → CMPTRNSPT 10-04 11:53 → 1NO 10-04 11:55
PROVIDERS: Internal Medicine; Internal Medicine Infectious Disease; Physician Assistant; Student in an Organized Health Care Education/Training Program
DX: I13.0 Hypertensive heart and chronic kidney disease with heart failure and stage 1 through stage 4 chronic kidney disease, or unspecified chronic kidney disease (principal); J18.9 Pneumonia, unspecified organism; I21.A1 Myocardial infarction type 2; J96.01 Acute respiratory failure with hypoxia; N17.9 Acute kidney failure, unspecified; E11.22 Type 2 diabetes mellitus with diabetic chronic kidney disease; I44.1 Atrioventricular block, second degree; I50.33 Acute on chronic diastolic (congestive) heart failure; E66.9 Obesity, unspecified; Z68.31 Body mass index [BMI] 31.0-31.9, adult; N18.9 Chronic kidney disease, unspecified; E87.6 Hypokalemia; Z95.0 Presence of cardiac pacemaker
CPT/HCPCS: 1NSP; 84145; 36592; 71045; 71046; 78582; 82436; 87040; 87449; 87450; 87804; 87804-59; 93005; 93010; 93306; 99291; A9540; A9558; J0456; J0696; J1644; J1940; J3490; J7060

== ENCOUNTER 2017-10-05 00:50 | Observation (INO) | payer OTHER, MEDICARE ==
[~2017-10-05] VITALS: Ht 167.6 cm; Wt 88.2 kg
[~2017-10-05 00:50] MED LIST changes: +AZITHROMYCIN500 M3 PO
[2017-10-05 01:08] LABS: ABSOLUTE BASOPHIL COUNT 0 /CUMM (0.0-0.2); ABSOLUTE EOSINOPHIL COUNT 0 /CUMM (0.0-0.7); ABSOLUTE GRANULOCYTE CT 4.9 /CUMM (1.4-6.5); ABSOLUTE LYMPH COUNT 0.8 /CUMM (1.2-3.4); ABSOLUTE MONOCYTE COUNT 0.5 /CUMM (0.10-0.60); BASOPHIL % 0.5 % (0.0-2.0); EOSINOPHIL % 0.6 % (0-5); GRANULOCYTE % 77.6 % (42.2-75.2); HEMATOCRIT 31.7 % (42-52); MEAN CORPUSCULAR HGB 26.6 PG (27.0-31.0); MEAN CORPUSCULAR HGB CONC 33.6 G/DL (33.0-37.0); MEAN CORPUSCULAR VOLUME 79.2 FL (80.0-94.0); MEAN PLATELET VOLUME 7.5 FL (7.4-10.4); PLATELET COUNT 177 /CUMM (130-400); RBC DISTRIBUTION WIDTH 15.5 % (11.5-14.5); RED BLOOD CELL CT 4.01 /CUMM (4.70-6.10); WHITE BLOOD CELL COUNT 6.3 /CUMM (4.8-10.8)
--- NOTE | 2017-10-05 01:35 | RADIOLOGY REPORT ---
EXAMINATION: XR PORTABLE CHEST CLINICAL INFORMATION: Recent CHF, pneumonia. Recurrent shortness of breath. COMPARISON: 10/02/2017 TECHNIQUE: Portable frontal view of the chest was obtained. FINDINGS: Cardiac leads overlie the chest. The lungs are well expanded. Persistent right infrahilar and left perihilar airspace opacities. Diffuse bronchial wall thickening. No pleural effusion or pneumothorax. The cardiomediastinal silhouette remains prominent. IMPRESSION: Similar appearance of right infrahilar and left perihilar airspace opacities. Diffuse bronchial wall thickening could represent an underlying small airways process or could be chronic.
--- NOTE | 2017-10-05 03:26 | ED DYSPNEA/ASTHMA COMPLAINT ---
History of Present Illness General Chief Complaint: Dyspnea (COPD, CHF, Other) Stated Complaint: BIBA SOB Source: patient, family, old records, EMS Exam Limitations: no limitations Vital Signs & Intake/Output Vital Signs & Intake/Output Vital Signs Date Time Temp Pulse Resp B/P B/P Pulse O2 O2 Flow FiO2 Mean Ox Delivery Rate 10/05 0634 95 Nasal 2.0L Cannula 10/05 0634 97.7 73 20 125/64 95 Nasal 2.0L Cannula 10/05 0304 97.8 85 18 131/73 96 Room Air 10/05 0200 95 Room Air 10/05 0053 98.2 71 18 134/64 95 Room Air Allergies Coded Allergies: hydrocodone (NAUSEA 04/11/17) Reconcile Medications Allopurinol 100 MG TABLET 1 TAB PO DAILY GOUT (Reported) Amoxicillin/Potassium Clav (Augmentin 875-125 Tablet) 875 MG-125 MG TABLET 1 TAB PO BID PNEUMONIA Aspirin (Children's Aspirin) 81 MG TAB.CHEW 1 TAB PO DAILY HEART HEALTH ( Reported) Atorvastatin Calcium 40 MG TABLET 0.5 TAB PO DAILY CHOLESTEROL (Reported) Azithromycin 500 MG TABLET 1 TAB PO DAILY PNEUMONIA Cinnamon Bark (Cinnamon) 500 MG CAPSULE 1 CAP PO DAILY SUPPLEMENT (Reported) Cyanocobalamin (Vitamin B-12) 1,000 MCG TABLET 1 TAB PO DAILY VITAMIN SUPPORT (Reported) Docusate Sodium (Colace) 100 MG CAPSULE 1 CAP PO BID PRN CONSTIPATION . Finasteride 5 MG TABLET 1 TAB PO QPM PROSTATE (Reported) Furosemide 20 MG TABLET 3 TAB PO DAILY WATER RETENTION (Reported) Gabapentin 100 MG CAPSULE 1 CAP PO TID NERVE PAIN (Reported) Hydralazine HCl 25 MG TABLET 1 TAB PO TID BP (Reported) Insulin Lispro (Humalog) 100 UNIT/ML VIAL DM (Reported) Insulin-Lantus (Lantus) 100 UNIT/ML VIAL 28 UNITS SC QAM DM (Reported) Insulin-Lantus (Lantus) 100 UNIT/ML VIAL 33 UNITS SC QPM DM (Reported) Lactobacillus Acidophilus (Probiotic) 10 BILLION CELL CAPSULE 1 CAP PO DAILY GI (Reported) Magnesium Hydroxide (Milk Of Magnesia) 400 MG/5 ML ORAL.SUSP 5 ML PO DAILY NEEDED PRN CONSTIPATION . Metoprolol Tartrate 25 MG TABLET 0.5 TAB PO DAILY HEART/BP (Reported) Minoxidil 2.5 MG TABLET 2 TAB PO BID BP (Reported) Core Measure Meds Pre-Hospital aspirin, antibiotics Triage Note: PT BIBA FROM HOME FOR SOB S/P BEING D/C FROM INPATIENT 10/04/17 FOR CHF. PER PT HE WAS SITTING IN CHAIR AT HOME WITH FEET ELEVATED WHEN HE FELT DIFFICULTY CATCHING HIS BREATH. PT ARRIVES SATTING 95% ON RA, PLACED ON 2L NC AND PT STATES NC FEELS MUCH BETTER. TRACE PEDAL EDEMA NONPITTING NOTED. Triage Nurses Notes Reviewed? yes Onset: Just prior to arrival Duration: minute(s):, constant, continues in ED Timing: recent history Severity: severe Activities at Onset: activity Prior Episodes/Possible Cause: frequent episodes Modifying Factors: Improves With: rest. Worsens With: movement. Associated Symptoms: cough, edema, wheezing, weakness HPI: Less than 1 day prior to admission patient was discharged for CHF pneumonia COPD afib. Prior to admission he became short of breath with exertion. Once EMS arrived and placed him on nasal cannula he felt relieved. He denies fever chills nausea vomiting diarrhea abdominal pain chest pain headache dysuria rash bleeding. (Will Sotelo MD) Past History Travel History Traveled to [place] past 21 day No Medical History Any Pertinent Medical History? see below for history Neurological: NONE EENT: NONE Cardiovascular: AFIB, CHF, hypertension Respiratory: NONE Gastrointestinal: constipation Hepatic: NONE Renal: "LOW FUNCTIONING KIDNEYS" Musculoskeletal: NONE Psychiatric: NONE Endocrine: diabetes Blood Disorders: NONE Cancer(s): NONE FURNACE RELINER/Reproductive: NONE History of MRSA: No History of VRE: No History of CDIFF: No Surgical History Surgical History: BACK SURGERIES RIGHT TKR Psychosocial History Who do you live with Significant Other Services at Home None What is your primary language Yakut Tobacco Use: Never used ETOH Use: denies use Family History Family History, If Any: MOTHER (CAD, multiple familes on mother sides had heart attack before 60). Hx Contributory? No (Will Sotelo MD) Review of Systems Review of Systems Constitutional: Reports: no symptoms. EENTM: Reports: no symptoms. Respiratory: Reports: see HPI, cough, short of breath. Cardiovascular: Reports: see HPI, edema. GI: Reports: no symptoms. Genitourinary: Reports: no symptoms. Musculoskeletal: Reports: no symptoms. Skin: Reports: no symptoms. Neurological/Psychological: Reports: no symptoms. Hematologic/Endocrine: Reports: no symptoms. Immunologic/Allergic: Reports: no symptoms. All Other Systems: Reviewed and Negative (Will Sotelo MD) Physical Exam Physical Exam General Appearance: well developed/nourished, alert, awake, anxious, moderate distress, obese Head: atraumatic, normal appearance Eyes: Bilateral: normal appearance, PERRL, EOMI. Ears, Nose, Throat: normal pharynx, normal ENT inspection, hearing grossly normal Neck: normal inspection, supple, full range of motion, no midline tenderness Respiratory: chest non-tender, decreased breath sounds, rales Cardiovascular: regular rate/rhythm, normal peripheral pulses, norml femoral pulses equa Peripheral Pulses: 4+ carotid (R), 4+ carotid (L) Gastrointestinal: normal bowel sounds, soft, non-tender, no organomegaly Extremities: normal capillary refill, normal range of motion, pedal edema Neurologic/Psych: no motor/sensory deficits, awake, alert, oriented x 3, normal mood/affect, head cook II-XII nml as tested Skin: intact, normal color, cyanosis Lymphatic: no anterior cervical kenneth Core Measures ACS in differential dx? Yes CVA/TIA Diagnosis No Sepsis Present: No Sepsis Focused Exam Completed? No (Will Sotelo MD) Progress Differential Diagnosis: bronchitis, CHF, COPD, pneumonia Plan of Care: Orders Procedure Date/time Status Consistent Carbohydrate 2 10/05 B Active Patient Data 10/[address] in observation 10/05 0935 Active ED Holding Orders 10/05 0935 Active Vital Signs 10/05 0935 Active Code Status 10/05 0935 Active TROPONIN LEVEL 10/05 0848 Complete PT Evaluate & Treat 10/05 0325 Active CASE MANAGEMENT CONSULT 10/05 0325 Active TROPONIN LEVEL 10/05 0059 Complete MAGNESIUM 10/05 0059 Complete D-DIMER 10/05 0059 Complete COMPREHENSIVE METABOLIC PANEL 10/05 0059 Complete CBC WITHOUT DIFFERENTIAL 10/05 0059 Complete B-TYPE NATRIURETIC PEP (BNP) 10/05 0059 Complete EKG 10/05 0059 Active Current Medications Sig/Leonila Start time Last Medication Dose Stop Time Status Admin Finasteride 5 MG QPM 10/05 2200 UNVr (Proscar) Allopurinol 100 MG DAILY 10/05 1000 UNVr (Zyloprim) Amoxicillin/ 875 MG BID 10/05 1000 UNVr Clavulanate Potassium (Augmentin) Aspirin 81 MG DAILY 10/05 1000 UNVr (Aspirin) Atorvastatin Calcium 20 MG DAILY 10/05 1000 UNVr (Lipitor) Azithromycin 500 MG DAILY 10/05 1000 UNVr (Zithromax) Furosemide 60 MG DAILY 10/05 1000 UNVr (Lasix) Gabapentin 100 MG TID 10/05 1000 UNVr (Neurontin) Hydralazine HCl 25 MG TID 10/05 1000 UNVr (Apresoline) Insulin Detemir 28 UNITS DAILY 10/05 1000 UNVr (Levemir) Metoprolol Tartrate 12.5 MG DAILY 10/05 1000 UNVr (Lopressor) Minoxidil 5 MG BID 10/05 1000 UNVr (Minoxidil 2.5 MG Tab) Laboratory Tests 10/05/17 0858: Troponin I 0.13 *H 10/05/17 0100: Anion Gap 13, Estimated GFR 34 L, BUN/Creatinine Ratio 22.6, Glucose 198 H, Calcium 10.4 H, Magnesium 2.4 H, Total Bilirubin 0.6, AST 28, ALT 39, Alkaline Phosphatase 69, Troponin I 0.13 *H, [id number] Pept 2400 H, Total Protein 6.9, Albumin 4.4, Globulin 2.5, Albumin/Globulin Ratio 1.8, D-Dimer High Sensitivty 651 H, CBC w Diff NO MAN DIFF REQ, RBC 4.01 L, MCV 79.2 L, MCH 26.6 L, MCHC 33.6, RDW 15.5 H, MPV 7.5, Gran % 77.6 H, Lymphocytes % 12.7 L, Monocytes % 8.6, Eosinophils % 0.6, Basophils % 0.5, Absolute Granulocytes 4.9, Absolute Lymphocytes 0.8 L, Absolute Monocytes 0.5, Absolute Eosinophils 0, Absolute Basophils 0 Diagnostic Imaging: Viewed by Me: Radiology Read. Discussed w/RAD: Radiology Read. CXR Impression: Similar appearance of right infrahilar and left perihilar airspace opacities. Diffuse bronchial wall thickening could represent an underlying small airways process or could be chronic. Initial ED EKG: AFIB, nonspecific ST T wave chg Prior EKG: unchanged Rhythm Strip: atrial fibrillation Hand-Off Endorsed To: Maci GONSALES,Ray Guzman Endorsed Time: 0700 Pending: consult (PT, case mgmt) (Ashleigh GONSALES,Will) Comments: D/W DR. VALLE, UNSURE IF IT IS CARDIAC VS PULMONARY. HE WILL CONSULT BUT WOULD LIKE THE PATIENT PLACED INPTAINET OBS FOR FURTHER EVALUATION. D/W DR. WHITE, HE WILL CONSULT WELL. AMBULATORY SAT 90% (Maci GONSALES,Ray Guzman) Departure Departure Disposition: STILL A PATIENT Condition: Stable Clinical Impression Primary Impression: Dyspnea on exertion Secondary Impressions: Atrial fibrillation with normal ventricular rate, CHF ( congestive heart failure), Chronic renal disease, Elevated troponin, Pneumonia Referrals: Sara Olvera MD (PCP/Family) Departure Forms: Customer Survey General Discharge Information (Will Sotelo MD) Observation Note Spoke With: Karla Machuca MD Physician Advisor Notified: MARTINE GONSALES,CHAPARRO Guzman Place Patient In: Non-ED OBS Care Area Rationale for Observation: My rational for observation is as follows [CARDIOLOGY AND PULM CONSULTATION, IV DIURESIS, TELE MONITORING, SERIAL ENZYMES.]. (Ray Lux MD) Critical Care Note Critical Care Note Critical Care Time: non-applicable (Will Sotelo MD)
--- NOTE | 2017-10-05 10:06 | History & Physical ---
General Information and HPI MD Statement: I have seen and personally examined RANJAN TAPIA and documented this H&P. The patient is a 76 year old M who presented with a patient stated chief complaint of [dyspnea]. History of Present Illness: 76 yo M with h/o chronic diastolic heart failure, CKD stage 3, HTN, DM, anemia, , paroxysmal Afib not on AC, is sent in by Dr. Leary for worsening exertional dyspnea. He was last admitted Aug 2017 for hyperkalemia. Since discharge he reports exertional dyspnea. [facility] and gets IV lasix once a week. He was admitted to from 10/01-10/04 for Acute hypoxic respiratory failure, Multifocal airspace disease, community acquired pneumonia, Acute on chronic diastolic heart failure, type 2 [place]. echocardiogram was performed on 04/13/2017 and revealed a normal size left ventricle with moderate concentric left ventricular hypertrophy, normal systolic function with an estimated EF of 55%, an upper normal limit for size right ventricle and RV pressure of 43 mm Hg, normal right atrial size, mildly dilated left atrium, age-related valvular changes, no pericardial effusion, and a mildly dilated ascending aorta. The Doppler portion of the study revealed evidence of trace mitral The Doppler portion of the study revealed evidence of moderate aortic stenosis, trace mitral, trace tricuspid, and trace pulmonic regurgitation , and a "pseudo-normal" left ventricular inflow pattern consistent with stage II diastolic dysfunction. Allergies/Medications Allergies: Coded Allergies: hydrocodone (NAUSEA 04/11/17) Home Med list Allopurinol 100 MG TABLET 1 TAB PO DAILY GOUT (Reported) Amoxicillin/Potassium Clav (Augmentin 875-125 Tablet) 875 MG-125 MG TABLET 1 TAB PO BID PNEUMONIA Aspirin (Children's Aspirin) 81 MG TAB.CHEW 1 TAB PO DAILY HEART HEALTH ( Reported) Atorvastatin Calcium 40 MG TABLET 0.5 TAB PO DAILY CHOLESTEROL (Reported) Azithromycin 500 MG TABLET 1 TAB PO DAILY PNEUMONIA Cinnamon Bark (Cinnamon) 500 MG CAPSULE 1 CAP PO DAILY SUPPLEMENT (Reported) Cyanocobalamin (Vitamin B-12) 1,000 MCG TABLET 1 TAB PO DAILY VITAMIN SUPPORT (Reported) Docusate Sodium (Colace) 100 MG CAPSULE 1 CAP PO BID PRN CONSTIPATION . Finasteride 5 MG TABLET 1 TAB PO QPM PROSTATE (Reported) Furosemide 20 MG TABLET 3 TAB PO DAILY WATER RETENTION (Reported) Gabapentin 100 MG CAPSULE 1 CAP PO TID NERVE PAIN (Reported) Hydralazine HCl 25 MG TABLET 1 TAB PO TID BP (Reported) Insulin Lispro (Humalog) 100 UNIT/ML VIAL DM (Reported) Insulin-Lantus (Lantus) 100 UNIT/ML VIAL 28 UNITS SC QAM DM (Reported) Insulin-Lantus (Lantus) 100 UNIT/ML VIAL 33 UNITS SC QPM DM (Reported) Lactobacillus Acidophilus (Probiotic) 10 BILLION CELL CAPSULE 1 CAP PO DAILY GI (Reported) Magnesium Hydroxide (Milk Of Magnesia) 400 MG/5 ML ORAL.SUSP 5 ML PO DAILY NEEDED PRN CONSTIPATION . 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 Psychosocial History Who Do You Live With? girlfriend Services at Home: None Primary Language: Afghan ETOH Use: denies use Functional Ability ADLs Independent: dressing, eating, toileting, bathing. Ambulation: independent IADLs Independent: shopping, housework, finances, food prep, telephone, transportation , medication admin. Core Measures/Misc (04/22) Cerebrovascular Accident CVA/TIA Diagnosis: No Sepsis (View protocol) Sepsis Present: No
--- NOTE | 2017-10-05 11:15 | History & Physical ---
Mukesh Guzman 10/05/17 1114: General Information and HPI History of Present Illness: Mr. Jameson is a 76-year-old male with a history of obesity, hypertension, dyslipidemia, diabetes mellitus, chronic kidney disease, anemia, aortic stenosis , carotid artery disease, moderate to severe concentric left ventricular hypertrophy, previously documented atrial fibrillation not on AC, acute diastolic heart failure discharged yesterday for CAP and acute on CHF who presents to the ED with progressively worsening SOB. Patient reports after being discharged at noon yesterday he went home and was able to perform his ADLs. He noticed he was SOB after going up and down the stairs. He went to sit down on the couch and his SOB continue to get progressively worse. At bedtime he added an extra pillow but continued to have orthopnea. He denies fever, chills, cough, nausea, vomiting, lightheadedness, CP, urinary or bowel symptoms Allergies/Medications Allergies: Coded Allergies: hydrocodone (NAUSEA 04/11/17) Home Med list Allopurinol 100 MG TABLET 1 TAB PO DAILY GOUT (Reported) Amoxicillin/Potassium Clav (Augmentin 875-125 Tablet) 875 MG-125 MG TABLET 1 TAB PO BID PNEUMONIA Aspirin (Children's Aspirin) 81 MG TAB.CHEW 1 TAB PO DAILY HEART HEALTH ( Reported) Atorvastatin Calcium 40 MG TABLET 0.5 TAB PO DAILY CHOLESTEROL (Reported) Augmentin (Augmentin 500-125 Tablet) 500 MG-125 MG TABLET 500 MG PO BID LUNG INFECTION Azithromycin 500 MG TABLET 1 TAB PO DAILY PNEUMONIA Cinnamon Bark (Cinnamon) 500 MG CAPSULE 1 CAP PO DAILY SUPPLEMENT (Reported) Cyanocobalamin (Vitamin B-12) 1,000 MCG TABLET 1 TAB PO DAILY VITAMIN SUPPORT (Reported) Docusate Sodium (Colace) 100 MG CAPSULE 1 CAP PO BID PRN CONSTIPATION . Finasteride 5 MG TABLET 1 TAB PO QPM PROSTATE (Reported) Furosemide 20 MG TABLET 3 TAB PO DAILY WATER RETENTION (Reported) Gabapentin 100 MG CAPSULE 1 CAP PO TID NERVE PAIN (Reported) Hydralazine HCl 25 MG TABLET 1 TAB PO TID BP (Reported) Insulin Lispro (Humalog) 100 UNIT/ML VIAL DM (Reported) Insulin-Lantus (Lantus) 100 UNIT/ML VIAL 28 UNITS SC QAM DM (Reported) Insulin-Lantus (Lantus) 100 UNIT/ML VIAL 33 UNITS SC QPM DM (Reported) Lactobacillus Acidophilus (Probiotic) 10 BILLION CELL CAPSULE 1 CAP PO DAILY GI (Reported) Magnesium Hydroxide (Milk Of Magnesia) 400 MG/5 ML ORAL.SUSP 5 ML PO DAILY NEEDED PRN CONSTIPATION . Metoprolol Tartrate 25 MG TABLET 0.5 TAB PO DAILY HEART/BP (Reported) Minoxidil 2.5 MG TABLET 2 TAB PO BID BP (Reported) Prednisone 20 MG TABLET 40 MG PO DAILY LUNG HEALTH Compliance With Home Meds: UNKNOWN Observation Initial Note - I have personally examined RANJAN JAMESON on 10/05/17 at 1134. 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 Psychosocial History Who Do You Live With? girlfriend Services at Home: None Primary Language: Luxembourgish ETOH Use: denies use Functional Ability ADLs Independent: dressing, eating, toileting, bathing. Ambulation: independent IADLs Independent: shopping, housework, finances, food prep, telephone, transportation , medication admin. Review of Systems Review of Systems Constitutional: Reports: see HPI. Exam & Diagnostic Data Last 24 Hrs of Vital Signs/I&O Vital Signs Date Time Temp Pulse Resp B/P B/P Pulse O2 O2 Flow FiO2 Mean Ox Delivery Rate 10/05 1111 98.6 67 15 139/69 99 Nasal 2.0L Cannula 10/05 0634 95 Nasal 2.0L Cannula 10/05 0634 97.7 73 20 125/64 95 Nasal 2.0L Cannula 10/05 0304 97.8 85 18 131/73 96 Room Air 10/05 0200 95 Room Air 10/05 0053 98.2 71 18 134/64 95 Room Air Intake & Output 10/05 1600 03/02 0800 10/05 0000 Intake Total 0 Output Total Balance 0 Intake, Oral 0 Patient 184 lb Weight Physical Exam General Appearance Alert, Oriented X3, Cooperative, No Acute Distress HEENT Atraumatic, PERRLA, EOMI, Mucous Membr. moist/pink Neck Supple, No JVD, No thryomegaly Cardiovascular 1/6 diastolic murmur Lungs Clear to Auscultation, Normal Air Movement Abdomen Normal Bowel Sounds, Soft, No Tenderness Extremities BLE 1+ pitting edema Last 24 Hrs of Labs/Desean: Laboratory Tests 10/05/17 0858: Troponin I 0.13 *H 10/05/17 0100: Anion Gap 13, Estimated GFR 34 L, BUN/Creatinine Ratio 22.6, Glucose 198 H, Calcium 10.4 H, Magnesium 2.4 H, Total Bilirubin 0.6, AST 28, ALT 39, Alkaline Phosphatase 69, Troponin I 0.13 *H, [id number] Pept 2400 H, Total Protein 6.9, Albumin 4.4, Globulin 2.5, Albumin/Globulin Ratio 1.8, D-Dimer High Sensitivty 651 H, CBC w Diff NO MAN DIFF REQ, RBC 4.01 L, MCV 79.2 L, MCH 26.6 L, MCHC 33.6, RDW 15.5 H, MPV 7.5, Gran % 77.6 H, Lymphocytes % 12.7 L, Monocytes % 8.6, Eosinophils % 0.6, Basophils % 0.5, Absolute Granulocytes 4.9, Absolute Lymphocytes 0.8 L, Absolute Monocytes 0.5, Absolute Eosinophils 0, Absolute Basophils 0 Diagnostic Data EKG Results NS HR 76 QTc 460 CXR Results FINDINGS: Cardiac leads overlie the chest. The lungs are well expanded. Persistent right infrahilar and left perihilar airspace opacities. Diffuse bronchial wall thickening. No pleural effusion or pneumothorax. The cardiomediastinal silhouette remains prominent. IMPRESSION: Similar appearance of right infrahilar and left perihilar airspace opacities. Diffuse bronchial wall thickening could represent an underlying small airways process or could be chronic. Assessment/Plan Assessment: Mr. Jameson is a 76-year-old male with a history of obesity, hypertension, dyslipidemia, diabetes mellitus, chronic kidney disease, anemia, aortic stenosis, carotid artery disease, moderate to severe concentric left ventricular hypertrophy, previously documented atrial fibrillation not on AC, acute diastolic heart failure discharged yesterday for CAP and acute on CHF who presents to ED for worsening shortness of breath Problem list: Acute hypoxic respiratory failure 2/2 Acute on chronic diastolic heart failure vs Aortic stenosis Type II [place] most likely 2/2 demand ischemia RADHA on CKD - stable Plan: * Placed on 23 hour observation * TRC/nebs PRN * continue oxygen supplementation with goal O2 sat > 92% * Serial troponin/ECG to rule out ACS * Cardiology consult * Pulmonology consult * Continue home medications: Lasix 60 mg, hydralazine 25 mg TID, atorvastatin 20 mg, ASA, metoprolol 12.5 mg * Prednisone 40 mg daily x 5 days * Resume Augmentin and azithromycin for total of 7 days, day 4 As Ranked By This Provider Problem List: 1. Elevated troponin 2. CHF exacerbation Core Measures/Misc (04/22) Acute Coronary Syndrome ACS Diagnosis: No Congestive Heart Failure Congestive Heart Failure Diagnosis No Cerebrovascular Accident CVA/TIA Diagnosis: No VTE (View Protocol) VTE Risk Factors Age>40 No Mechanical VTE Prophylaxis d/t N/A MechProphylax Ordered No VTE Pharm Prophylaxis d/t NA PharmProphylax ordered Sepsis (View protocol) Sepsis Present: No Addy Lew MD 10/05/17 1132: Observation Initial Note - I have personally examined RANJAN JAMESON on 10/05/17 at 1132. The disposition of RANJAN JAMESON is uncertain at this time and before a determination can be made, he requires a period of observation for the following reasons [CHF] Resident Review Statement Resident Statement: examined this patient, discussed with customer marketing intern, agreed with customer marketing intern, discussed with family Other Findings: Patient is a 76-year-old male past medical history of obesity, hypertension, dyslipidemia, diabetes, chronic kidney disease, anemia, aortic stenosis, cardiac disease,, moderate to severe concentric LVH history of atrial fibrillation, who was recently admitted to [facility] On October 01, 2017 to October 03, 2017 and treated for CHF/multifocal pneumonia. He was discharged yesterday afternoon.He did well at the home till evening.He denies any dyspnea on ground evening, but had shortness of breath while going up and down the stairs and especially when lying down flat on the bed.According to him he was also short of breath while lying flat in the hospital. He discharged home without oxygen. He came into the hospital because he was not able to sleep at night secondary to shortness of breath. ED course -vital signs temperature 98.2, pulse 71, respiratory rate 18, blood pressure 134/ 64, SPO2 95% on room air. Patient was given 2 L of oxygen afterwards he felt much better. On examination he was conscious cooperative, does not seems in short of breath, not using accessory muscle on the respiration , oral cavity normal, no JVD, bilateral decreased air entry, heart S1-S2 normal, abdomen soft distended bowel sounds positive, bilateral lower leg no pitting edema. Blood workup -hemoglobin 10.6, hematocrit 31.7, MCV 79.2, platelet count 177, Gas-X 77.6, lymphocytes 12.7,sodium 142, potassium 4.0, chloride 105, anion gap 13, BUN 43, creatinine 1.9, glucose 198, calcium 10.4, magnesium 2.4, AST 28, ALT 39, alkaline phosphatase 69, troponin I serial were 0.13(last one was 0.19), proBNP 2400(last was 4210), albumin 4.4. Chest x-ray shows similar appearance of right hilar and left perihilar airspace opacities, diffuse bronchial wall thickening query small airway process/chronic. 2D echo -normal left ventricular size, moderate concentric left ventricular hypertrophy,Moderate to severe aortic stenosis, normal left ventricular ejection fraction 55%, stage III diastolic dysfunction. Assessment and plan - Moderate to severe aortic stenosis leading to LVH and shortness of breath - * We will observe the patient to telemetry floor * Discussed with , advised to discuss with Dr. Sharma, about the possibility of intervention in regards to aortic stenosis. * Continue same dose of diuretics * we will continue same home medication as before. Chronic inflammation in the bronchial tree possibly secondary to pneumonia/ bronchitis * Discussed with Dr. Zamora, oxygen to keep oxygen saturation more than 92% * Use low-dose steroid tablet prednisone 40 mg for 5 days. Diet - Heart healthy diet with fluid restriction DVT prophylaxis -SIMON/heparin CODE STATUS -Full code Joshua Chris MD 10/05/17 2210: Attending Review Statement Attending Statement Attending Statement: examined this patient, discuss w/resident/PA/DOCUMENT CONTROL COORDINATOR, agreed w/resident/PA/DOCUMENT CONTROL COORDINATOR, discussed with family, reviewed EMR data (avail), discussed with nursing, discussed with case mgmt, reviewed images, amended to note Attending Assessment/Plan: The patient is a 76 yo male with h/o HTN, HL, DM2, CKD, anemia, , carotid disease, ?afib, diastolic CHF who was discharged 1 day ago after an admission for CAP/CHF who presented in the ED with c/o increased dyspnea, particularly with exertion at home. He had been tapered off of oxygen while previously in hospital and was ambulating with PT and to bathroom without difficulty at the time of discharge. He denied any palpitations, chest pain or other symptoms. He had eaten pasta with sauce before onset of dyspnea. In the ED it was unclear if this represented a cardiac or pulmonary cause. Physical Exam: VS: T 98.2, P 71, R 18, BP 134/65, PO 95% on RA on presentation, ? 99% on 2L HEENT: eyes- PERRLA, EOMI ricci- moist mucosa Neck: no JVD or bruits Chest: clear with diminished BS at bases Cor: RRR nl S1, S2 with 2/6 sys murm LSB Abd: BS+, soft, NT Ext: 1+ edema, pulses 2+ Neuro: alert & oriented x 3, non-focal exam Labs/Tests- as above Impression/Plan: #Dyspnea- primarily exertional- onset not long after discharge. Possible etiologies include bronchospasm/inflammatory process (resolving pneumonia), slight increase CHF (?increased LE edema). Doubt PE. Plan: Will bring in as observation to telemetry floor. Check serial troponin I levels. Pulmonary and Cardiology consults appreciated. Follow pulse ox closely. Consider LE venous US tomorrow. DVT prophylaxis. Consider cardiac cath as per Dr. Leary. #Pneumonia- s/p recent pneumonia- no new infiltrates on CXR, no fever, chills, etc. May have mild inflammatory component as per pulmonary. Plan: Agree with trial of prednisone with taper as per Dr. Zamora. Continue oral antibiotics to complete course originally prescribed. #Preserved Ejection Fraction CHF- h/o this. Now with increased LE edema. Plan: Continue Lasix. Follow I/O's and daily weights. #HL- on Atorvastatin. Plan: Continue Atorvastatin. #H/O /Afib- ECHO recent. Plan: Consider further evaluation with cath. Continue Metoprolol. #DM2- sugars have been good. Plan: Continue to follow glucoscans and sliding scale insulin. #CKD- Cr 1.9 - similar to prior. Plan: Will monitor on Lasix.
--- NOTE | 2017-10-05 12:08 | PN- Pulmonary ---
Subjective HPI/Critical Care Issues: Patient was seen yesterday and was discharged to home when the evening came he became short of breath with exertion required propping himself up with extra pillows his leg edema slightly worsened however not significant. His BNP is 2400 and his troponin is .13. Objective Current Medications: Current Medications Sig/Leonila Start time Last Medication Dose Route Stop Time Status Admin Allopurinol 100 MG DAILY 10/05 1000 AC 10/05 PO 1126 Amoxicillin/ 500 MG BID 10/05 1000 AC 10/05 Clavulanate Potassium PO 1126 Aspirin 81 MG DAILY 10/05 1000 AC 10/05 PO 1126 Atorvastatin Calcium 20 MG DAILY 10/05 1000 AC 10/05 PO 1126 Azithromycin 500 MG DAILY 10/05 1000 AC 10/05 PO 1126 Finasteride 5 MG QPM 10/05 2200 AC PO Furosemide 0 .STK-MED ONE 10/05 1130 DC PO Furosemide 60 MG DAILY 10/05 1000 AC 10/05 PO 1126 Gabapentin 100 MG TID 10/05 1000 AC 10/05 PO 1126 Hydralazine HCl 25 MG TID 10/05 1000 AC 10/05 PO 1126 Insulin Detemir 28 UNITS DAILY 10/05 1000 AC 10/05 SC 1126 Metoprolol Tartrate 12.5 MG DAILY 10/05 1000 AC 10/05 PO 1126 Minoxidil 5 MG BID 10/05 1000 AC 10/05 PO 1126 Prednisone 0 .STK-MED ONE 10/05 1156 DC PO Prednisone 40 MG DAILY 10/05 1130 AC 03/ PO 03/05 1001 1154 Vital Signs & I&O Last 24 Hrs of Vitals and I&O: Vital Signs Date Time Temp Pulse Resp B/P B/P Pulse O2 O2 Flow FiO2 Mean Ox Delivery Rate 10/05 1147 Nasal 2.0L Cannula 10/05 1126 67 139/69 10/05 1126 67 139/69 10/05 1111 98.6 67 15 139/69 99 Nasal 2.0L Cannula 10/05 0634 95 Nasal 2.0L Cannula 10/05 0634 97.7 73 20 125/64 95 Nasal 2.0L Cannula 10/05 0304 97.8 85 18 131/73 96 Room Air 03 0200 95 Room Air 10/05 0053 98.2 71 18 134/64 95 Room Air Intake & Output 10/05 1600 03/02 0800 03/02 0000 Intake Total 0 Output Total Balance 0 Intake, Oral 0 Patient 184 lb Weight Exam Other Physical Findings: Generally - Awake, alert and comfortable without distress Head and neck - normocephalic, atraumatic, EOMI grossly intact Cardiovascular - S1, S2, Lungs -improved rhonchi Abdomen - Bowel sounds positive, soft, non-tender Extremities - 1+ b/l edema Results Last 24 Hrs of Lab Results: Laboratory Tests 10/05/17 0858: Troponin I 0.13 *H 10/05/17 0100: Anion Gap 13, Estimated GFR 34 L, BUN/Creatinine Ratio 22.6, Glucose 198 H, Calcium 10.4 H, Magnesium 2.4 H, Total Bilirubin 0.6, AST 28, ALT 39, Alkaline Phosphatase 69, Troponin I 0.13 *H, [id number] Pept 2400 H, Total Protein 6.9, Albumin 4.4, Globulin 2.5, Albumin/Globulin Ratio 1.8, D-Dimer High Sensitivty 651 H, CBC w Diff NO MAN DIFF REQ, RBC 4.01 L, MCV 79.2 L, MCH 26.6 L, MCHC 33.6, RDW 15.5 H, MPV 7.5, Gran % 77.6 H, Lymphocytes % 12.7 L, Monocytes % 8.6, Eosinophils % 0.6, Basophils % 0.5, Absolute Granulocytes 4.9, Absolute Lymphocytes 0.8 L, Absolute Monocytes 0.5, Absolute Eosinophils 0, Absolute Basophils 0 Impression/Plan Impression/Plan Impression/Plan: Patient was seen yesterday and was discharged to home when the evening came he became short of breath with exertion required propping himself up with extra pillows his leg edema slightly worsened however not significant. His BNP is 2400 and his troponin is .13. Impression 76 year old man. Consultation for abn ct, dyspnea. Hx of , CAD, CKD, a.fib, diastolic chf, presents with dyspnea. ECHO 04/2017 - stage 2 diastolic dysfunction, moderate . CT multiple foci of airspace disease. No leukocytosis, No fevers. Differential diagnosis for his pulmonary presentation is broad including infectious, inflammatory or cardiac. Plan -empiric steroids 40mg po daily for 5 days to assist with any inflammatory process -f/u cardiology, diuresis, no stage 3 diastolic dysfunction -ins/outs, daily weights -s/p abx -ac for afib -bronchoscopy at this point is premature, will continue to follow clinical course -TRC/Nebs DVT prophylaxis at all times
[2017-10-05] MEDS ORDERED: AUGMENTIN 500-1 EACH PO (13:41)
[2017-10-05] MEDS ORDERED: PREDNISONE20 M1 PO (13:41)
--- NOTE | 2017-10-05 13:43 | Patient Discharge Instructions ---
Discharge Instructions General Discharge Information You were seen/treated for: Follow up with the greens cutter within 1 week upon discharge Follow up with your PCP upon discharge Follow up with your project management director within 1 week upon discharge Continue oxygen supplementation as needed You had these procedures: NONE Diet Recommended Diet: Heart Healthy Activity Other activity limits: As tolerated Acute Coronary Syndrome Inclusion Criteria At DC or during hospital stay patient has or had the following: ACS DIAGNOSIS No Discharge Core Measures Meds if any: Prescribed or Continued at Discharge Meds if any: NOT Prescribed or Continued at Discharge Congestive Heart Failure Inclusion Criteria At DC or during hospital stay patient has or had the following: CHF DIAGNOSIS No Discharge Core Measures Meds if any: Prescribed or Continued at Discharge Meds if any: NOT Prescribed or Continued at Discharge Cerebrovascular accident Inclusion Criteria At DC or during hospital stay patient has or had the following: CVA/TIA Diagnosis No Discharge Core Measures Meds if any: Prescribed or Continued at Discharge Meds if any: NOT Prescribed or Continued at Discharge Venous thromboembolism Inclusion Criteria VTE Diagnosis No VTE Type NONE VTE Confirmed by (Test) NONE Discharge Core Measures - Per Current guidelines, there needs to be overlap - treatment for the first 5 days of Warfarin therapy. - If discharged on Warfarin prior to 5 days of - overlap therapy, the patient will need to be - assessed for post discharge needs including - *Post discharge parental anticoagulation - *Warfarin and/or parental anticoagulation education - *Follow up date to check INR post discharge At least 5 days overlap therapy as Inpatient No Meds if any: Prescribed or Continued at Discharge Note: Overlap Therapy is Warfarin and Anticoagulant Meds if any: NOT Prescribed or Continued at Discharge
[2017-10-05 14:07] VITALS: BP 152/76
--- NOTE | 2017-10-05 15:49 | Cons- Cardiology ---
General Information and HPI Consulting Request Date of Consult: 10/05/17 Requested By: Joshua Chris MD Reason for Consult: Shortness of breath. Source of Information: patient, family, old records Exam Limitations: no limitations History of Present Illness: Mr. Britton Jameson is a 76-year-old male with a history of obesity, hypertension, dyslipidemia, diabetes mellitus, chronic kidney disease, anemia, aortic stenosis, carotid artery disease, moderate to severe concentric left ventricular hypertrophy, previously documented atrial fibrillation for which he was fully anticoagulated for a period of time, and previous acute diastolic heart failure who was recently hospitalized here (10/01-10/04/2017) for worsening shortness of breath of uncertain etiology with treatment for both potential cardiac and pulmonary sources with improvement in his overall clinical status, but who returned to the ED via ambulance last evening after experiencing worsening shortness of breath and orthopnea, despite antimicrobial therapy, steroids, and an increased dosage of his diuretic. His last echocardiogram was performed on 10/02/2017 and revealed a normal size left ventricle with moderate concentric left ventricular hypertrophy, normal systolic function with an estimated EF of 55%, a right ventricle of normal size and function, normal right atrial size, mildly dilated left atrium, age-related valvular changes, no pericardial effusion, a mildly dilated ascending aorta, and a dilated inferior vena cava. The Doppler portion of the study revealed evidence of moderate to severe aortic stenosis (peak velocity 3.73 m/s, peak gradient 56 mmHg, mean gradient 34 mmHg), trace aortic, trace mitral, trace tricuspid, mild pulmonic regurgitation, mild pulmonary hypertension (estimated PA systolic pressure 43 mmHg), and a restrictive left ventricular inflow pattern consistent with stage 3 diastolic dysfunction. Allergies/Medications Allergies: Coded Allergies: hydrocodone (NAUSEA 04/11/17) Home Med List: Allopurinol 100 MG TABLET 1 TAB PO DAILY GOUT (Reported) Amoxicillin/Potassium Clav (Augmentin 875-125 Tablet) 875 MG-125 MG TABLET 1 TAB PO BID PNEUMONIA Aspirin (Children's Aspirin) 81 MG TAB.CHEW 1 TAB PO DAILY HEART HEALTH ( Reported) Atorvastatin Calcium 40 MG TABLET 0.5 TAB PO DAILY CHOLESTEROL (Reported) Augmentin (Augmentin 500-125 Tablet) 500 MG-125 MG TABLET 500 MG PO BID LUNG INFECTION Azithromycin 500 MG TABLET 1 TAB PO DAILY PNEUMONIA Cinnamon Bark (Cinnamon) 500 MG CAPSULE 1 CAP PO DAILY SUPPLEMENT (Reported) Cyanocobalamin (Vitamin B-12) 1,000 MCG TABLET 1 TAB PO DAILY VITAMIN SUPPORT (Reported) Docusate Sodium (Colace) 100 MG CAPSULE 1 CAP PO BID PRN CONSTIPATION . Finasteride 5 MG TABLET 1 TAB PO QPM PROSTATE (Reported) Furosemide 20 MG TABLET 3 TAB PO DAILY WATER RETENTION (Reported) Gabapentin 100 MG CAPSULE 1 CAP PO TID NERVE PAIN (Reported) Hydralazine HCl 25 MG TABLET 1 TAB PO TID BP (Reported) Insulin Lispro (Humalog) 100 UNIT/ML VIAL DM (Reported) Insulin-Lantus (Lantus) 100 UNIT/ML VIAL 28 UNITS SC QAM DM (Reported) Insulin-Lantus (Lantus) 100 UNIT/ML VIAL 33 UNITS SC QPM DM (Reported) Lactobacillus Acidophilus (Probiotic) 10 BILLION CELL CAPSULE 1 CAP PO DAILY GI (Reported) Magnesium Hydroxide (Milk Of Magnesia) 400 MG/5 ML ORAL.SUSP 5 ML PO DAILY NEEDED PRN CONSTIPATION . Metoprolol Tartrate 25 MG TABLET 0.5 TAB PO DAILY HEART/BP (Reported) Minoxidil 2.5 MG TABLET 2 TAB PO BID BP (Reported) Prednisone 20 MG TABLET 40 MG PO DAILY LUNG HEALTH Review of Systems Review of Systems: 14 point system review was obtained and was noncontributory, other than as above. 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 Psychosocial History Who Do You Live With? girlfriend Services at Home: None Primary Language: Romansh Smoking Status: Never Smoked ETOH Use: denies use Functional Ability ADLs Independent: dressing, eating, toileting, bathing. Ambulation: independent IADLs Independent: shopping, housework, finances, food prep, telephone, transportation , medication admin. Exam & Diagnostic Data Vital Signs and I&O Vital Signs Date Time Temp Pulse Resp B/P B/P Pulse O2 O2 Flow FiO2 Mean Ox Delivery Rate 10/05 1413 98 Nasal 2.0L Cannula 10/05 1407 98.3 54 22 152/76 98 Nasal 2.0L Cannula 10/05 1314 98.4 57 18 114/63 98 10/05 1147 Nasal 2.0L Cannula 10/05 1126 67 139/69 03/ 1126 67 139/69 10/05 1111 98.6 67 15 139/69 99 Nasal 2.0L Cannula 10/05 0634 95 Nasal 2.0L Cannula 10/05 0634 97.7 73 20 125/64 95 Nasal 2.0L Cannula 10/05 0304 97.8 85 18 131/73 96 Room Air 10/05 0200 95 Room Air 10/05 0053 98.2 71 18 134/64 95 Room Air Intake & Output 10/05 1600 10/05 0800 10/05 0000 10/04 1600 10/04 0800 10/04 0000 Intake Total 222 0 Output Total Balance 222 0 Intake, Oral 222 0 Patient 200 lb Weight Weight Bed scale Measurement Method Physical Exam: Well-developed, overweight elderly male in no acute distress with nasal oxygen in place. Vital signs: See above. HEENT: Normocephalic, atraumatic, EOMI, slightly dry mucous membranes. Neck: No JVD, no bruits. Lungs: Decreased breath sounds bilaterally with a few bibasilar crackles. Heart: S1, S2 (diminished) with grade 2/6 systolic ejection type murmur best heard near the base. No gallop or rub appreciated. Abdomen: Soft, nontender, positive bowel sounds. Extremities: Trace lower extremity edema. Labs/Desean Results: Laboratory Tests 10/05 10/05 0858 0100 Chemistry Sodium (137 - 145 mmol/L) 142 Potassium (3.5 - 5.1 mmol/L) 4.0 Chloride (98 - 107 mmol/L) 105 Carbon Dioxide (22 - 30 mmol/L) 23 Anion Gap (5 - 16) 13 BUN (9 - 20 mg/dL) 43 H Creatinine (0.7 - 1.2 mg/dL) 1.9 H Estimated GFR (>60 ml/min) 34 L BUN/Creatinine Ratio (7 - 25 %) 22.6 Glucose (65 - 99 mg/dL) 198 H Calcium (8.4 - 10.2 mg/dL) 10.4 H Magnesium (1.6 - 2.3 mg/dL) 2.4 H Total Bilirubin (0.2 - 1.3 mg/dL) 0.6 AST (17 - 59 U/L) 28 ALT (21 - 72 U/L) 39 Alkaline Phosphatase (< 127 U/L) 69 Troponin I (<0.11 ng/ml) 0.13 *H 0.13 *H [id number]-Apbrhzcgksa Pept (<125 pg/mL) 2400 H Total Protein (6.3 - 8.2 g/dL) 6.9 Albumin (3.5 - 5.0 g/dL) 4.4 Globulin (1.9 - 4.2 gm/dL) 2.5 Albumin/Globulin Ratio (1.1 - 2.2 %) 1.8 Coagulation D-Dimer High Sensitivty (0 - 243 ng/ml) 651 H Hematology CBC w Diff NO MAN DIFF REQ WBC (4.8 - 10.8 /CUMM) 6.3 RBC (4.70 - 6.10 /CUMM) 4.01 L Hgb (14.0 - 18.0 G/DL) 10.6 L Hct (42 - 52 %) 31.7 L MCV (80.0 - 94.0 FL) 79.2 L MCH (27.0 - 31.0 PG) 26.6 L MCHC (33.0 - 37.0 G/DL) 33.6 RDW (11.5 - 14.5 %) 15.5 H Plt Count (130 - 400 /CUMM) 177 MPV (7.4 - 10.4 FL) 7.5 Gran % (42.2 - 75.2 %) 77.6 H Lymphocytes % (20.5 - 51.1 %) 12.7 L Monocytes % (1.7 - 9.3 %) 8.6 Eosinophils % (0 - 5 %) 0.6 Basophils % (0.0 - 2.0 %) 0.5 Absolute Granulocytes (1.4 - 6.5 /CUMM) 4.9 Absolute Lymphocytes (1.2 - 3.4 /CUMM) 0.8 L Absolute Monocytes (0.10 - 0.60 /CUMM) 0.5 Absolute Eosinophils (0.0 - 0.7 /CUMM) 0 Absolute Basophils (0.0 - 0.2 /CUMM) 0 Diagnostic Data EKG Results 10/05/2017: Sinus rhythm, first-degree AV block, leftward axis, and probable LVH with repolarization abnormalities. CXR Results 10/05/2017: Cardiac leads overlie the chest. The lungs are well expanded. Persistent right infrahilar and left perihilar airspace opacities. Diffuse bronchial wall thickening. No pleural effusion or pneumothorax. The cardiomediastinal silhouette remains prominent. Other Results Chest CT 10/01/2017: There are multiple ill-defined foci of airspace disease involving both lungs. These findings most likely represent a manifestation of pneumonia. Small bilateral pleural effusions layering posteriorly. No pneumothorax. The trachea and major airways are patent. The chest wall is grossly intact. This was portions of the thoracic outlet including the thyroid gland are normal. Limited visualization of the upper abdomen reveals no abnormal finding. Assessment/Plan Assessment/Plan [id number] w/ hx obesity, HTN, HLD, DM, CKD, anemia, , carotid artery disease, moderate concentric LVH, previous AF for which he was previously anticoagulated, and previous acute HFpEF who was recently hospitalized here (10/01-10/04/2017) for worsening SOB w/ Rx for both potential cardiac and pulmonary etiologies w/ improvement in his overall clinical status, but who returned to the ED via ambulance last evening after experiencing worsening SOB and orthopnea, despite antimicrobial therapy, steroids, and an increased dosage of his diuretic. Recommendations: * Admit to telemetry, will troponins, follow-up ECGs. * Continue present cardiac regimen. * Not convinced he has recently been in atrial fibrillation, so hold off on full anticoagulation. * Continue 02, steroids, antibiotics, etc. as per pulmonary medicine. * Will consider cardiac catheterization to exclude CAD and confirm degree of . * DVT prophylaxis. Consult Acknowledgment - Thank you for your consult request.
[2017-10-05 15:57] VITALS: BP 130/68
[2017-10-06 00:28] VITALS: BP 144/64
[2017-10-06 06:55] VITALS: BP 142/68
--- NOTE | 2017-10-06 08:22 | PN-Observation ---
See Addendum Observation Note Observation Note _ I have personally examined RANJAN TAPIA. him disposition is uncertain at this time. Before a determination can be made, he requires continued observation for the following reasons [acute hypoxic respiratory failure]. Assessment/Plan Medical Assessment: Mr. Tapia is a 76-year-old male with a history of obesity, hypertension, dyslipidemia, diabetes mellitus, chronic kidney disease, anemia, aortic stenosis, carotid artery disease, moderate to severe concentric left ventricular hypertrophy, previously documented atrial fibrillation not on AC, acute diastolic heart failure discharged yesterday for CAP and acute on CHF who presents to ED for worsening shortness of breath Problem list: Acute hypoxic respiratory failure 2/2 Acute on chronic diastolic heart failure vs Aortic stenosis Type II MS most likely 2/2 demand ischemia RADHA on CKD - stable Plan: * Placed on 23 hour observation * TRC/nebs PRN * continue oxygen supplementation with goal O2 sat > 92% * Serial troponin/ECG ruled out ACS * Follow cardiology recommendation * Follow pulmonology recommendation * Continue home medications: , hydralazine 25 mg TID, atorvastatin 20 mg, ASA, metoprolol 12.5 mg * Switch Lasix to 60 mg IV twice daily * Prednisone 40 mg daily x 5 days * Continue Augmentin and azithromycin for total of 7 days, day 4/7 Problem List: 1. CHF exacerbation 2. CAP (community acquired pneumonia) Subjective Follow-up For: 1. Hypertension 2. Diabetes mellitus 3. Chronic kidney disease 4. Moderate to severe aortic stenosis 5. possible acute exacerbation. Persistent desaturation with ambulation Subjective: Patient was seen and examined at bedside, still complains of shortness of breath , oxygen saturation is normal at rest, noticed to desaturate on ambulation to the 80s, denies fever, chills, palpitation, sweating, chest pain Review of Systems Constitutional: Reports: see HPI. Objective Last 24 Hrs of Vital Signs/I&O Vital Signs Date Time Temp Pulse Resp B/P B/P Pulse O2 O2 Flow FiO2 Mean Ox Delivery Rate 10/06 1214 22 89 Room Air 10/06 1214 18 95 Room Air 10/06 0852 83 142/68 10/06 0831 83 142/68 10/06 0655 98.4 83 22 142/68 96 Nasal Cannula 10/06 0028 99.0 82 20 144/64 96 Nasal Cannula 10/06 0000 98 Nasal 2.0L Cannula 10/05 2139 75 142/68 10/05 1559 63 130/68 10/05 1557 63 130/68 10/05 1413 98 Nasal 2.0L Cannula 10/05 1407 98.3 54 22 152/76 98 Nasal 2.0L Cannula 10/05 1314 98.4 57 18 114/63 98 Intake & Output 10/06 1600 10/06 0800 10/06 0000 Intake Total 400 1062 Output Total 325 Balance 75 1062 Intake, Oral 400 1062 Output, Urine 325 Patient 199 lb Weight Weight Bed scale Measurement Method Physical Exam General Appearance: Alert, Oriented X3, Cooperative, No Acute Distress HEENT: Atraumatic, PERRLA, EOMI, Mucous Membr. moist/pink Neck: Supple, No JVD Cardiovascular: Normal S1, Normal S2, No Murmurs Lungs: scattered raled bilateral Abdomen: Normal Bowel Sounds, Soft, No Tenderness Neurological: Normal Speech, Strength at 5/5 X4 Ext, Normal Tone, Sensation Intact Extremities: 1 + pitting edema
--- NOTE | 2017-10-06 11:29 | PN- Cardiology ---
Subjective Subjective: The patient reports that he is feeling somewhat better today, however he still has some shortness of breath. His oxygen saturation is normal at rest, but was noted to drop into the high 80s with ambulation. No chest pain. No palpitations. No diaphoresis. Objective Vital Signs and I&Os Vital Signs Date Time Temp Pulse Resp B/P B/P Pulse O2 O2 Flow FiO2 Mean Ox Delivery Rate 10/06 0852 83 142/68 10/06 0831 83 142/68 10/06 0655 98.4 83 22 142/68 96 Nasal Cannula 10/06 0028 99.0 82 20 144/64 96 Nasal Cannula 10/06 0000 98 Nasal 2.0L Cannula 10/05 2139 75 142/68 10/05 1559 63 130/68 10/05 1557 63 130/68 10/05 1413 98 Nasal 2.0L Cannula 10/05 1407 98.3 54 22 152/76 98 Nasal 2.0L Cannula 10/05 1314 98.4 57 18 114/63 98 10/05 1147 Nasal 2.0L Cannula 10/05 1126 67 139/69 10/05 1126 67 139/69 Intake & Output 10/06 1600 10/06 0800 10/06 0000 10/05 1600 10/05 0800 10/05 0000 Intake Total 400 1062 222 0 Output Total 325 Balance 75 1062 222 0 Intake, Oral 400 1062 222 0 Output, Urine 325 Patient 199 lb 200 lb Weight Weight Bed scale Bed scale Measurement Method Physical Exam: Gen: NAD HEENT: normal Lungs: Scattered rales bilaterally, normal resp. effort Heart: RRR, S1, S2, 3 out of 6 systolic Abdomen: Soft, nontender, no masses Extremities: 1+ edema Neuro: Alert and oriented x 3, cranial nerves intact Current Medications: Current Medications Sig/Leonila Start time Last Medication Dose Route Stop Time Status Admin Allopurinol 100 MG DAILY 10/05 1000 AC 10/06 PO 0834 Amoxicillin/ 500 MG BID 10/05 1000 AC 10/06 Clavulanate Potassium PO 0833 Aspirin 81 MG DAILY 10/05 1000 AC 10/06 PO 0832 Atorvastatin Calcium 20 MG DAILY 10/05 1000 AC 10/06 PO 1107 Azithromycin 500 MG DAILY 10/05 1000 AC 10/06 PO 0830 Finasteride 5 MG QPM 10/05 2200 AC 10/05 PO 2138 Furosemide 0 .STK-MED ONE 10/05 1130 DC PO Furosemide 60 MG DAILY 10/05 1000 AC 10/06 PO 0831 Gabapentin 100 MG TID 10/05 1000 AC 10/06 PO 0829 Hydralazine HCl 25 MG TID 10/05 1000 AC 10/06 PO 0852 Insulin Aspart 0 TIDAC 10/06 0800 AC 10/06 SC 0829 Insulin Aspart 2 UNITS .STK-MED ONE 10/05 1805 DC SC 10/05 1806 Insulin Detemir 28 UNITS DAILY 10/05 1000 AC 10/06 SC 0828 Metoprolol Tartrate 12.5 MG DAILY 10/05 1000 AC 10/06 PO 0831 Minoxidil 5 MG BID 10/05 1000 AC 10/06 PO 0833 Prednisone 0 .STK-MED ONE 10/05 1156 DC PO Prednisone 40 MG DAILY 10/05 1130 AC 10/06 PO 03/05 1001 0831 Zolpidem Tartrate 5 MG ONCE ONE 10/05 2100 DC 10/05 PO 10/05 2101 2138 Results Last 48 Hrs of Labs/Mics: Laboratory Tests 10/05/17 0858: Troponin I 0.13 *H 10/05/17 0100: Anion Gap 13, Estimated GFR 34 L, BUN/Creatinine Ratio 22.6, Glucose 198 H, Calcium 10.4 H, Magnesium 2.4 H, Total Bilirubin 0.6, AST 28, ALT 39, Alkaline Phosphatase 69, Troponin I 0.13 *H, Lod-D-Nwklnuyatsh Pept 2400 H, Total Protein 6.9, Albumin 4.4, Globulin 2.5, Albumin/Globulin Ratio 1.8, D-Dimer High Sensitivty 651 H, CBC w Diff NO MAN DIFF REQ, RBC 4.01 L, MCV 79.2 L, MCH 26.6 L, MCHC 33.6, RDW 15.5 H, MPV 7.5, Gran % 77.6 H, Lymphocytes % 12.7 L, Monocytes % 8.6, Eosinophils % 0.6, Basophils % 0.5, Absolute Granulocytes 4.9, Absolute Lymphocytes 0.8 L, Absolute Monocytes 0.5, Absolute Eosinophils 0, Absolute Basophils 0 Recent Imaging Studies: Chest x-ray: Similar appearance of right infrahilar and left perihilar airspace opacities. Diffuse bronchial wall thickening could represent an underlying small airways process or could be chronic. Assessment/Plan Assessment/Plan Assessment: 1. Hypertension 2. Diabetes mellitus 3. Chronic kidney disease 4. Moderate to severe aortic stenosis 5. Chronic half-pack, with possible acute exacerbation. Persistent desaturation with ambulation Plan: * Recommend diuresis with IV Lasix, 60 mg every 12 hours * Monitor input and output with daily weights * Check basic metabolic profile daily * Possible discharge tomorrow if clinically improved Continue telemetry? Yes
--- NOTE | 2017-10-06 11:39 | PN- Pulmonary ---
Subjective HPI/Critical Care Issues: Patient seen and examined this morning. He appears to be doing much better and feels well on room air. Objective Current Medications: Current Medications Sig/Leonila Start time Last Medication Dose Route Stop Time Status Admin Allopurinol 100 MG DAILY 10/05 1000 AC 10/06 PO 0834 Amoxicillin/ 500 MG BID 10/05 1000 AC 10/06 Clavulanate Potassium PO 0833 Aspirin 81 MG DAILY 10/05 1000 AC 10/06 PO 0832 Atorvastatin Calcium 20 MG DAILY 10/05 1000 AC 10/06 PO 1107 Azithromycin 500 MG DAILY 10/05 1000 AC 10/06 PO 0830 Finasteride 5 MG QPM 10/05 2200 AC 10/05 PO 2138 Furosemide 60 MG DAILY 10/05 1000 AC 10/06 PO 0831 Gabapentin 100 MG TID 10/05 1000 AC 10/06 PO 0829 Hydralazine HCl 25 MG TID 10/05 1000 AC 10/06 PO 0852 Insulin Aspart 0 TIDAC 10/06 0800 AC 10/06 SC 0829 Insulin Aspart 2 UNITS .STK-MED ONE 10/05 1805 DC SC 10/05 1806 Insulin Detemir 28 UNITS DAILY 10/05 1000 AC 10/06 SC 0828 Metoprolol Tartrate 12.5 MG DAILY 10/05 1000 AC 10/06 PO 0831 Minoxidil 5 MG BID 10/05 1000 AC 10/06 PO 0833 Prednisone 0 .STK-MED ONE 10/05 1156 DC PO Prednisone 40 MG DAILY 10/05 1130 AC 10/06 PO 03/05 1001 0831 Zolpidem Tartrate 5 MG ONCE ONE 10/05 2100 DC 10/05 PO 10/05 2101 2138 Vital Signs & I&O Last 24 Hrs of Vitals and I&O: Vital Signs Date Time Temp Pulse Resp B/P B/P Pulse O2 O2 Flow FiO2 Mean Ox Delivery Rate 10/06 0852 83 142/68 10/06 0831 83 142/68 03 0655 98.4 83 22 142/68 96 Nasal Cannula 10/06 0028 99.0 82 20 144/64 96 Nasal Cannula 10/06 0000 98 Nasal 2.0L Cannula 10/05 2139 75 142/68 10/05 1559 63 130/68 10/05 1557 63 130/68 10/05 1413 98 Nasal 2.0L Cannula 10/05 1407 98.3 54 22 152/76 98 Nasal 2.0L Cannula 10/05 1314 98.4 57 18 114/63 98 10/05 1147 Nasal 2.0L Cannula Intake & Output 10/06 1600 10/06 0800 10/06 0000 Intake Total 400 1062 Output Total 325 Balance 75 1062 Intake, Oral 400 1062 Output, Urine 325 Patient 199 lb Weight Weight Bed scale Measurement Method Exam Other Physical Findings: Generally - Awake, alert and comfortable without distress Head and neck - normocephalic, atraumatic, EOMI grossly intact Cardiovascular - S1, S2, Lungs -improved rhonchi Abdomen - Bowel sounds positive, soft, non-tender Extremities - trace b/l edema Impression/Plan Impression/Plan Impression/Plan: Impression 76 year old man. Consultation for abn ct, dyspnea. Hx of , CAD, CKD, a.fib, diastolic chf, presents with dyspnea. ECHO 04/2017 - stage 2 diastolic dysfunction, moderate . CT multiple foci of airspace disease. No leukocytosis, No fevers. Differential diagnosis for his pulmonary presentation is broad including infectious, inflammatory or cardiac. Plan -lasix, ins/outs -empiric steroids 40mg po daily for 5 days to assist with any inflammatory process -f/u cardiology, diuresis, no stage 3 diastolic dysfunction -ins/outs, daily weights -s/p abx -ac for afib -bronchoscopy at this point is premature, will continue to follow clinical course -TRC/Nebs DVT prophylaxis at all times
[2017-10-06 14:00] VITALS: BP 136/72
[2017-10-06 15:26] VITALS: BP 18/64
[2017-10-06 23:00] VITALS: BP 128/62
[2017-10-07 06:00] VITALS: BP 124/72
[2017-10-07 07:56] VITALS: BP 124/72
--- NOTE | 2017-10-07 08:23 | PN- Housestaff ---
Mukesh Guzman 10/07/17 0822: Subjective Follow-up For: Acute hypoxic respiratory failure 2/2 Acute on chronic diastolic heart failure vs Aortic stenosis Type II [place] most likely 2/2 demand ischemia RADHA on CKD - stable Subjective: No complaints or acute events overnight Review of Systems Constitutional: Reports: see HPI. Objective Last 24 Hrs of Vital Signs/I&O Vital Signs Date Time Temp Pulse Resp B/P B/P Pulse O2 O2 Flow FiO2 Mean Ox Delivery Rate 10/07 0756 58 124/72 03/ 0754 58 124/72 /04 0600 97.8 58 18 124/72 95 03/ 0000 96 Nasal 2.0L Cannula 10/06 2300 98.7 60 20 128/62 99 03 2159 74 128/60 10/06 1552 90 118/64 10/06 1526 98.7 66 20 18/64 98 Nasal 2.0L Cannula 10/06 1400 98.8 90 20 136/72 96 10/06 1214 22 89 Room Air 10/06 1214 18 95 Room Air Intake & Output 10/07 1600 10/07 0800 / 0000 Intake Total 250 Output Total 1300 650 Balance -1050 -650 Intake, Oral 250 Output, Urine 1300 650 Patient 194 lb Weight Physical Exam General Appearance: Alert, Oriented X3, Cooperative, No Acute Distress, on 2LNC Cardiovascular: Regular Rate, Normal S1, Normal S2, No Murmurs Lungs: Clear to Auscultation, Normal Air Movement Abdomen: Normal Bowel Sounds, Soft, No Tenderness Extremities: No Edema Current Medications: Current Medications Sig/Leonila Start time Last Medication Dose Route Stop Time Status Admin Allopurinol 100 MG DAILY 10/05 1000 AC 10/07 PO 0755 Amoxicillin/ 500 MG BID 10/05 1000 AC 10/07 Clavulanate Potassium PO 0756 Aspirin 81 MG DAILY 10/05 1000 AC 10/07 PO 0755 Atorvastatin Calcium 20 MG DAILY 10/05 1000 AC 10/07 PO 0756 Azithromycin 500 MG DAILY 10/05 1000 AC 10/07 PO 0756 Finasteride 5 MG QPM 10/05 2200 AC 10/06 PO 2159 Furosemide 60 MG 7:30 AM, & 4:30 PM 10/06 1630 AC 10/07 IV 0753 Furosemide 60 MG DAILY 10/05 1000 DC 10/06 PO 0831 Gabapentin 100 MG TID 10/05 1000 AC 10/07 PO 0754 Hydralazine HCl 25 MG TID 10/05 1000 AC 10/07 PO 0756 Insulin Aspart 0 TIDAC 10/06 0800 AC 10/07 SC 0753 Insulin Detemir 28 UNITS DAILY 10/05 1000 AC 10/07 SC 0753 Metoprolol Tartrate 12.5 MG DAILY 10/05 1000 AC 10/07 PO 0754 Minoxidil 5 MG BID 10/05 1000 AC 10/07 PO 0754 Prednisone 40 MG DAILY 10/05 1130 AC 10/07 PO 10/08 1001 0755 Zolpidem Tartrate 5 MG AT BEDTIME 10/06 2200 AC 10/06 PO 2159 Last 24 Hrs of Lab/Desean Results Last 24 Hrs of Labs/Mics: Laboratory Tests 10/07/17 0615: Anion Gap 13, Estimated GFR 37 L, BUN/Creatinine Ratio 27.2 H, CBC w Diff NO MAN DIFF REQ, RBC 3.71 L, MCV 80.5, MCH 26.9 L, MCHC 33.4, RDW 15.3 H, MPV 7.8, Gran % 73.2, Lymphocytes % 17.3 L, Monocytes % 8.5, Eosinophils % 0.5, Basophils % 0.5, Absolute Granulocytes 6.3, Absolute Lymphocytes 1.5, Absolute Monocytes 0.7 H, Absolute Eosinophils 0, Absolute Basophils 0 Orders EKG Findings: NSR, first deg AVB HR 64 Assessment/Plan Assessment: Mr. Jameson is a 76-year-old male with a history of obesity, hypertension, dyslipidemia, diabetes mellitus, chronic kidney disease, anemia, aortic stenosis, carotid artery disease, moderate to severe concentric left ventricular hypertrophy, previously documented atrial fibrillation not on AC, acute diastolic heart failure discharged yesterday for CAP and acute on CHF who presents to ED for worsening shortness of breath Problem list: Acute hypoxic respiratory failure 2/2 Acute on chronic diastolic heart failure vs Aortic stenosis Type II [place] most likely 2/2 demand ischemia RADHA on CKD - stable Plan: * continue TRC/nebs PRN * continue oxygen supplementation with goal O2 sat > 92% * Serial troponin/ECG to rule out ACS negative * Cardiology recommendations appreciated * Pulmonology recommendations appreciated * Continue home medications: Lasix 60 mg, hydralazine 25 mg TID, atorvastatin 20 mg, ASA, metoprolol 12.5 mg * Prednisone 40 mg daily * Augmentin and azithromycin completed * Code: FULL Problem List: 1. Dyspnea on exertion 2. CHF exacerbation 3. Elevated troponin Pain Ratin Pain Location: NA Pain Goal: Remain pain free Pain Plan: NA Tomorrow's Labs & Rationales: None Joshua Chris MD 10/07/17 1322: Attending MD Review Statement Attending Statement Attending MD Statement: examined this patient, discuss w/resident/PA/PAGINATOR, agreed w/resident/PA/PAGINATOR, reviewed EMR data (avail), discussed with nursing, discussed with case mgmt, amended to note Attending Assessment/Plan: The patient was seen and discussed with house staff, Cardiology (Dr. Ayala) and Pulmonary (Dr. Zamora). OK to discharge to home today with oxygen if needed. Will need to follow-up BEP with Brendon.
[2017-10-07 08:49] LABS: ABSOLUTE BASOPHIL COUNT 0 /CUMM (0.0-0.2); ABSOLUTE EOSINOPHIL COUNT 0 /CUMM (0.0-0.7); ABSOLUTE GRANULOCYTE CT 6.3 /CUMM (1.4-6.5); ABSOLUTE LYMPH COUNT 1.5 /CUMM (1.2-3.4); ABSOLUTE MONOCYTE COUNT 0.7 /CUMM (0.10-0.60); BASOPHIL % 0.5 % (0.0-2.0); EOSINOPHIL % 0.5 % (0-5); GRANULOCYTE % 73.2 % (42.2-75.2); HEMATOCRIT 29.8 % (42-52); MEAN CORPUSCULAR HGB 26.9 PG (27.0-31.0); MEAN CORPUSCULAR HGB CONC 33.4 G/DL (33.0-37.0); MEAN CORPUSCULAR VOLUME 80.5 FL (80.0-94.0); MEAN PLATELET VOLUME 7.8 FL (7.4-10.4); PLATELET COUNT 176 /CUMM (130-400); RBC DISTRIBUTION WIDTH 15.3 % (11.5-14.5); RED BLOOD CELL CT 3.71 /CUMM (4.70-6.10); WHITE BLOOD CELL COUNT 8.6 /CUMM (4.8-10.8)
--- NOTE | 2017-10-07 10:31 | PN- Cardiology ---
Subjective Subjective: Feeling better. Shortness of breath significantly improved. No chest pain. No palpitations. No diaphoresis. Objective Vital Signs and I&Os Vital Signs Date Time Temp Pulse Resp B/P B/P Pulse O2 O2 Flow FiO2 Mean Ox Delivery Rate 10/07 1015 22 89 Room Air 03/ 1000 16 96 Nasal 2.0L Cannula 10/07 0756 58 124/72 03/04 0754 58 124/72 03/04 0600 97.8 58 18 124/72 95 03/04 0000 96 Nasal 2.0L Cannula 10/06 2300 98.7 60 20 128/62 99 03 2159 74 128/60 10/06 1552 90 118/64 10/06 1526 98.7 66 20 18/64 98 Nasal 2.0L Cannula 10/06 1400 98.8 90 20 136/72 96 03 1214 22 89 Room Air 10/06 1214 18 95 Room Air Intake & Output 10/07 1600 10/07 0800 03/04 0000 10/06 1600 10/06 0800 10/06 0000 Intake Total 250 449 536 2762 Output Total 6800 222 9785 325 Balance -1050 -650 -461 01 5559 Intake, Oral 250 122 433 5892 Output, Urine 0096 132 3607 325 Patient 194 lb 199 lb Weight Weight Bed scale Measurement Method Physical Exam: Gen: NAD HEENT: normal Lungs: Scattered rales bilaterally, normal resp. effort Heart: RRR, S1, S2, 3 out of 6 systolic Abdomen: Soft, nontender, no masses Extremities: 1+ edema Neuro: Alert and oriented x 3, cranial nerves intact Current Medications: Current Medications Sig/Leonila Start time Last Medication Dose Route Stop Time Status Admin Allopurinol 100 MG DAILY 10/05 1000 AC 10/07 PO 0755 Amoxicillin/ 500 MG BID 10/05 1000 AC 10/07 Clavulanate Potassium PO 0756 Aspirin 81 MG DAILY 10/05 1000 AC 10/07 PO 0755 Atorvastatin Calcium 20 MG DAILY 10/05 1000 AC 10/07 PO 0756 Azithromycin 500 MG DAILY 10/05 1000 AC 10/07 PO 0756 Finasteride 5 MG QPM 10/05 2200 AC 10/06 PO 2159 Furosemide 60 MG 7:30 AM, & 4:30 PM 10/06 1630 AC 10/07 IV 0753 Furosemide 60 MG DAILY 10/05 1000 DC 10/06 PO 0831 Gabapentin 100 MG TID 10/05 1000 AC 10/07 PO 0754 Hydralazine HCl 25 MG TID 10/05 1000 AC 10/07 PO 0756 Insulin Aspart 0 TIDAC 10/06 0800 AC 10/07 SC 0753 Insulin Detemir 28 UNITS DAILY 10/05 1000 AC 10/07 SC 0753 Metoprolol Tartrate 12.5 MG DAILY 10/05 1000 AC 10/07 PO 0754 Minoxidil 5 MG BID 10/05 1000 AC 10/07 PO 0754 Prednisone 40 MG DAILY 10/05 1130 AC 10/07 PO 05 1001 0755 Zolpidem Tartrate 5 MG AT BEDTIME 10/06 2200 AC 10/06 PO 2159 Results Last 48 Hrs of Labs/Mics: Laboratory Tests 10/07/17 0615: Anion Gap 13, Estimated GFR 37 L, BUN/Creatinine Ratio 27.2 H, CBC w Diff NO MAN DIFF REQ, RBC 3.71 L, MCV 80.5, MCH 26.9 L, MCHC 33.4, RDW 15.3 H, MPV 7.8, Gran % 73.2, Lymphocytes % 17.3 L, Monocytes % 8.5, Eosinophils % 0.5, Basophils % 0.5, Absolute Granulocytes 6.3, Absolute Lymphocytes 1.5, Absolute Monocytes 0.7 H, Absolute Eosinophils 0, Absolute Basophils 0 Assessment/Plan Assessment/Plan Assessment: 1. Hypertension 2. Diabetes mellitus 3. Chronic kidney disease 4. Moderate to severe aortic stenosis 5. Chronic half-pack, with possible acute exacerbation. Persistent desaturation with ambulation Plan: * Change Lasix to 80 mg p.o. daily * Likely ready for discharge to home today. * Follow up with Dr. Leary in 1 week Continue telemetry? Yes
[2017-10-07] MEDS ORDERED: PREDNISONE20 M1 PO (10:32)
[2017-10-07] MEDS ORDERED: FUROSEMIDE80 M1 PO (10:35)
--- NOTE | 2017-10-07 13:58 | PN- Pulmonary ---
Subjective HPI/Critical Care Issues: Patient seen and examined. He qualified for oxygen less than 88% on room air with exertion. He is anticipating discharge today. Objective Current Medications: Current Medications Sig/Leonila Start time Last Medication Dose Route Stop Time Status Admin Allopurinol 100 MG DAILY 10/05 1000 AC 10/07 PO 0755 Amoxicillin/ 500 MG BID 10/05 1000 AC 10/07 Clavulanate Potassium PO 0756 Aspirin 81 MG DAILY 10/05 1000 AC 10/07 PO 0755 Atorvastatin Calcium 20 MG DAILY 10/05 1000 AC 10/07 PO 0756 Azithromycin 500 MG DAILY 10/05 1000 AC 10/07 PO 0756 Finasteride 5 MG QPM 10/05 2200 AC 10/06 PO 2159 Furosemide 80 MG DAILY 10/08 1000 AC PO Furosemide 60 MG 7:30 AM, & 4:30 PM 10/06 1630 DC 10/07 IV 0753 Gabapentin 100 MG TID 10/05 1000 AC 10/07 PO 0754 Hydralazine HCl 25 MG TID 10/05 1000 AC 10/07 PO 0756 Insulin Aspart 0 TIDAC 10/06 0800 AC 10/07 SC 1200 Insulin Detemir 28 UNITS DAILY 10/05 1000 AC 10/07 SC 0753 Magnesium Hydroxide 30 ML ONE ONE 10/07 1045 DC 10/07 PO 10/07 1046 1115 Metoprolol Tartrate 12.5 MG DAILY 10/05 1000 AC 10/07 PO 0754 Minoxidil 5 MG BID 10/05 1000 AC 10/07 PO 0754 Prednisone 40 MG DAILY 10/05 1130 AC / PO 05 1001 0755 Zolpidem Tartrate 5 MG AT BEDTIME 10/06 2200 AC 10/06 PO 2159 Vital Signs & I&O Last 24 Hrs of Vitals and I&O: Vital Signs Date Time Temp Pulse Resp B/P B/P Pulse O2 O2 Flow FiO2 Mean Ox Delivery Rate 10/07 1015 22 89 Room Air 10/07 1000 16 96 Nasal 2.0L Cannula / 0756 58 124/72 03/04 0754 58 124/72 /04 0600 97.8 58 18 124/72 95 03/04 0000 96 Nasal 2.0L Cannula 10/06 2300 98.7 60 20 128/62 99 03/03 2159 74 128/60 10/06 1552 90 118/64 / 1526 98.7 66 20 98 Nasal 2.0L Cannula 10/06 1400 98.8 90 20 136/72 96 Intake & Output 10/07 1600 10/07 0800 10/07 0000 Intake Total 250 Output Total 1300 650 Balance -1050 -650 Intake, Oral 250 Output, Urine 1300 650 Patient 194 lb Weight Exam Other Physical Findings: Generally - Awake, alert and comfortable without distress Head and neck - normocephalic, atraumatic, EOMI grossly intact Cardiovascular - S1, S2, Lungs -improved rhonchi Abdomen - Bowel sounds positive, soft, non-tender Extremities - trace b/l edema Results Last 24 Hrs of Lab Results: Laboratory Tests 10/07/17 0615: Anion Gap 13, Estimated GFR 37 L, BUN/Creatinine Ratio 27.2 H, CBC w Diff NO MAN DIFF REQ, RBC 3.71 L, MCV 80.5, MCH 26.9 L, MCHC 33.4, RDW 15.3 H, MPV 7.8, Gran % 73.2, Lymphocytes % 17.3 L, Monocytes % 8.5, Eosinophils % 0.5, Basophils % 0.5, Absolute Granulocytes 6.3, Absolute Lymphocytes 1.5, Absolute Monocytes 0.7 H, Absolute Eosinophils 0, Absolute Basophils 0 Impression/Plan Impression/Plan Impression/Plan: Impression 76 year old man acute hypoxemic respiratory failure likely secondary to chf/fluid overload, underlying mild exacerbation of COPD Plan -lasix, ins/outs, outpt follow up -empiric steroids 40mg po daily for 5 days to assist with any inflammatory process -f/u cardiology, diuresis, no stage 3 diastolic dysfunction -ins/outs, daily weights -s/p abx -ac for afib -bronchoscopy at this point is premature, will continue to follow clinical course -TRC/Nebs DVT prophylaxis at all times
--- NOTE | 2017-10-07 21:11 | Discharge Summary ---
Visit Information Visit Dates Admission Date: 10/05/17 Discharge Date: 10/07/17 Hospital Course Course Attending Physician: Joshua Chris MD Primary Care Physician: Sara Olvera MD Hospital Course: Mr. Jameson is a 76-year-old male with a history of obesity, hypertension, dyslipidemia, diabetes mellitus, chronic kidney disease, anemia, aortic stenosis, carotid artery disease, moderate to severe concentric left ventricular hypertrophy, previously documented atrial fibrillation not on AC, acute diastolic heart failure discharged the day before for CAP and acute on CHF who presents to ED for worsening shortness of breath Vital signs on admission: temperature 98.2, pulse 71, respiratory rate 18, blood pressure 134/ 64, SPO2 95% on room air Labs on admission: hemoglobin 10.6, hematocrit 31.7, MCV 79.2, platelet count 177, Gas-X 77.6, lymphocytes 12.7,sodium 142, potassium 4.0, chloride 105, anion gap 13, BUN 43, creatinine 1.9, glucose 198, calcium 10.4, magnesium 2.4, AST 28 , ALT 39, alkaline phosphatase 69, troponin I serial were 0.13(last one was 0.19 ), proBNP 2400 (last was 4210), albumin 4.4 Problem list: Acute hypoxic respiratory failure secondary to Acute on chronic diastolic heart failure vs Aortic stenosis Type II IA most likely secondary to demand ischemia RADHA on CKD Patient was placed on observation for further monitoring and evaluation. Cardiology and Pulmonology were consulted. Serial troponin/ECG ruled out ACS. Patient was given TRC/nebs as needed and required oxygen supplementation with goal O2 sat > 92%. We continued his recently precribed antibiotics and steroids. His other home medications were continued. During ambulation patient O2 levels dropped to <88% and patient was discharged with oxygen as needed. Allergies: Coded Allergies: hydrocodone (NAUSEA 04/11/17) Pertinent Lab Results: 10/05/17-005 XRY-PORTABLE CHEST XRAY FINDINGS: Cardiac leads overlie the chest. The lungs are well expanded. Persistent right infrahilar and left perihilar airspace opacities. Diffuse bronchial wall thickening. No pleural effusion or pneumothorax. The cardiomediastinal silhouette remains prominent. IMPRESSION: Similar appearance of right infrahilar and left perihilar airspace opacities. Diffuse bronchial wall thickening could represent an underlying small airways process or could be chronic. Disposition Summary Disposition Principal Diagnosis: Acute hypoxemic respiratory failure Additional Diagnosis: COPD exacerbation CHF exacerbation Discharge Disposition: home or self care Discharge Instructions General Discharge Information Code Status: Full Code Patient's Diet: Diabetic Patient's Activity: As tolerated Follow-Up Instructions/Appts: Follow up with the bar pointer within 1 week upon discharge Follow up with your PCP upon discharge Follow up with your cto within 1 week upon discharge Continue oxygen supplementation as needed Medications at Discharge Discharge Medications: Stop taking the following medications: Furosemide (Furosemide) 20 MG TABLET ORAL DAILY Azithromycin (Azithromycin) 500 MG TABLET ORAL DAILY Qty = 7 Amoxicillin/Potassium Clav (Augmentin 875-125 Tablet) 875 MG-125 MG TABLET ORAL TWICE DAILY Qty = 8 Continue taking these medications: Hydralazine HCl (Hydralazine HCl) 25 MG TABLET 1 Tablet ORAL THREE TIMES DAILY Comments: Last Taken:10/07/17 Time:0800 Finasteride (Finasteride) 5 MG TABLET 1 Tablet ORAL Every night Comments: Last Taken:10/06/17 Time:9PM Minoxidil (Minoxidil) 2.5 MG TABLET 2 Tablet ORAL TWICE DAILY Comments: Last Taken:10/07/17 Time:0800 Aspirin (Children's Aspirin) 81 MG TAB.CHEW 1 Tablet ORAL DAILY Comments: Last Taken:10/07/17 Time:800 Metoprolol Tartrate (Metoprolol Tartrate) 25 MG TABLET 0.5 Tablet ORAL DAILY Qty = 90 Comments: Last Taken:10/07/17 Time:0800 Allopurinol (Allopurinol) 100 MG TABLET 1 Tablet ORAL DAILY Qty = 90 Comments: Last Taken: 10/07/17 Time:0800 Cyanocobalamin (Vitamin B-12) 1,000 MCG TABLET 1 Tablet ORAL DAILY Comments: NOT GIVEN IN HOSPITAL Cinnamon Bark (Cinnamon) 500 MG CAPSULE 1 Capsule ORAL DAILY Comments: NOT GIVEN IN HOSPITAL Lactobacillus Acidophilus (Probiotic) 10 BILLION CELL CAPSULE 1 Capsule ORAL DAILY Comments: NOT TAKEN Atorvastatin Calcium (Atorvastatin Calcium) 40 MG TABLET 0.5 Tablet ORAL DAILY Qty = 90 Comments: Last Taken:10/07/17 Time:8AM Gabapentin (Gabapentin) 100 MG CAPSULE 1 Capsule ORAL THREE TIMES DAILY Qty = 270 Comments: Last Taken:10/07/17 Time:0800 Insulin-Lantus (Lantus) 100 UNIT/ML VIAL 28 Units Inject into fatty tissue Every Morning Comments: LEVIMIR ADMINISTERED Last Taken:10/04/17 Time:0800 Insulin-Lantus (Lantus) 100 UNIT/ML VIAL 33 Units Inject into fatty tissue Every night Comments: Last Taken: 10/06/17 Time: 9PM Insulin Lispro (Humalog) 100 UNIT/ML VIAL Units Inject into fatty tissue BEFORE MEALS AND AT BEDTIME Comments: Last Taken:10/07/17 Time:0800 Docusate Sodium (Colace) 100 MG CAPSULE 1 Capsule ORAL TWICE DAILY as needed for CONSTIPATION Qty = 60 Instructions: . Comments: NOT GIVEN IN HOSPITAL Magnesium Hydroxide (Milk Of Magnesia) 400 MG/5 ML ORAL.SUSP 5 Milliliters ORAL DAILY NEEDED as needed for CONSTIPATION Qty = 300 Instructions: . Comments: Last Taken:10/03/17 Time:1135 Start taking the following new medications: Prednisone (Prednisone) 20 MG TABLET 40 Milligram ORAL DAILY Qty = 1 No Refills Comments: Last Taken:10/07/17 Time:8AM Furosemide (Furosemide) 80 MG TABLET 1 Tablet ORAL DAILY Qty = 30 No Refills Comments: IV DOSE GIVEN Last Taken:10/07/17 Time:8AM Copies To: Wade GONSALES,Sara; Sera GONSALES,Fadi; Jamie GONSALES,Leno Attending MD Review Statement Documenting Attending: Joshua Chris MD Other Findings: The patient was seen and agree with the plan of care upon discharge.
== END 2017-10-07 16:55 ==
LOC: ERH 00:50 → ERHI 09:35 → ENRESERV 12:44 → ENTRNSPT 13:22 → ERHI 13:29 → EDTRNSPT 13:42 → EDTRNSPTSTS 13:42 → 1NO 13:58 → CMPTRNSPT 14:05 → ENPENDDIS 10-07 10:38 → 1NO 10-07 16:55
PROVIDERS: Emergency Medicine; Student in an Organized Health Care Education/Training Program
DX: I13.0 Hypertensive heart and chronic kidney disease with heart failure and stage 1 through stage 4 chronic kidney disease, or unspecified chronic kidney disease (principal); I50.33 Acute on chronic diastolic (congestive) heart failure; N18.9 Chronic kidney disease, unspecified; E11.22 Type 2 diabetes mellitus with diabetic chronic kidney disease; Z79.4 Long term (current) use of insulin; J96.01 Acute respiratory failure with hypoxia; Z79.82 Long term (current) use of aspirin; I35.0 Nonrheumatic aortic (valve) stenosis; K59.00 Constipation, unspecified; E66.9 Obesity, unspecified; I48.91 Unspecified atrial fibrillation; Z79.01 Long term (current) use of anticoagulants; E78.5 Hyperlipidemia, unspecified; D64.9 Anemia, unspecified
CPT/HCPCS: 1328; 1530; 1748; 36592; 71045; 82436; 93005; 93010; 96374; 96376; G0378; J0456; J1815; J1940; J3490

== ENCOUNTER 2018-04-02 19:54 | Inpatient (IN) | payer OTHER, MEDICARE ==
[~2018-04-02] VITALS: Ht 167.6 cm; Wt 82.1 kg
[~2018-04-02 19:54] MED LIST changes: +AUGMENTIN 500-1 EACH PO; +FUROSEMIDE80 M1 PO; +PREDNISONE20 M1 PO
[2018-04-02 20:20] LABS: ABSOLUTE BASOPHIL COUNT 0 /CUMM (0.0-0.2); ABSOLUTE EOSINOPHIL COUNT 0 /CUMM (0.0-0.7); ABSOLUTE GRANULOCYTE CT 10.6 /CUMM (1.4-6.5); ABSOLUTE LYMPH COUNT 1.1 /CUMM (1.2-3.4); ABSOLUTE MONOCYTE COUNT 0.7 /CUMM (0.10-0.60); BASOPHIL % 0.2 % (0.0-2.0); EOSINOPHIL % 0 % (0-5); HEMATOCRIT 44.8 % (42-52); MEAN CORPUSCULAR HGB 28.4 PG (27.0-31.0); MEAN CORPUSCULAR HGB CONC 34.1 G/DL (33.0-37.0); MEAN CORPUSCULAR VOLUME 83.4 FL (80.0-94.0); MEAN PLATELET VOLUME 7.9 FL (7.4-10.4); PLATELET COUNT 144 /CUMM (130-400); RED BLOOD CELL CT 5.37 /CUMM (4.70-6.10); WHITE BLOOD CELL COUNT 12.4 /CUMM (4.8-10.8)
[2018-04-02 20:35] LABS: GRANULOCYTE % 85.3 % (42.2-75.2)
--- NOTE | 2018-04-02 21:20 | ED GENERAL ADULT ---
History of Present Illness General Chief Complaint: General Adult Stated Complaint: "SUGAR IS HIGH, 450" PER PT Source: patient, old records Exam Limitations: no limitations Vital Signs & Intake/Output Vital Signs & Intake/Output Vital Signs Date Time Temp Pulse Resp B/P B/P Pulse O2 O2 Flow FiO2 Mean Ox Delivery Rate 04/02 2000 95.2 83 20 163/78 97 Room Air Allergies Coded Allergies: hydrocodone (NAUSEA 04/11/17) Reconcile Medications Allopurinol 100 MG TABLET 1 TAB PO DAILY GOUT (Reported) Aspirin (Children's Aspirin) 81 MG TAB.CHEW 1 TAB PO DAILY HEART HEALTH ( Reported) Atorvastatin Calcium 40 MG TABLET 0.5 TAB PO DAILY CHOLESTEROL (Reported) Cinnamon Bark (Cinnamon) 500 MG CAPSULE 1 CAP PO DAILY SUPPLEMENT (Reported) Cyanocobalamin (Vitamin B-12) 1,000 MCG TABLET 1 TAB PO DAILY VITAMIN SUPPORT (Reported) Docusate Sodium (Colace) 100 MG CAPSULE 1 CAP PO BID PRN CONSTIPATION . Finasteride 5 MG TABLET 1 TAB PO QPM PROSTATE (Reported) Furosemide 80 MG TABLET 1 TAB PO DAILY fluid retention Gabapentin 100 MG CAPSULE 1 CAP PO TID NERVE PAIN (Reported) Hydralazine HCl 25 MG TABLET 1 TAB PO TID BP (Reported) Insulin Lispro (Humalog) 100 UNIT/ML VIAL DM (Reported) Insulin-Lantus (Lantus) 100 UNIT/ML VIAL 28 UNITS SC QAM DM (Reported) Insulin-Lantus (Lantus) 100 UNIT/ML VIAL 33 UNITS SC QPM DM (Reported) Lactobacillus Acidophilus (Probiotic) 10 BILLION CELL CAPSULE 1 CAP PO DAILY GI (Reported) Magnesium Hydroxide (Milk Of Magnesia) 400 MG/5 ML ORAL.SUSP 5 ML PO DAILY NEEDED PRN CONSTIPATION . Metoprolol Tartrate 25 MG TABLET 0.5 TAB PO DAILY HEART/BP (Reported) Minoxidil 2.5 MG TABLET 2 TAB PO BID BP (Reported) Prednisone 20 MG TABLET 40 MG PO DAILY LUNG HEALTH Triage Note: PT TO TRIAGE C/O HIGH BLOOD SUGAR, FINGERSTICK 423 IN TRIAGE. PT STATES HE ONLY FEELS SHAKEY. INSULIN DEPENDENT DIABETIC TAKE HUMALOG SLIDING SCALE AND 40UNITS LANTUS MORNING AND NIGHT. Triage Nurses Notes Reviewed? yes HPI: 77M PMH HTN, IDDM, HLD, CAD, recent AVR in November, presenting with hyperglycemia. Found his fingerstick at home to be 300 this morning, 400 at lunch, 430 now. He had been asymptomatic all day. He has been giving himself home sliding scale Humalog, and takes Lantus 40 units BID. While in triage, he had an episode of near syncope, feeling suddenly lightheaded, nauseous, and nearly passing out. He was laid down and EKG was done, which found atrial fibrillation. He does have a history of afib but has not been documented in it for quite some time. He does take Eliquis. He denies chest pain, vision changes, sore throat, SOB, abdominal pain, diarrhea, dysuria. Past History Travel History Traveled to [place] past 21 day No Medical History Any Pertinent Medical History? 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 Hx Contributory? No Review of Systems Review of Systems Constitutional: Reports: no symptoms. EENTM: Reports: no symptoms. Respiratory: Reports: no symptoms. Cardiovascular: Reports: no symptoms. GI: Reports: no symptoms. Genitourinary: Reports: no symptoms. Musculoskeletal: Reports: no symptoms. Skin: Reports: no symptoms. Neurological/Psychological: Reports: no symptoms. Hematologic/Endocrine: Reports: no symptoms. Immunologic/Allergic: Reports: no symptoms. All Other Systems: Reviewed and Negative Physical Exam Physical Exam General Appearance: well developed/nourished, no apparent distress Head: atraumatic, normal appearance Eyes: Bilateral: normal appearance, PERRL, EOMI. Ears, Nose, Throat: normal pharynx, hearing grossly normal Neck: normal inspection, supple, full range of motion Respiratory: normal breath sounds, chest non-tender, no respiratory distress Cardiovascular: regular rate/rhythm Gastrointestinal: soft, non-tender Back: normal inspection, normal range of motion Extremities: normal inspection, normal range of motion Neurologic/Psych: awake, alert, oriented x 3, normal mood/affect Skin: intact, normal color, warm/dry Core Measures ACS in differential dx? No CVA/TIA Diagnosis: No Sepsis Present: No Sepsis Focused Exam Completed? No Progress Differential Diagnoses I considered the following diagnoses in my evaluation of the patient: arrhythmia , syncope, ACS, hyperglycemia, DKA, RADHA Plan of Care: Orders Procedure Date/time Status Heart Healthy Diet 04/03 B Active Patient Data 04/02 2135 Active ED Holding Orders 04/02 2130 Active Admit to inpatient 04/02 2130 Active Vital Signs 04/02 2130 Active Code Status 04/02 2130 Active URINALYSIS 04/02 2027 Active PARTIAL THROMBOPLASTIN TIME 04/02 2027 Active PROTHROMBIN TIME 04/02 2027 Active THYROID STIMULATING HORMONE 04/02 2023 Active TROPONIN LEVEL 04/02 2023 Active MAGNESIUM 04/02 2023 Active EKG 04/02 2021 Active COMPREHENSIVE METABOLIC PANEL 04/02 2010 Complete CBC WITHOUT DIFFERENTIAL 04/02 2010 Complete Current Medications Sig/Leonila Start time Last Medication Dose Stop Time Status Admin Sodium Chloride 1,000 ML BOLUS ONE 04/02 2045 AC 04/02 (Normal Saline 0.9%) 04/024 2010 Laboratory Tests 04/02/182026: TSH Cancelled 04/02/182024: PT Pending, INR Pending, APTT Pending 04/02/18 2014: Anion Gap 12, Estimated GFR 26 L, BUN/Creatinine Ratio 25.0, Glucose 469 H, Calcium 10.6 H, Total Bilirubin 1.1, AST 31, ALT 48, Alkaline Phosphatase 99, Total Protein 7.1, Albumin 4.5, Globulin 2.6, Albumin/Globulin Ratio 1.7, CBC w Diff NO MAN DIFF REQ, RBC 5.37, MCV 83.4, MCH 28.4, MCHC 34.1, RDW 19.0 H, MPV 7.9, Gran % 85.3 H, Lymphocytes % 8.5 L, Monocytes % 6.0, Eosinophils % 0, Basophils % 0.2, Absolute Granulocytes 10.6 H, Absolute Lymphocytes 1.1 L, Absolute Monocytes 0.7 H, Absolute Eosinophils 0, Absolute Basophils 0 Initial ED EKG: AFIB, LVH, nonspecific ST T wave chg Prior EKG: unchanged Departure Departure Disposition: STILL A PATIENT Condition: Stable Clinical Impression Primary Impression: Type 2 diabetes mellitus with hyperglycemia Qualifiers: Diabetes mellitus half-way insulin use: with meterman use Qualified Codes: E11.65 - Type 2 diabetes mellitus with hyperglycemia; 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 Secondary Impressions: RADHA (acute kidney injury), Near syncope, Paroxysmal atrial fibrillation Referrals: Sara Olvera MD (PCP/Family) Departure Forms: Customer Survey General Discharge Information Admission Note Spoke With: Karla Machuca MD Documentation of Exam: Documentation of any treatments & extenuating circumstances including Concerns Regarding Discharge (functional status, medication knowledge or non-compliance, living conditions, etc.) that warrant an admission rather than observation: [ TELE MONITORING, SERIAL ENZYMES, TIGHT GLUCOSE CONTROL, ] Critical Care Note Critical Care Note Critical Care Time: non-applicable
--- NOTE | 2018-04-02 21:39 | History & Physical ---
Johnathon Overton 04/02/182138: General Information and HPI MD Statement: I have seen and personally examined RANJAN JAMESON and documented this H&P. The patient is a 77 year old M who presented with a patient stated chief complaint of elevated blood sugar. Source of Information: patient Exam Limitations: no limitations History of Present Illness: Patient is a 77-year-old male with a past medical history of A. fib on Eliquis, hypertension, hyperlipidemia, type 2 diabetes, coronary artery disease, chronic kidney disease, anemia, hx of aortic stenosis (status post TAVR in November), moderate to severe concentric left ventricular hypertrophy (last echo in October), presents to [facility] with the chief complaint of hyperglycemia. His last admission in October was due to acute hypoxic respiratory failure secondary to acute on chronic CHF, resulting in type II AL (demand ischemia). Per the patient he took a fingerstick right before lunch last morning showing a sugar in the 300s and then he retook it after supper with a sugar in the 400s. He usually takes Humalog sliding scale with Lantus twice daily but did not take his evening dose today because he was scared about his high sugar. To note patient was recently started on a steroid taper. When patient arrived to triage in the ED he had a pre-syncopal episode with lightheadedness and nausea. Fingerstick at that time showed blood glucose of 423. EKG was taken showing A. fib. Patient denies any feeling of palpitations, headache, nausea, abdominal pain, constipation, or dysuria. Allergies/Medications Allergies: Coded Allergies: hydrocodone (NAUSEA 04/11/17) Home Med list Allopurinol 100 MG TABLET 1 TAB PO DAILY GOUT (Reported) Apixaban (Eliquis) 2.5 MG TABLET 1 TAB PO BID Atrial Fibrilliation (Reported) Aspirin (Children's Aspirin) 81 MG TAB.CHEW 1 TAB PO DAILY HEART HEALTH ( Reported) Atorvastatin Calcium 40 MG TABLET 0.5 TAB PO DAILY CHOLESTEROL (Reported) Cinnamon Bark (Cinnamon) 500 MG CAPSULE 1 CAP PO DAILY SUPPLEMENT (Reported) Cyanocobalamin (Vitamin B-12) 1,000 MCG TABLET 1 TAB PO DAILY VITAMIN SUPPORT (Reported) Docusate Sodium (Colace) 100 MG CAPSULE 1 CAP PO BID PRN CONSTIPATION . Finasteride 5 MG TABLET 1 TAB PO QPM PROSTATE (Reported) Gabapentin 100 MG CAPSULE 1 CAP PO TID NERVE PAIN (Reported) Insulin Lispro (Humalog) 100 UNIT/ML VIAL DM (Reported) Insulin-Lantus (Lantus) 100 UNIT/ML VIAL 28 UNITS SC QAM DM (Reported) Insulin-Lantus (Lantus) 100 UNIT/ML VIAL 33 UNITS SC QPM DM (Reported) Lactobacillus Acidophilus (Probiotic) 10 BILLION CELL CAPSULE 1 CAP PO DAILY GI (Reported) Magnesium Hydroxide (Milk Of Magnesia) 400 MG/5 ML ORAL.SUSP 5 ML PO DAILY NEEDED PRN CONSTIPATION . Methylprednisolone. 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 Psychosocial History Who Do You Live With? girlfriend Services at Home: None Primary Language: British ETOH Use: denies use Functional Ability ADLs Independent: dressing, eating, toileting, bathing. Ambulation: independent IADLs Independent: shopping, housework, finances, food prep, telephone, transportation , medication admin. Review of Systems Review of Systems Constitutional: Reports: see HPI. Exam & Diagnostic Data Last 24 Hrs of Vital Signs/I&O Vital Signs Date Time Temp Pulse Resp B/P B/P Pulse O2 O2 Flow FiO2 Mean Ox Delivery Rate 04/02 2340 98.3 68 20 160/80 96 Room Air 04/029 98.6 61 20 166/78 95 Room Air 04/02 2000 96.2 83 20 163/78 97 Room Air Intake & Output 04/03 0800 04/03 0000 04/02 1600 Intake Total Output Total 700 Balance -700 Output, Urine 700 Patient 187 lb Weight Weight Reported by Patient Measurement Method Physical Exam General Appearance Alert, Oriented X3, Cooperative, No Acute Distress Skin No Significant Lesion HEENT Atraumatic, PERRLA, EOMI Neck Supple Cardiovascular Normal S1, Normal S2, No Murmurs Lungs Clear to Auscultation Abdomen Normal Bowel Sounds, Soft, No Tenderness Neurological Normal Tone Assessment/Plan Assessment: Patient is a 77-year-old male with a past medical history of A. fib on Eliquis, hypertension, hyperlipidemia, type 2 diabetes, coronary artery disease, chronic kidney disease, anemia, hx of aortic stenosis (status post TAVR in November), moderate to severe concentric left ventricular hypertrophy (last echo in October), presents to [facility] ED with the chief complaint of hyperglycemia. While in the hospital patient had a near syncopal episode although he did not pass out. #Near syncopal episode #Uncontrolled T2DM #RADHA on CKD stage III #Elevated Troponins #Spinal Stenosis on Steroid Therapy #Hx of paroxysmal Afib #Hx of diastolic HF s/p TAVR #Hx of HLD - obs on telemetry for 24-48 hrs - check orthostats Q6 - trend troponins - blood sugar >400 could be due to medrol dose pack - NSS and Accuchecks - endocrinology consult - follow renal panel after hydration - consider stopping medrol - consider changing statin DVT ppx Full Code As Ranked By This Provider Problem List: 1. Near syncope 2. Type 2 diabetes mellitus with hyperglycemia Qualifiers Diabetes mellitus shelter insulin use: with buttermaker helper use Qualified Codes: E11.65 - Type 2 diabetes mellitus with hyperglycemia; Z79.4 - vermin exterminator (current ) use of insulin Core Measures/Misc (04/22) Acute Coronary Syndrome ACS Diagnosis: No Congestive Heart Failure Congestive Heart Failure Diagnosis Yes Last Known EF % 55 No BINU/ARB d/t Renal Failure/Azotemia Comment Controlled with diuretic Cerebrovascular Accident CVA/TIA Diagnosis: No VTE (View Protocol) VTE Risk Factors Age>40 No Mechanical VTE Prophylaxis d/t N/A MechProphylax Ordered No VTE Pharm Prophylaxis d/t NA PharmProphylax ordered Sepsis (View protocol) Sepsis Present: No If YES complete Sepsis Event Note If YES complete Sepsis Event Note Susan GONSALES,Lillie 04/02/18 4865: Core Measures/Misc (04/22) Sepsis (View protocol) If YES complete Sepsis Event Note If YES complete Sepsis Event Note Resident Review Statement Resident Statement: examined this patient, discussed with fall internship, reviewed EMR data (avail) Other Findings: Mr. Jameson is a 77-year-old male with a history of atrial fibrillation on Eliquis, hypertension, hyperlipidemia, diabetes mellitus, chronic kidney disease, anemia, aortic stenosis s/p TAVR 11/21, moderate to severe concentric left ventricular hypertrophy (last Echo 10/21), who presented to the ED with concerns of elevated blood sugar. The patient states that his blood sugar levels normally hover in low to mid 200 range. However, this morning he found it to be 300 this morning with around 400 at lunch and 430 in the evening. He took his insulin before breakfast and lunch but did not take it in the evening as he was concerned about his elevated blood sugar and decided to come to the ED for further evaluation. In the ER during registration, he felt lightheaded and dizzy with a near syncopal episode. An EKG done at the time showed atrial fibrillation with a rate of 65. He states that his heart rhythm goes 'in and out of a.fib' and he is unaware when that happens. He was not on anticoagulation for a number of years (which is consistent with records in EMR) but was started on Eliquis shortly before his TAVR in November this year. He recently has been experiencing back pain. He was evaluated by Dr Yates at [facility] and was started on a Medrol dose pack and Flexeril. He states he started taking the medrol yesterday. ROS: significant for dizziness, exertional shortness of breath, polyuria and constipation Physical Exam: General Appearance: well developed/nourished, no apparent distress Head: atraumatic, normal appearance Eyes: PERRLA Ears, Nose, Throat: normal pharynx, hearing grossly normal Respiratory: normal breath sounds Cardiovascular: irregularly irregular, normal S1, S2 with 2/6 DEBO Gastrointestinal: soft, non-tender Back: normal inspection, Extremities: b/l 2+ pitting edema of lower extremities up to shins Neurologic/Psych: awake, alert, oriented x 3, normal mood/affect Skin: intact, normal color, warm/dry EKG shows atrial fibrillation with heart rate of 65. T wave inversions in V5-V6. Troponin 0.14 Assessment: 1. Hyperglycemia likely secondary to steroid use 2. Atrial Fibrillation 3. Elevated Troponin 4. RADHA on CKD Plan: * Admit patient to telemetry * Trend troponins and EKG * Cardiology consult with Dr Leary in am * Echo can be ordered if recommended by cardiology * Accucheks with Insulin SS * Insulin Detemir 40 units BID * Endo consult in am for adjustment of his insulin * Trend renal function. His baseline appears to be between 1.7-2 * Diet: Diabetic diet * DVT Prophylaxis: On Eliquis * Code: Full Code Karla Machuca MD 04/03/18 0044: Core Measures/Misc (04/22) Sepsis (View protocol) If YES complete Sepsis Event Note If YES complete Sepsis Event Note Attending MD Review Statement Attending Statement Attending MD Statement: examined this patient, discuss w/resident/PA/REGISTERED NURSE CARDIAC TELEMETRY, agreed w/resident/PA/REGISTERED NURSE CARDIAC TELEMETRY, reviewed EMR data (avail) Attending Assessment/Plan: 77M PMH HTN, IDDM, HLD, CAD, recent AVR in November, presenting with hyperglycemia. He has recently started a Medrol dose pack for lower back pain, and was scheduled to have an outpatient lumbar MRI on 04/03. At home, he noted his fingersticks 300 in the morning, increasing to 400 by the evening, so came to ER. In triage, his fingerstick was 423, and he had an episode of lightheadedness and near syncope. He was laid down and given IV fluids and felt better. He is currently nearly asymptomatic, only feeling a little "off", but otherwise well, denying chest pain, SOB, palpitations, lightheadedness, n/v, abdominal pain, diarrhea, dysuria. EKG showed atrial fibrillation, which he has a history of. He was found to have elevated creatinine 2.4, elevated troponin 0.18. 1. Type 2 hyperglycemia 2. Near syncope 3. Paroxysmal atrial fibrillation 4. RADHA 5. Type 2 myocardial infarction Plan - Admit to telemetry - Serial troponin and EKG - Gentle IV hydration - Echocardiogram - Cardiology consult - Trend renal function - Continue Lantus 40 units BID + sliding scale insulin - Endocrine consult - Continue home medications - Continue Eliquis for DVT PPx
[2018-04-02 22:24] LABS: PT 13.7 SEC (9.4-12.5); PTT 30 SEC (25-37)
[2018-04-02] MEDS ORDERED: TORSEMIDE20 M1 PO (22:54)
[2018-04-02] MEDS ORDERED: ELIQUIS2.5 M1 PO (22:55)
[2018-04-02] MEDS ORDERED: MEDROL4 M2 PO (22:56)
[2018-04-02 23:40] VITALS: BP 160/80
[2018-04-03 06:26] VITALS: BP 140/66
--- NOTE | 2018-04-03 08:17 | PN- Housestaff ---
[facility] Subjective Follow-up For: Uncontrolled diabetes, hyperglycemia Near syncopal episode Elevated troponin Acute on chronic kidney injury Tele-Events Since Last Visit: Patient remained in A. fib with heart rate between 40s-90s Subjective: No overnight events. Patient remained afebrile. Seen and examined this morning patient denied chest pain, short of breath, palpitation, nausea, lightheaded, vomiting, abdominal pain or dysuria. Patient is on room air maintaining saturation 96%. Review of Systems Constitutional: Denies: chills, fever. EENTM: Reports: no symptoms. Cardiovascular: Denies: chest pain, palpitations, syncope. Respiratory: Denies: cough, short of breath, sputum production. Gastrointestinal: Denies: abdominal pain, diarrhea, nausea, vomiting. Genitourinary: Reports: no symptoms. Neurological/Psychological: Reports: no symptoms. Objective Last 24 Hrs of Vital Signs/I&O Vital Signs Date Time Temp Pulse Resp B/P B/P Pulse O2 O2 Flow FiO2 Mean Ox Delivery Rate 04/03 0906 44 04/03 0800 Room Air 04/03 0626 97.4 44 20 140/66 96 Room Air 04/02 2340 98.3 68 20 160/80 96 Room Air 04/02 2259 98.6 61 20 166/78 95 Room Air 04/02 2000 96.2 83 20 163/78 97 Room Air Intake & Output 04/03 1600 04/03 0800 04/03 0000 Intake Total 200 Output Total 475 700 Balance -275 -700 Intake, Oral 200 Output, Urine 475 700 Patient 187 lb Weight Weight Reported by Patient Measurement Method Physical Exam General Appearance: Alert, Oriented X3, Cooperative Skin Temp/Moisture Exam: Warm/Dry Sepsis Skin Exam (color): Normal for Ethnicity HEENT: Atraumatic, PERRLA, EOMI Neck: Supple Cardiovascular: Normal S1, Normal S2 Lungs: Clear to Auscultation Abdomen: Normal Bowel Sounds, Soft Neurological: Normal Speech, Strength at 5/5 X4 Ext, Normal Tone Extremities: No Edema Assessment/Plan Assessment: 77 YO M with PMH of A. fib on Eliquis, hypertension, hyperlipidemia, type 2 diabetes, coronary artery disease, chronic kidney disease stage III, anemia, aortic stenosis (status post TAVR in November), moderate to severe concentric left ventricular hypertrophy (last echo in October,) EF 55% with stage III diastolic heart failure, presents to [facility] ED with the chief complaint of hyperglycemia. While in the hospital patient has near syncopal episode although he did not pass out. We are seeing the patient on telemetry floor for following problems. Near syncopal episode: -Could be neurogenic, symptomatic bradycardia or arrhythmia. We will keep the patient on appeals reviewer veteran and watch for any arrhythmias or blocks. -We will check orthostatic vitals -We will trend his troponin although it is a flat pattern without ischemic changes on EKG. -Patient has bradycardia but he is asymptomatic. Uncontrolled diabetes: -Type 2 diabetes on insulin. -On admission patient has blood sugar 468. Possibly due to steroids he is taking for spinal stenosis that is blood sugar is not controlled with his insulin regimen. -This morning his blood sugar was 281 -Insulin Levemir 28 units twice daily subcutaneous -Continue Accu-Cheks -Insulin NovoLog according to sliding scale, separate scale for mealtime and bedtime. -Follow-up endocrinology recommendations. Acute on chronic kidney:(improved) -Patient has stage III kidney injury, baseline creatinine is 1.9 and GFR in the 30s. -Patient presented with creatinine 2.4, GFR was 26 and today it's 1.8, GFR is 37 -Possibly prerenal due to dehydration in the setting of diuretics. -Improved with IV hydration he received in ED. History of paroxysmal A. fib: -Continue Eliquis 2.5 mg twice daily. -Continue metoprolol 12.5 mg daily for rate control. History of hyperlipidemia: -Continue Lipitor 20 mg daily History of diastolic heart failure and TAVR: -On last echocardiogram patient has ejection fraction 55% and stage III diastolic heart failure. -Continue torsemide -Continue aspirin History of spinal stenosis: -Patient was recently started on steroids and Flexeril. -Continue tapering dose of Medrol -Continue Flexeril DVT prophylaxis: Mechanical patient is already on Eliquis CODE STATUS: Full code Problem List: 1. Near syncope 2. Type 2 diabetes mellitus with hyperglycemia Pain Ratin Pain Location: NONE Pain Goal: Remain pain free Pain Plan: PAIN PATHWAY Tomorrow's Labs & Rationales: WILLY Mullen MD,Bj 04/03/18 1251: Attending Review Statement Attending Statement Attending MD Statement: examined this patient, discuss w/resident/PA/TAKER AWAY, agreed w/resident/PA/TAKER AWAY, discussed with family, reviewed EMR data (avail), discussed with nursing, discussed with case mgmt, amended to note Attending Assessment/Plan: Patient seen and examined. Resting comfortably not in any acute distress. No events on telemetry monitoring overnight. No new complaints this morning. Reports her back pain is improved. He only complained of transient dizziness in the emergency room. There was no loss of consciousness. Symptoms may have been related to his markedly elevated glucose levels. Will monitor patient overnight. No further events on telemetry monitoring, telemetry may be discontinued. Due to improvement of his back pain recommend that his Solu-Medrol may be tapered. Tomorrow begin patient on some Medrol 4 mg daily for 2 days then 2 mg daily for 2 days then stop. Endocrinology consultation appreciated. Will follow recommendations for glucose management. Anticipate discharge tomorrow.
[2018-04-03 08:21] LABS: ABSOLUTE BASOPHIL COUNT 0.1 /CUMM (0.0-0.2); ABSOLUTE EOSINOPHIL COUNT 0 /CUMM (0.0-0.7); ABSOLUTE GRANULOCYTE CT 10.4 /CUMM (1.4-6.5); ABSOLUTE LYMPH COUNT 1.3 /CUMM (1.2-3.4); ABSOLUTE MONOCYTE COUNT 0.7 /CUMM (0.10-0.60); BASOPHIL % 0.4 % (0.0-2.0); EOSINOPHIL % 0 % (0-5); GRANULOCYTE % 83.3 % (42.2-75.2); HEMATOCRIT 43.4 % (42-52); MEAN CORPUSCULAR HGB 28.7 PG (27.0-31.0); MEAN CORPUSCULAR HGB CONC 34.1 G/DL (33.0-37.0); MEAN CORPUSCULAR VOLUME 84.2 FL (80.0-94.0); MEAN PLATELET VOLUME 8.1 FL (7.4-10.4); PLATELET COUNT 134 /CUMM (130-400); RBC DISTRIBUTION WIDTH 18.6 % (11.5-14.5); RED BLOOD CELL CT 5.15 /CUMM (4.70-6.10); WHITE BLOOD CELL COUNT 12.5 /CUMM (4.8-10.8)
--- NOTE | 2018-04-03 09:25 | Cons- Endocrinology ---
General Information and HPI Consulting Request Date of Consult: 04/03/18 Requested By: medical team Reason for Consult: uncontrolled diabetes Source of Information: patient, family, old records Exam Limitations: no limitations History of Present Illness: This 77-year-old male has a known history of diabetes mellitus type 2. He states he is on 40 units of Levemir twice a day as well as sliding scale Humalog. He came to the emergency room because his sugars were going out of control. They progressively angela yesterday until they were over 400. The patient had seen Dr. Yates and was started on a Medrol dose pack. He was also placed on Flexeril. This was begun because of low back pain. He states his back does feel better. He has much less back pain now. When the patient came to the emergency room his creatinine was 2.4 and his potassium was high at 5.3. His troponin is elevated at 0.15. Today his creatinine is down to 1.8. In the hospital the patient has been placed on Levemir 40 units twice a day and a sliding scale NovoLog. The patient states he has lost weight since his aortic valve replacement. He was 225 pounds and now weighs about 178. He notices some discoloration of the skin and is lower legs. He has no swelling of his legs at the present time however. He has a history of atrial fibrillation and is on Eliquis. Allergies/Medications Allergies: Coded Allergies: hydrocodone (NAUSEA 04/11/17) Home Med List: Allopurinol 100 MG TABLET 1 TAB PO DAILY GOUT (Reported) Apixaban (Eliquis) 2.5 MG TABLET 1 TAB PO BID Atrial Fibrilliation (Reported) Aspirin (Children's Aspirin) 81 MG TAB.CHEW 1 TAB PO DAILY HEART HEALTH ( Reported) Atorvastatin Calcium 40 MG TABLET 0.5 TAB PO DAILY CHOLESTEROL (Reported) Cinnamon Bark (Cinnamon) 500 MG CAPSULE 1 CAP PO DAILY SUPPLEMENT (Reported) Cyanocobalamin (Vitamin B-12) 1,000 MCG TABLET 1 TAB PO DAILY VITAMIN SUPPORT (Reported) Docusate Sodium (Colace) 100 MG CAPSULE 1 CAP PO BID PRN CONSTIPATION . Finasteride 5 MG TABLET 1 TAB PO QPM PROSTATE (Reported) Gabapentin 100 MG CAPSULE 1 CAP PO TID NERVE PAIN (Reported) Insulin Lispro (Humalog) 100 UNIT/ML VIAL DM (Reported) Insulin-Lantus (Lantus) 100 UNIT/ML VIAL 28 UNITS SC QAM DM (Reported) Insulin-Lantus (Lantus) 100 UNIT/ML VIAL 33 UNITS SC QPM DM (Reported) Lactobacillus Acidophilus (Probiotic) 10 BILLION CELL CAPSULE 1 CAP PO DAILY GI (Reported) Magnesium Hydroxide (Milk Of Magnesia) 400 MG/5 ML ORAL.SUSP 5 ML PO DAILY NEEDED PRN CONSTIPATION . Methylprednisolone. (Medrol) 4 MG TAB.DS.PK 1 DP PO AD Spinal stenosis ( Reported) 6 on day 1 then reduce by one tablet daily until gone Metoprolol Tartrate 25 MG TABLET 0.5 TAB PO DAILY HEART/BP (Reported) Torsemide 20 MG TABLET 1 TAB PO BID Fluid Retention (Reported) Past History Travel History Traveled to [place] past 21 day No Medical History Blood Transfusion Hx: Yes Neurological: NONE EENT: NONE Cardiovascular: AFIB, CHF, hypertension Respiratory: NONE Gastrointestinal: constipation Hepatic: NONE Renal: "LOW FUNCTIONING KIDNEYS" Musculoskeletal: NONE Psychiatric: NONE Endocrine: diabetes Blood Disorders: NONE Cancer(s): NONE [employer]IST/Reproductive: NONE Surgical History Surgical History: BACK SURGERIES RIGHT TKR Family History Relations & Conditions If Any: MOTHER (CAD, multiple familes on mother sides had heart attack before 60). Psychosocial History Who Do You Live With? girlfriend Services at Home: None Primary Language: Brazilian Smoking Status: Never Smoked ETOH Use: denies use Functional Ability ADLs Independent: dressing, eating, toileting, bathing. Ambulation: independent IADLs Independent: shopping, housework, finances, food prep, telephone, transportation , medication admin. Exam & Diagnostic Data Last 24 Hrs of Vital Signs/I&O Vital Signs Date Time Temp Pulse Resp B/P B/P Pulse O2 O2 Flow FiO2 Mean Ox Delivery Rate 04/03 0906 44 04/03 0800 Room Air 04/03 0626 97.4 44 20 140/66 96 Room Air 04/02 2340 98.3 68 20 160/80 96 Room Air 04/02 2259 98.6 61 20 166/78 95 Room Air 04/02 2000 96.2 83 20 163/78 97 Room Air Intake & Output 04/03 1600 04/03 0800 04/03 0000 Intake Total 200 Output Total 475 700 Balance -275 -700 Intake, Oral 200 Output, Urine 475 700 Patient 187 lb Weight Weight Reported by Patient Measurement Method Vital Signs Date Time Temp Pulse Resp B/P B/P Pulse O2 O2 Flow FiO2 Mean Ox Delivery Rate 04/03 0906 44 04/03 0800 Room Air 04/03 0626 97.4 44 20 140/66 96 Room Air 04/02 2340 98.3 68 20 160/80 96 Room Air 04/02 2259 98.6 61 20 166/78 95 Room Air 04/02 2000 96.2 83 20 163/78 97 Room Air Intake & Output 04/03 1600 04/03 0000 Intake Total 200 Output Total 475 700 Balance -275 -700 Intake, Oral 200 Output, Urine 475 700 Patient 187 lb Weight Weight Reported by Patient Measurement Method Physical Exam General Appearance: alert, awake, comfortable Head: normal appearance Eyes: Bilateral: normal appearance. Neck: normal inspection Respiratory: normal breath sounds Extremities: normal inspection Labs/Desean Results: Laboratory Tests 04/03 04/03 04/03 08 0600 0210 Chemistry Sodium (137 - 145 mmol/L) 137 Potassium (3.5 - 5.1 mmol/L) 4.4 Chloride (98 - 107 mmol/L) 103 Carbon Dioxide (22 - 30 mmol/L) 23 Anion Gap (5 - 16) 11 BUN (9 - 20 mg/dL) 58 H Creatinine (0.7 - 1.2 mg/dL) 1.8 H Estimated GFR (>60 ml/min) 37 L BUN/Creatinine Ratio (7 - 25 %) 32.2 H Troponin I (<0.11 ng/ml) Cancelled 0.15 *H 0.15 *H Hematology CBC w Diff NO MAN DIFF REQ WBC (4.8 - 10.8 /CUMM) 12.5 H RBC (4.70 - 6.10 /CUMM) 5.15 Hgb (14.0 - 18.0 G/DL) 14.8 Hct (42 - 52 %) 43.4 MCV (80.0 - 94.0 FL) 84.2 MCH (27.0 - 31.0 PG) 28.7 MCHC (33.0 - 37.0 G/DL) 34.1 RDW (11.5 - 14.5 %) 18.6 H Plt Count (130 - 400 /CUMM) 134 MPV (7.4 - 10.4 FL) 8.1 Gran % (42.2 - 75.2 %) 83.3 H Lymphocytes % (20.5 - 51.1 %) 10.5 L Monocytes % (1.7 - 9.3 %) 5.8 Eosinophils % (0 - 5 %) 0 Basophils % (0.0 - 2.0 %) 0.4 Absolute Granulocytes (1.4 - 6.5 /CUMM) 10.4 H Absolute Lymphocytes (1.2 - 3.4 /CUMM) 1.3 Absolute Monocytes (0.10 - 0.60 /CUMM) 0.7 H Absolute Eosinophils (0.0 - 0.7 /CUMM) 0 Absolute Basophils (0.0 - 0.2 /CUMM) 0.1 04/03 Chemistry TSH Cancelled Coagulation PT (9.4 - 12.5 SEC) 13.7 H INR (0.90 - 1.17) 1.25 H APTT (25 - 37 SEC) 30 Urines Urine Color (YEL,AMB,STR) YEL Urine Clarity (CLEAR) CLEAR Urine pH (5.0 - 8.0) 6.0 Ur Specific [place] (1.001 - 1.035) 1.015 Urine Protein (NEG,<30 MG/DL) 30 H Urine Ketones (NEG) NEG Urine Nitrite (NEG) NEG Urine Bilirubin (NEG) NEG Urine Urobilinogen (0.1 - 1.0 EU/dl) 0.2 Ur Leukocyte Esterase (NEG) NEG Ur Microscopic SEDIMENT EXAMINED Urine RBC (0 - 5 /HPF) 1-3 Ur Epithelial Cells (NONE,FEW) RARE Urine Hemoglobin (NEG) SMALL H Urine Glucose (N MG/DL) >=1000 H 04/02 Chemistry Sodium (137 - 145 mmol/L) 133 L Potassium (3.5 - 5.1 mmol/L) 5.3 H Chloride (98 - 107 mmol/L) 96 L Carbon Dioxide (22 - 30 mmol/L) 26 Anion Gap (5 - 16) 12 BUN (9 - 20 mg/dL) 60 H Creatinine (0.7 - 1.2 mg/dL) 2.4 H Estimated GFR (>60 ml/min) 26 L BUN/Creatinine Ratio (7 - 25 %) 25.0 Glucose (65 - 99 mg/dL) 469 H Calcium (8.4 - 10.2 mg/dL) 10.6 H Magnesium (1.6 - 2.3 mg/dL) 2.1 Total Bilirubin (0.2 - 1.3 mg/dL) 1.1 AST (17 - 59 U/L) 31 ALT (21 - 72 U/L) 48 Alkaline Phosphatase (< 127 U/L) 99 Troponin I (<0.11 ng/ml) 0.14 *H Total Protein (6.3 - 8.2 g/dL) 7.1 Albumin (3.5 - 5.0 g/dL) 4.5 Globulin (1.9 - 4.2 gm/dL) 2.6 Albumin/Globulin Ratio (1.1 - 2.2 %) 1.7 TSH (0.270 - 4.200 uIU/mL) Cancelled 0.634 Hematology CBC w Diff NO MAN DIFF REQ WBC (4.8 - 10.8 /CUMM) 12.4 H RBC (4.70 - 6.10 /CUMM) 5.37 Hgb (14.0 - 18.0 G/DL) 15.3 Hct (42 - 52 %) 44.8 MCV (80.0 - 94.0 FL) 83.4 MCH (27.0 - 31.0 PG) 28.4 MCHC (33.0 - 37.0 G/DL) 34.1 RDW (11.5 - 14.5 %) 19.0 H Plt Count (130 - 400 /CUMM) 144 MPV (7.4 - 10.4 FL) 7.9 Gran % (42.2 - 75.2 %) 85.3 H Lymphocytes % (20.5 - 51.1 %) 8.5 L Monocytes % (1.7 - 9.3 %) 6.0 Eosinophils % (0 - 5 %) 0 Basophils % (0.0 - 2.0 %) 0.2 Absolute Granulocytes (1.4 - 6.5 /CUMM) 10.6 H Absolute Lymphocytes (1.2 - 3.4 /CUMM) 1.1 L Absolute Monocytes (0.10 - 0.60 /CUMM) 0.7 H Absolute Eosinophils (0.0 - 0.7 /CUMM) 0 Absolute Basophils (0.0 - 0.2 /CUMM) 0 Assessment/Plan Assessment/Plan This patient has uncontrolled diabetes mellitus type 2 which has been aggravated by the steroids that he was prescribed for low back pain. He is currently on Solu-Medrol 16 mg daily. The effects of a single dose of steroid in the morning is to have the sugar peak late in the day and be back to a low-level by the next morning. The patient's blood sugar this morning is 281. Last night at midnight it was 360. Suggest reduce his Levemir to 28 units twice a day. Suggest that we increase his NovoLog sliding scale. NovoLog sliding scale before meals should be 80-150 give 6 units NovoLog, 151-200 give 8 units NovoLog , 201-250 give 10 units NovoLog, 251-300 give 11 units NovoLog, 301-350 give 12 units NovoLog, 351-400 give 13 units NovoLog. A separate bedtime sliding scale NovoLog can be written. Bedtime sliding scale NovoLog should be less than 250 give no insulin, 251-300 give 2 units NovoLog, 301-350 give 3 units NovoLog, 351-400 give 4 units NovoLog. The patient states his back pain is better. We could probably begin to taper his methylprednisolone. I would reduce the dose to 12 units tomorrow. Consult Acknowledgment - Thank you for your consult request.
[2018-04-03 14:23] VITALS: BP 152/66
[2018-04-03 20:44] VITALS: BP 148/80
[2018-04-03 21:47] VITALS: BP 136/60
[2018-04-03] MEDS ORDERED: SPIRONOLACTONE25 M1 PO (22:26)
[2018-04-04 06:50] VITALS: BP 142/60
--- NOTE | 2018-04-04 07:57 | PN- Diabetes ---
Assessment/Plan Diabetes Assessment: The patient feels okay. He is eating well. His methylprednisolone is being tapered. The patient's fingerstick blood sugar this morning is 221. Yesterday his blood sugars remained high. He had received 16 mg of methylprednisolone yesterday. Plan: Suggest continue the same insulin for now. The patient's methylprednisolone is being tapered. If the patient goes home today he can resume his previous insulin doses that he was taking prior to admission. Subjective Subjective: Feels okay Review of Systems Constitutional: Denies: chills, fever. Cardiovascular: Denies: chest pain. Respiratory: Denies: cough, short of breath. Gastrointestinal: Denies: abdominal pain. Skin: Reports: rash (lower legs). Objective Last 24 Hrs of Vital Signs/I&O Vital Signs Date Time Temp Pulse Resp B/P B/P Pulse O2 O2 Flow FiO2 Mean Ox Delivery Rate 04/04 0650 97.9 72 18 142/60 97 04/03 2147 97.6 69 12 136/60 97 Room Air 04/03 2044 50 148/80 04/03 1423 97.6 55 20 152/66 98 Room Air 04/03 0906 44 04/03 0800 Room Air Intake & Output 04/04 0804/04 0000 04/03 1600 Intake Total 660 994 Output Total 950 1400 1425 Balance -950 -740 -431 Intake, IV 10 Intake, Oral 660 984 Output, Urine 950 1400 1425 Patient 187 lb Weight Weight Bed scale Measurement Method Physical Exam General Appearance: alert, awake, comfortable Respiratory: normal breath sounds Cardiovascular: regular rate/rhythm Extremities: stasis dermatitis lower legs Current Medications: Current Medications Sig/Leonila Start time Last Medication Dose Route Stop Time Status Admin Acetaminophen 650 MG Q6P PRN 04/02 2300 AC PO Allopurinol 100 MG DAILY 04/03 09 AC 04/03 PO 0906 Apixaban 2.5 MG BID 04/02 2359 AC 04/03 PO 204 Aspirin 81 MG DAILY 04/03 09 AC 04/03 PO 0905 Atorvastatin Calcium 20 MG 1700 04/03 1700 AC 04/03 PO 1625 Cyclobenzaprine HCl 5 MG DAILY NEEDED PRN 04/02 2315 AC PO Docusate Sodium 100 MG BID PRN 04/02 2300 AC PO Finasteride 5 MG QPM 04/03 2100 AC 04/03 PO 204 Gabapentin 100 MG TID 04/03 900 AC 04/03 PO 2045 Insulin Aspart 0 TIDAC/HS 04/03 1200 AC 04/03 SC 2054 Insulin Aspart 0 TIDAC 04/03 800 DC 04/03 SC 904 Insulin Detemir 28 UNITS BID 04/03 2100 AC 04/03 SC 2054 Insulin Detemir 40 UNITS BID 04/02 2258 DC 04/03 SC 904 Methylprednisolone 2 MG DAILY 04/06 900 AC PO 04/08 859 Methylprednisolone 4 MG DAILY 04/04 900 DC PO 04/08 859 Methylprednisolone 4 MG DAILY 04/04 900 AC PO 04/06 859 Methylprednisolone 16 MG DAILY 04/03 900 DC 04/03 PO 04/07 Metoprolol Succinate 12.5 MG DAILY 04/03 900 AC PO Senna 187 MG DAILY 04/03 900 AC 04/03 PO 905 Spironolactone 25 MG DAILY 04/04 900 AC PO Torsemide 20 MG BID 04/03 900 AC 04/03 PO 2045 Findings Pertinent Lab/Desean Results: Laboratory Tests 04/03 0600 0210 Chemistry Sodium (137 - 145 mmol/L) 137 Potassium (3.5 - 5.1 mmol/L) 4.4 Chloride (98 - 107 mmol/L) 103 Carbon Dioxide (22 - 30 mmol/L) 23 Anion Gap (5 - 16) 11 BUN (9 - 20 mg/dL) 58 H Creatinine (0.7 - 1.2 mg/dL) 1.8 H Estimated GFR (>60 ml/min) 37 L BUN/Creatinine Ratio (7 - 25 %) 32.2 H Troponin I (<0.11 ng/ml) Cancelled 0.15 *H 0.15 *H Hematology CBC w Diff NO MAN DIFF REQ WBC (4.8 - 10.8 /CUMM) 12.5 H RBC (4.70 - 6.10 /CUMM) 5.15 Hgb (14.0 - 18.0 G/DL) 14.8 Hct (42 - 52 %) 43.4 MCV (80.0 - 94.0 FL) 84.2 MCH (27.0 - 31.0 PG) 28.7 MCHC (33.0 - 37.0 G/DL) 34.1 RDW (11.5 - 14.5 %) 18.6 H Plt Count (130 - 400 /CUMM) 134 MPV (7.4 - 10.4 FL) 8.1 Gran % (42.2 - 75.2 %) 83.3 H Lymphocytes % (20.5 - 51.1 %) 10.5 L Monocytes % (1.7 - 9.3 %) 5.8 Eosinophils % (0 - 5 %) 0 Basophils % (0.0 - 2.0 %) 0.4 Absolute Granulocytes (1.4 - 6.5 /CUMM) 10.4 H Absolute Lymphocytes (1.2 - 3.4 /CUMM) 1.3 Absolute Monocytes (0.10 - 0.60 /CUMM) 0.7 H Absolute Eosinophils (0.0 - 0.7 /CUMM) 0 Absolute Basophils (0.0 - 0.2 /CUMM) 0.1 04/03 Chemistry TSH Cancelled Coagulation PT (9.4 - 12.5 SEC) 13.7 H INR (0.90 - 1.17) 1.25 H APTT (25 - 37 SEC) 30 Urines Urine Color (YEL,AMB,STR) YEL Urine Clarity (CLEAR) CLEAR Urine pH (5.0 - 8.0) 6.0 Ur Specific [place] (1.001 - 1.035) 1.015 Urine Protein (NEG,<30 MG/DL) 30 H Urine Ketones (NEG) NEG Urine Nitrite (NEG) NEG Urine Bilirubin (NEG) NEG Urine Urobilinogen (0.1 - 1.0 EU/dl) 0.2 Ur Leukocyte Esterase (NEG) NEG Ur Microscopic SEDIMENT EXAMINED Urine RBC (0 - 5 /HPF) 1-3 Ur Epithelial Cells (NONE,FEW) RARE Urine Hemoglobin (NEG) SMALL H Urine Glucose (N MG/DL) >=1000 H 04/02 Chemistry Sodium (137 - 145 mmol/L) 133 L Potassium (3.5 - 5.1 mmol/L) 5.3 H Chloride (98 - 107 mmol/L) 96 L Carbon Dioxide (22 - 30 mmol/L) 26 Anion Gap (5 - 16) 12 BUN (9 - 20 mg/dL) 60 H Creatinine (0.7 - 1.2 mg/dL) 2.4 H Estimated GFR (>60 ml/min) 26 L BUN/Creatinine Ratio (7 - 25 %) 25.0 Glucose (65 - 99 mg/dL) 469 H Calcium (8.4 - 10.2 mg/dL) 10.6 H Magnesium (1.6 - 2.3 mg/dL) 2.1 Total Bilirubin (0.2 - 1.3 mg/dL) 1.1 AST (17 - 59 U/L) 31 ALT (21 - 72 U/L) 48 Alkaline Phosphatase (< 127 U/L) 99 Troponin I (<0.11 ng/ml) 0.14 *H Total Protein (6.3 - 8.2 g/dL) 7.1 Albumin (3.5 - 5.0 g/dL) 4.5 Globulin (1.9 - 4.2 gm/dL) 2.6 Albumin/Globulin Ratio (1.1 - 2.2 %) 1.7 TSH (0.270 - 4.200 uIU/mL) Cancelled 0.634 Hematology CBC w Diff NO MAN DIFF REQ WBC (4.8 - 10.8 /CUMM) 12.4 H RBC (4.70 - 6.10 /CUMM) 5.37 Hgb (14.0 - 18.0 G/DL) 15.3 Hct (42 - 52 %) 44.8 MCV (80.0 - 94.0 FL) 83.4 MCH (27.0 - 31.0 PG) 28.4 MCHC (33.0 - 37.0 G/DL) 34.1 RDW (11.5 - 14.5 %) 19.0 H Plt Count (130 - 400 /CUMM) 144 MPV (7.4 - 10.4 FL) 7.9 Gran % (42.2 - 75.2 %) 85.3 H Lymphocytes % (20.5 - 51.1 %) 8.5 L Monocytes % (1.7 - 9.3 %) 6.0 Eosinophils % (0 - 5 %) 0 Basophils % (0.0 - 2.0 %) 0.2 Absolute Granulocytes (1.4 - 6.5 /CUMM) 10.6 H Absolute Lymphocytes (1.2 - 3.4 /CUMM) 1.1 L Absolute Monocytes (0.10 - 0.60 /CUMM) 0.7 H Absolute Eosinophils (0.0 - 0.7 /CUMM) 0 Absolute Basophils (0.0 - 0.2 /CUMM) 0
[2018-04-04] MEDS ORDERED: CYCLOBENZAPRINE5 M2 PO (08:10)
--- NOTE | 2018-04-04 08:13 | Patient Discharge Instructions ---
Discharge Instructions General Discharge Information You were seen/treated for: Near syncopal episode. Demand ischemia. Acute on chronic kidney injury. Watch for these problems: Chest pain, palpitation, lightheadedness, loss of consciousness, nausea and abdominal pain, shortness of breath, blood in stool, blood in urine. Special Instructions: - Please follow up with your primary care physician within 1-2 weeks of discharge. Inform your primary care physician of this admission to [facility]. - Continue your current medications per discharge instructions. -Follow-up with hand [facility] in 1 week. Diet Continue normal diet: Yes Recommended Diet: Diabetic Activity Full Activity/No Limits: Yes Acute Coronary Syndrome Inclusion Criteria At DC or during hospital stay patient has or had the following: ACS DIAGNOSIS No Discharge Core Measures Meds if any: Prescribed or Continued at Discharge Meds if any: NOT Prescribed or Continued at Discharge Congestive Heart Failure Inclusion Criteria At DC or during hospital stay patient has or had the following: CHF DIAGNOSIS No Discharge Core Measures Meds if any: Prescribed or Continued at Discharge Meds if any: NOT Prescribed or Continued at Discharge Cerebrovascular accident Inclusion Criteria At DC or during hospital stay patient has or had the following: CVA/TIA Diagnosis No Discharge Core Measures Meds if any: Prescribed or Continued at Discharge Meds if any: NOT Prescribed or Continued at Discharge Venous thromboembolism Inclusion Criteria VTE Diagnosis No VTE Type NONE VTE Confirmed by (Test) NONE Discharge Core Measures - Per Current guidelines, there needs to be overlap - treatment for the first 5 days of Warfarin therapy. - If discharged on Warfarin prior to 5 days of - overlap therapy, the patient will need to be - assessed for post discharge needs including - *Post discharge parental anticoagulation - *Warfarin and/or parental anticoagulation education - *Follow up date to check INR post discharge At least 5 days overlap therapy as Inpatient No Meds if any: Prescribed or Continued at Discharge Note: Overlap Therapy is Warfarin and Anticoagulant Meds if any: NOT Prescribed or Continued at Discharge
[2018-04-04] MEDS ORDERED: MEDROL2 M1 PO (09:04)
--- NOTE | 2018-04-04 10:29 | PN- Housestaff ---
Cristian Yan 04/04/18 1029: Subjective Follow-up For: Uncontrolled diabetes, hyperglycemia Near syncopal episode Elevated troponin Acute on chronic kidney injury Complaints: no complaints Tele-Events Since Last Visit: Patient went into a. flutter ~37-41bpm @0930, patient experienced 7 beats of ventricular tachycardia Subjective: Patient seen and examined at the bedside. No acute events overnight. Patient is maintaining saturation on room air. However, this morning before rounds patient experienced a run of vtach. This will require further evaluation before discharge. Review of Systems Constitutional: Denies: chills, fever. EENTM: Reports: no symptoms. Cardiovascular: Denies: chest pain, palpitations, syncope. Respiratory: Denies: cough, short of breath, wheezing. Gastrointestinal: Reports: no symptoms. Genitourinary: Reports: no symptoms. Musculoskeletal: Reports: no symptoms. Skin: Reports: no symptoms. Neurological/Psychological: Reports: no symptoms. Objective Last 24 Hrs of Vital Signs/I&O Vital Signs Date Time Temp Pulse Resp B/P B/P Pulse O2 O2 Flow FiO2 Mean Ox Delivery Rate 04/04 0930 72 142/60 04/04 0650 97.9 72 18 142/60 97 04/03 2147 97.6 69 12 136/60 97 Room Air 04/03 2044 50 148/80 04/03 1423 97.6 55 20 152/66 98 Room Air Intake & Output 04/04 1600 04/04 0800 04/04 0000 Intake Total 660 Output Total 950 1400 Balance -950 -740 Intake, Oral 660 Output, Urine 950 1400 Physical Exam General Appearance: Alert, Oriented X3, Cooperative, No Acute Distress Skin: No Rashes, No Breakdown, No Significant Lesion Skin Temp/Moisture Exam: Warm/Dry HEENT: Atraumatic, PERRLA, EOMI, Mucous Membr. moist/pink Neck: Supple, No JVD, No thryomegaly Cardiovascular: Normal S1, Normal S2, No Murmurs, Gallops, Rubs, irregularly irregular rate Lungs: Clear to Auscultation, Normal Air Movement Abdomen: Normal Bowel Sounds, Soft, No Tenderness Neurological: Normal Gait, Normal Speech, Strength at 5/5 X4 Ext, Normal Tone, Sensation Intact, Cranial Nerves 3-12 NL Extremities: No Clubbing, No Cyanosis, No Edema Vascular: Normal Pulses, Pulses Symmetrical Current Medications: Current Medications Sig/Leonila Start time Last Medication Dose Route Stop Time Status Admin Acetaminophen 650 MG Q6P PRN 04/02 2300 AC PO Allopurinol 100 MG DAILY 04/03 0900 AC 04/04 PO 0929 Apixaban 2.5 MG BID 04/02 2359 AC 04/04 PO 0929 Aspirin 81 MG DAILY 04/03 0900 AC 04/04 PO 0929 Atorvastatin Calcium 20 MG 1700 04/03 1700 AC 04/03 PO 1625 Cyclobenzaprine HCl 5 MG DAILY NEEDED PRN 04/02 2315 AC PO Docusate Sodium 100 MG BID PRN 04/02 2300 AC PO Finasteride 5 MG QPM 04/03 2100 AC 04/03 PO 2046 Gabapentin 100 MG TID 04/03 09 AC 04/04 PO 09 Insulin Aspart 0 .STK-MED ONE 04/04 09 DC SC Insulin Aspart 0 TIDAC/HS 04/03 1200 AC 04/04 SC 1217 Insulin Detemir 28 UNITS BID 04/03 2100 AC 04/04 SC 0929 Methylprednisolone 2 MG DAILY 04/06 0900 AC PO 04/08 0859 Methylprednisolone 2 MG DAILY 04/04 1045 AC PO 04/05 0901 Methylprednisolone 4 MG DAILY 04/04 09 DC PO 04/08 0859 Methylprednisolone 4 MG DAILY 04/04 09 AC 04/04 PO 04/06 0859 0930 Methylprednisolone 16 MG DAILY 04/03 0900 DC 04/03 PO 04/07 0859 0907 Metoprolol Succinate 12.5 MG DAILY 04/03 09 AC 04/04 PO 0930 Senna 187 MG DAILY 04/03 09 AC 04/04 PO 0929 Spironolactone 25 MG DAILY 04/04 09 AC 04/04 PO 0929 Torsemide 20 MG BID 04/03 09 AC 04/04 PO 0930 Last 24 Hrs of Lab/Desean Results Last 24 Hrs of Labs/Mics: Laboratory Tests 04/04/18 1040: Anion Gap 8, Estimated GFR 53 L, BUN/Creatinine Ratio 38.5 H, Calcium 8.3 L, Magnesium 1.7, Troponin I 0.12 *H Orders EKG Findings: PACs and PVCs, Afib Assessment/Plan Assessment: 77 YO M with PMH of [place] on Eliquis, hypertension, hyperlipidemia, type 2 diabetes, coronary artery disease, chronic kidney disease stage III, anemia, aortic stenosis (status post TAVR in November), moderate to severe concentric left ventricular hypertrophy (last echo in October,) EF 55% with stage III diastolic heart failure, presents to [facility] with the chief complaint of hyperglycemia. While in the hospital patient has near syncopal episode although he did not pass out. Problem list/plan: Near syncopal episode: -Could be neurogenic, symptomatic bradycardia or arrhythmia. We will keep the patient on playground monitor and watch for any arrhythmias or blocks. -Patient had one episode of vtach this morning. -Cardiology consultation placed - per cardiology, ordered ABG, D-dimer, Echo, BLE doppler -Checked electrolytes - K was 3.2, repleted with 40meq orally. Mg and Ca were essentially normal -Repeat electrolyte reading at 6pm -We will trend his troponin although it is a flat pattern without ischemic changes on EKG. Trops continue to trend down (0.12 today) -Patient has bradycardia but he is asymptomatic. Uncontrolled diabetes: -Type 2 diabetes on insulin. -On admission patient has blood sugar 468. Possibly due to steroids he is taking for spinal stenosis that is blood sugar is not controlled with his insulin regimen. -This morning his blood sugar was 221 -Insulin Levemir 28 units twice daily subcutaneous -Continue Accu-Cheks -Insulin NovoLog according to sliding scale, separate scale for mealtime and bedtime. -Follow-up endocrinology recommendations, for patient to return to home dosages upon discharge Acute on chronic kidney:(improved) -Patient has stage III kidney injury, baseline creatinine is 1.9 and GFR in the 30s. -Patient presented with creatinine 2.4, GFR was 26 and today it's 1.8, GFR is 37 -Possibly prerenal due to dehydration in the setting of diuretics. -Improved with IV hydration he received in ED. History of paroxysmal A. fib: -Increase Eliquis to 5 mg twice daily per cardiology -Continue metoprolol 12.5 mg daily for rate control. History of hyperlipidemia: -Continue Lipitor 20 mg daily History of diastolic heart failure and TAVR: -On last echocardiogram patient has ejection fraction 55% and stage III diastolic heart failure. -Continue torsemide -Continue aspirin History of spinal stenosis: -Patient was recently started on steroids and Flexeril. -Continue tapering dose of Medrol -Continue Flexeril DVT prophylaxis: Patient on Eliquis; ALPS Consistent Carbohydrate 1 Patient is full code Problem List: 1. Near syncope 2. Type 2 diabetes mellitus with hyperglycemia 3. Paroxysmal atrial fibrillation Pain Ratin Pain Location: none Pain Goal: Remain pain free Pain Plan: pain pathway Tomorrow's Labs & Rationales: bep, if necessary Sebas GONSALES,Jolieaugustina 04/04/18 1416: Attending MD Review Statement Attending Statement Attending MD Statement: examined this patient, discuss w/resident/PA/TECHNICIAN INVENTORY SPECIALIST, agreed w/resident/PA/TECHNICIAN INVENTORY SPECIALIST, discussed with family, reviewed EMR data (avail), discussed with nursing, discussed with case mgmt, amended to note Attending Assessment/Plan: Patient seen and examined. Resting comfortably and not in any acute distress. No issues overnight. No new complaints this morning. Blood glucose levels have improved this morning still elevated. This morning he had a short run of nonsustained ventricular tachycardia lasting about 8 beats. She was asymptomatic and hemodynamically stable. Denies chest pain or shortness. Denies palpitations. EKG shows A. fib with no ischemic changes. Problems: 1. Transient dizziness; resolved 2. Uncontrolled insulin-dependent diabetes; likely secondary to steroid therapy 3. Acute on chronic kidney disease; likely secondary to glucosuria from elevated glucose levels. 4. Abnormal troponin; chronically elevated 5. Nonsustained ventricular tachycardia 6. Atrial fibrillation on and correlation with Eliquis 7. Aortic stenosis status post TAVR earlier this year. Plan: -Glucose levels are improving. Anticipate further improvement as we wean down the steroid therapy. He will complete chemotherapy in the next 2 days. -Patient is to continue his home insulin regimen upon discharge. -Dizziness was likely related to his elevated glucose levels. Now resolved. -Patient nonsustained ventricular tachycardia earlier today. Magnesium is within normal limits however he is mildly hypokalemic. Potassium supplements has been provided. -Patient has elevated troponin levels. Laboratory data shows that troponin levels have been elevated with impaction April 2017. His levels have been flat and compared to levels back in October. Unclear if this is related to his underlying renal disease or he has underlying demand ischemia. -Cardiology consultation appreciated. Workup for thromboembolic disease is recommended. Patient is a dose of Eliquis is suboptimal despite his impaired renal function. Dose has been increased to 5 mg twice daily. Follow-up d-dimer level. If lower extremity Dopplers are negative no further benefit in pursuing thromboembolic workup particularly when his Eliquis dose has been increased therapeutic level. -Given his elevated troponin levels which were previously attributed to demand ischemia in the past he will benefit from ischemic workup if not done recently. This will help clarify if symptoms are indeed secondary to demand mismatch. Follow-up echocardiogram to rule out any new wall motion abnormality.
--- NOTE | 2018-04-04 13:03 | Cons- Cardiology ---
General Information and HPI Consulting Request Date of Consult: 04/04/18 Requested By: Bj Mullen MD History of Present Illness: Britton is a 77 year old male with history of hypertension, dyslipidemia, diabetes, atrial fibrillation and severe aortic stenosis. This past November he underwent a TAVR and overall has felt much improved. He recently was placed on steroids for arthritic discomfort and, in that setting, had a highly elevated blood glucose. He is mild to moderately active and is without any chest pain, pressure, tightness, shortness of breath, lightheadedness or palpitations. While in the hospital he was noted to have a short run of NSVT lasting 8 beats along with a borderline elevated troponin level. Upon admission, he also was found to have an elevated serum creatinine although this is improving. His last echocardiogram showed a normal EF of 67% with moderate LVH and diastolic dysfunction. He has moderate pulmonary hypertension, moderate biatrial enlargement, a Corevalve bioprosthetic AVR and mild paravavlular regurgitation. Allergies/Medications Allergies: Coded Allergies: hydrocodone (NAUSEA 04/11/17) Home Med List: Allopurinol 100 MG TABLET 1 TAB PO DAILY GOUT (Reported) Apixaban (Eliquis) 2.5 MG TABLET 1 TAB PO BID Atrial Fibrilliation (Reported) Aspirin (Children's Aspirin) 81 MG TAB.CHEW 1 TAB PO DAILY HEART HEALTH ( Reported) Atorvastatin Calcium 40 MG TABLET 0.5 TAB PO DAILY CHOLESTEROL (Reported) Cinnamon Bark (Cinnamon) 500 MG CAPSULE 1 CAP PO DAILY SUPPLEMENT (Reported) Cyanocobalamin (Vitamin B-12) 1,000 MCG TABLET 1 TAB PO DAILY VITAMIN SUPPORT (Reported) Cyclobenzaprine HCl 5 MG TABLET 1 TAB PO DAILY NEEDED PRN BACK PAIN ( Reported) Docusate Sodium (Colace) 100 MG CAPSULE 1 CAP PO BID PRN CONSTIPATION . Finasteride 5 MG TABLET 1 TAB PO QPM PROSTATE (Reported) Gabapentin 100 MG CAPSULE 1 CAP PO TID NERVE PAIN (Reported) Insulin Lispro (Humalog) 100 UNIT/ML VIAL DM (Reported) Insulin-Lantus (Lantus) 100 UNIT/ML VIAL 28 UNITS SC QAM DM (Reported) Insulin-Lantus (Lantus) 100 UNIT/ML VIAL 33 UNITS SC QPM DM (Reported) Lactobacillus Acidophilus (Probiotic) 10 BILLION CELL CAPSULE 1 CAP PO DAILY GI (Reported) Magnesium Hydroxide (Milk Of Magnesia) 400 MG/5 ML ORAL.SUSP 5 ML PO DAILY NEEDED PRN CONSTIPATION . Methylprednisolone (Medrol) 2 MG TABLET 2 MG PO DAILY BACK PAIN Taper Methylprednisolone. (Medrol) 4 MG TAB.DS.PK 1 DP PO AD Spinal stenosis ( Reported) 6 on day 1 then reduce by one tablet daily until gone Metoprolol Tartrate 25 MG TABLET 0.5 TAB PO DAILY HEART/BP (Reported) Spironolactone 25 MG TABLET 1 TAB PO DAILY Heart (Reported) Torsemide 20 MG TABLET 1 TAB PO BID Fluid Retention (Reported) Review of Systems Review of Systems: A review of systems is remarkable for back pain. Past History Travel History Traveled to [place] past 21 day No Medical History Blood Transfusion Hx: Yes Neurological: NONE EENT: NONE Cardiovascular: AFIB, CHF, hypertension Respiratory: NONE Gastrointestinal: constipation Hepatic: NONE Renal: "LOW FUNCTIONING KIDNEYS" Musculoskeletal: NONE Psychiatric: NONE Endocrine: diabetes Blood Disorders: NONE Cancer(s): NONE INTERACTIVE MEDIA MARKETING SPECIALIST/Reproductive: NONE Surgical History Surgical History: BACK SURGERIES RIGHT TKR Family History Relations & Conditions If Any: MOTHER (CAD, multiple familes on mother sides had heart attack before 60). Psychosocial History Who Do You Live With? girlfriend Services at Home: None Primary Language: Mohawk Smoking Status: Never Smoked ETOH Use: denies use Functional Ability ADLs Independent: dressing, eating, toileting, bathing. Ambulation: independent IADLs Independent: shopping, housework, finances, food prep, telephone, transportation , medication admin. Exam & Diagnostic Data Vital Signs and I&O Vital Signs Date Time Temp Pulse Resp B/P B/P Pulse O2 O2 Flow FiO2 Mean Ox Delivery Rate 04/04 0930 72 142/60 04/04 0650 97.9 72 18 142/60 97 04/03 2147 97.6 69 12 136/60 97 Room Air 04/03 2044 50 148/80 04/03 1423 97.6 55 20 152/66 98 Room Air Intake & Output 04/04 1600 04/04 0804/04 0000 04/03 1600 04/03 0000 Intake Total 660 994 200 Output Total 950 1400 1425 475 700 Balance -950 -740 -431 -275 -700 Intake, IV 10 Intake, Oral 660 984 200 Output, Urine 950 1400 1425 475 700 Patient 187 lb 187 lb Weight Weight Bed scale Reported by Patient Measurement Method Physical Exam: General: WD/overweight male in NAD; alert and oriented x 3 HEENT: NC/AT, PERRL, EOMI Neck: no JVD, no carotid bruit Heart: irregularly irregular with 3/6 systolic murmur at the LLSB and RUSB Lungs: clear bilaterally Abdomen: soft, NT, +ve bowel sounds Extremities: no edema Assessment/Plan Assessment/Plan * This patient has chronic atrial fibrillation with controlled heart rate. He needs to continue on chronic anticoagulation for stroke prophylaxis. His dose of Eliquis is suboptimal and should be increased to 5mg BID. Continue Metoprolol for rate control. * There is no evidence of decompensated CHF today and he is doing much better after his TAVR. * This patient likely became dehydrated in the setting of his high blood glucose causing renal insufficiency but this is improving. * The patient now has a borderline elevated troponin along with a short run of NSVT. This may be related to some demand ischemia but a PE is also a possibility. He has not been on an ideal dose of Eliquis. I would check a D- dimer and ABG and lower extremity dopplers. We will hold off on a CT angiogram due to his recent renal insufficiency. If any of the above are abnormal then a V /Q scan is reasonable. The patient may have a type 2 DE. He is already on anticoagulation and a beta ravi. Continue these medication along with his statin and aspirin. Observe on telemetry for another day. Obtain an echocardiogram. In the setting of a normal EF, a life threatening ventricular dysrhythmia is less likely. Please replete his potassium. Consult Acknowledgment - Thank you for your consult request.
[2018-04-04 14:34] VITALS: BP 142/76
--- NOTE | 2018-04-04 18:55 | ULTRASOUND REPORT ---
EXAMINATION: US TRIPLEX OF LOWER EXTREMITIES, BILATERAL CLINICAL INFORMATION: Discoloration. Skin changes. COMPARISON: None TECHNIQUE: Color-flow triplex imaging with spectral analysis and compression Doppler were performed on the lower extremities. FINDINGS: Respiratory variation, normal compression and augmented flow are noted throughout the lower extremities. The visualized common femoral vein, superficial femoral vein, profunda femoral vein, popliteal vein and midcalf peroneal and posterior tibial venous segments show no evidence of deep venous thrombosis. There is no Shaver's cyst. IMPRESSION: No evidence of deep venous thrombosis involving the bilateral lower extremities.
[2018-04-04 22:09] VITALS: BP 136/76
[2018-04-05] MEDS ORDERED: ELIQUIS5 M1 PO ×2 (06:10→09:34)
[2018-04-05 06:52] VITALS: BP 118/50
--- NOTE | 2018-04-05 07:22 | PN- Housestaff ---
[facility] Subjective Follow-up For: Uncontrolled diabetes, hyperglycemia(Improved) Near syncopal episode(resolved) Demand ischemia NSVT Acute on chronic kidney injury,IMPROVED Tele-Events Since Last Visit: Patient remained in A. fib with heart rate between 3870. Patient has couple of PVCs this morning. Subjective: Patient remained afebrile overnight. Seen and examined this morning. He is on room air and maintaining saturation 97%. Patient denied chest pain, palpitation , nausea, vomiting, lightheadedness, abdominal pain and dysuria. Patient had nonsustained V. tach yesterday morning. Although patient remained asymptomatic. Review of Systems Constitutional: Denies: chills, fever. EENTM: Reports: no symptoms. Cardiovascular: Denies: chest pain, palpitations, syncope. Respiratory: Denies: cough, short of breath, sputum production. Gastrointestinal: Denies: abdominal pain, bloating, diarrhea, nausea, vomiting. Genitourinary: Reports: no symptoms. Neurological/Psychological: Reports: no symptoms. Objective Last 24 Hrs of Vital Signs/I&O Vital Signs Date Time Temp Pulse Resp B/P B/P Pulse O2 O2 Flow FiO2 Mean Ox Delivery Rate 04/05 0652 98.1 56 18 118/50 97 Room Air 04/04 2209 97.6 53 18 136/76 97 Room Air 04/04 1434 97.2 77 18 142/76 96 Room Air 04/04 0930 72 142/60 Intake & Output 04/05 0800 04/05 0000 04/04 1600 Intake Total 579 920 5873 Output Total 700 1350 Balance 120 -240 -350 Intake, Oral 324 801 3243 Output, Urine 700 1350 Patient 181 lb Weight Weight Bed scale Measurement Method Physical Exam General Appearance: Alert, Oriented X3, Cooperative Skin Temp/Moisture Exam: Warm/Dry Sepsis Skin Exam (color): Normal for Ethnicity HEENT: Atraumatic, PERRLA, EOMI Neck: Supple Cardiovascular: Normal S1, Normal S2 Lungs: Clear to Auscultation Abdomen: Soft, No Tenderness Neurological: Normal Speech, Strength at 5/5 X4 Ext, Normal Tone Extremities: No Edema Assessment/Plan Assessment: 77 YO M with PMH of A. fib on Eliquis, hypertension, hyperlipidemia, type 2 diabetes, coronary artery disease, chronic kidney disease stage III, anemia, aortic stenosis (status post TAVR in November), moderate to severe concentric left ventricular hypertrophy (last echo in October,) EF 55% with stage III diastolic heart failure, presents to [facility] ED with the chief complaint of hyperglycemia. While in the hospital patient has near syncopal episode although he did not pass out. Following the patient on telemetry floor for following problems. Near syncopal episode:(Improved) -Could be neurogenic, symptomatic bradycardia or arrhythmia. We will keep the patient on shirring machine operator automatic and watch for any arrhythmias or blocks. -Patient had one episode of vtach this morning. -His Doppler study is negative for DVT. -His troponin were trended that remained flat pattern and EKGs remained negative for ischemic injury. -EF has been reduced to 40% compare to 55% last time in Sep 2017. Patient did not have signs of congestive heart failure. -Patient has bradycardia but he is asymptomatic. Nonsustained VT: -Patient had 8 beats of nonsustained VT yesterday morning. He remained asymptomatic. -His magnesium and potassium were low those were repleted. -Follow-up magnesium and potassium levels. Uncontrolled diabetes: -Type 2 diabetes on insulin. -On admission patient has blood sugar 468. Possibly due to steroids he is taking for spinal stenosis that is blood sugar is not controlled with his insulin regimen. -This morning his blood sugar was 161 -Insulin Levemir 30 units twice daily subcutaneous. Victoza 0.6 mg s/c daily was added for home. -No need for bed time scale after the discharge. -Continue Accu-Cheks -Insulin NovoLog according to sliding scale, separate scale for mealtime and bedtime. -His home doses of insulin will be resumed upon discharge as his steroid dose has been tapered. Demand ischemia: -His troponins were trended, the pattern remained flat. -Possibly due to demand ischemia in the setting of acute on chronic kidney injury. Acute on chronic kidney:(improved) -Patient has stage III kidney injury, baseline creatinine is 1.9 and GFR in the 30s. -Patient presented with creatinine 2.4, GFR was 26. -Possibly prerenal due to dehydration in the setting of diuretics. -Improved with IV hydration he received in ED. History of paroxysmal A. fib: -His Eliquis dose was increased to 5 mg twice daily. His previous dose was suboptimal. -Continue metoprolol 12.5 mg daily for rate control. History of hyperlipidemia: -Continue Lipitor 20 mg daily History of diastolic heart failure and TAVR: -On last echocardiogram patient has ejection fraction 55% and stage III diastolic heart failure. On ECHO his EF has been reduced to 40%. Patient did not have signs of congestive heart failure. -Continue torsemide. -Continue aspirin. History of spinal stenosis: -Patient was recently started on steroids and Flexeril. -Continue tapering dose of Medrol -Continue Flexeril Diet: Diabetic diet, carbohydrate 1 DVT prophylaxis; Mechanical and on Eliquis CODE STATUS; Full code Problem List: 1. Type 2 diabetes mellitus with hyperglycemia 2. Near syncope 3. Paroxysmal atrial fibrillation Pain Ratin Pain Location: none Pain Goal: Remain pain free Pain Plan: pain pathway Tomorrow's Labs & Rationales: bep/Janet Hilario MD 04/05/18 0950: Attending MD Review Statement Attending Statement Attending MD Statement: examined this patient, discuss w/resident/PA/CARDIOVASCULAR TECHNOLOGIST, agreed w/resident/PA/CARDIOVASCULAR TECHNOLOGIST, discussed with family, reviewed EMR data (avail), discussed with nursing, discussed with case mgmt, reviewed images Attending Assessment/Plan: Patient feels well. He is eager to leave.Patient feels well. He is eager to leave. His sugars are better and appreciate Dr. andres's follow-up. He had an episode of nonsustained VT and has underlying diabetes and history of CABG in November. Dr. Rodrigues has repeated the echo and we are waiting for him to read it. His Doppler was negative and his d-dimer is low so I don't think we are dealing with a PE. We have him on full dose Eliquis and if his echocardiogram is okay then likely discharged today with close outpatient follow-up.
[2018-04-05 08:29] VITALS: BP 118/50
[2018-04-05] MEDS ORDERED: MEDROL2 M1 PO ×2 (08:33→09:34)
--- NOTE | 2018-04-05 09:07 | PN- Diabetes ---
Assessment/Plan Diabetes Assessment: This patient has uncontrolled diabetes mellitus type 2 which was aggravated by the steroids that he was prescribed for low back pain. He was admitted to . He was kept in hospital due to one run of VT. In hospital, he is still on methylprednisolone 2 mg daily. Currently he is on Levemir 28 units twice a day, Novolog coverage before meals and Novolog coverage at bedtime. His FSGs were 221, 269, 254, 270 and 161. Plan: 1. increase Levemir to 30 units twice a day; 2. adjust Novolog coverage before meals; detail see the inpatient DM order; 3. continue the curent Novolog coverage at bedtime; 4. monitor FSGs. will follow. If he is medically stable for discharge, the discharge plan will be: --- Lantus 30 units twice a day; ---victoza 0.6 mg once a day; ---Humalog coverage before meals-- the same Novolog coverage before meals as inpatient; ---No Humalog at bedtime; ---monitor FSGs x 4 times a day; ---f/u in office after discharge. Inpatient Diabetes Orders Before Each Meal: Bolus Insulin: Novolog < 80 mg/dl: no coverage 80-100 mg/dl: 8 units 101-120 mg/dl: 8 units 121-150 mg/dl: 8 units 151-200 mg/dl: 10 units 201-250 mg/dl: 12 units 251-300 mg/dl: 14 units 301-350 mg/dl: 16 units 351-400 mg/dl: 18 units > 400 mg/dl: 20 units Subjective Subjective: He feels ok. Objective Last 24 Hrs of Vital Signs/I&O Vital Signs Date Time Temp Pulse Resp B/P B/P Pulse O2 O2 Flow FiO2 Mean Ox Delivery Rate 04/05 0829 56 118/50 04/05 0652 98.1 56 18 118/50 97 Room Air 04/04 2209 97.6 53 18 136/76 97 Room Air 04/04 1434 97.2 77 18 142/76 96 Room Air 04/04 0930 72 142/60 Intake & Output 04/05 1600 04/05 0800 04/05 0000 Intake Total 120 460 Output Total 700 Balance 120 -240 Intake, Oral 120 460 Output, Urine 700 Patient 181 lb Weight Weight Bed scale Measurement Method
--- NOTE | 2018-04-05 09:12 | ECHOCARDIOGRAM REPORT ---
RANJAN TAPIA Age: 77 : 1940 Gender: M Exam Date: 04/04/2018 16:33 Exam Location: [facility] Ht (in): 66 Wt (lb): 187 BSA: 2.01 BP: 142 / 76 Ordering Physician: Cristian Yan MD Referring Physician: Jayant Rodrigues MD, PhD Technologist: Geneva Richter JOE Room Number: Indications: ARRHYTHMIAS Rhythm: Atrial fibrillation Technical Quality: adequate FINDINGS Left Ventricle Normal left ventricular size with mild left ventricular hypertrophy. Mildly decreased systolic function with no obvious regional wall motion abnormalities. The ejection fraction is visually estimated at 40%. Right Ventricle The right ventricle is normal in size and function. Right Atrium The right atrium is mildly enlarged. Left Atrium The left atrium is moderately enlarged The interatrial septum is intact. Mitral Valve The mitral valve is normal in structure and function. There is mild mitral regurgitation. Aortic Valve Structurally normal bioprosthetic aortic valve consistent with TAVR with minimal stenosis. There is trace aortic regurgitation with a trace paravalvular leak. Tricuspid Valve The tricuspid valve is normal in structure and function. There is mild tricuspid regurgitation. Pulmonary artery systolic pressure is normal. Pulmonic Valve Structurally normal pulmonic valve. There is mild pulmonic regurgitation. Pericardium Normal pericardium without effusion. No pleural effusion. Great Vessels Normal aortic root dimension. The aortic arch and great vessels are well seen and are normal. CONCLUSIONS 1. Mildly decreased EF of 40%. 2. Mild right atrial and moderate left atrial enlargement. 3. Mild mitral regurgitation. 4. Mild tricuspid regurgitation. 5. Minimal aortic stenosis of a bioprosthetic aortic valve consistent with TAVR. Trace to mild aortic regurgitation with a trace paravalvular leak. 6. Mild pulmlonic regurgiatation. Jayant Rodrigues M.D. (Electronically Signed) Final Date: 05 April 2018 09:06 MEASUREMENTS (Male / Female) Normal Values 2D ECHO LV Diastolic Diameter PLAX 4.5 cm 4.2 - 5.9 / 3.9 - 5.3 cm LV Systolic Diameter PLAX 2.9 cm 2.1 - 4.0 cm LV Fractional Shortening PLAX 35.6 % 25 - 46 % LV Ejection Fraction 2D Teich 65.2 % IVS Diastolic Thickness 1.3 cm LVPW Diastolic Thickness 1.3 cm LV Relative Wall Thickness 0.6 RV Internal Dim ED PLAX 2.7 cm 1.9 - 3.8 cm Aortic Root Diameter 2.4 cm LA Systolic Diameter LX 4.9 cm 3.0 - 4.0 / 2.7 - 3.8 cm LA Volume 68.0 cm 18 - 58 / 22 - 52 cm Ascending Aorta Diameter 3.6 cm DOPPLER AV Peak Velocity 133.0 cm/s AV Peak Gradient 7.1 mmHg AV Mean Velocity 89.7 cm/s AV Mean Gradient 4.0 mmHg AV Velocity Time Integral 27.0 cm LVOT Peak Velocity 137.0 cm/s LVOT Peak Gradient 7.5 mmHg LVOT Mean Velocity 85.4 cm/s LVOT Mean Gradient 4.0 mmHg LVOT Velocity Time Integral 27.4 cm MV Peak Velocity 110.0 cm/s MV Peak Gradient 4.8 mmHg MV Mean Velocity 42.5 cm/s MV Mean Gradient 1.0 mmHg Mitral E Point Velocity 116.0 cm/s MV PHT Velocity 113.0 cm/s MV Deceleration [place] 443.0 cm/s MV Pressure Half Time 76.5 ms MV Area PHT 2.9 cm MV Deceleration Time 187.0 ms PV Peak Velocity 101.0 cm/s PV Peak Gradient 4.1 mmHg PV Mean Velocity 65.2 cm/s PV Mean Gradient 2.0 mmHg PV Velocity Time Integral 23.8 cm LV E' Lateral Velocity 7.0 cm/s Mitral E to LV E' Lateral Ratio 16.5 LV E' Septal Velocity 5.5 cm/s Mitral E to LV E' Septal Ratio 20.9
--- NOTE | 2018-04-05 09:47 | Discharge Summary ---
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 While in the hospital patient has near syncopal episode although he did not pass out. ED course: Vitals: Temperature 96.2, pulse 83, respiratory rate 20, blood pressure 163/78, oxygen saturation 97% on room air. Labs: WBC count 12.4, hemoglobin 15.3, hematocrit 44.8, platelet count 144, sodium 133, potassium 5.3, BUN 60, creatinine 2.4, glucose 469, calcium 10.6, anion gap 12. Near syncopal episode: Could be neurogenic in the setting of dehydration and arrhythmia or due to the VT less likely. Patient was placed on telemetry floor and monitor for any arrhythmias or blocks. Patient has 1 episode of V. tach but he remained asymptomatic. He never complained of lightheadedness of palpitation. Echocardiogram was done that showed ejection fraction 45% that has been reduced compared to his last echocardiogram that was showing 55% ejection fraction. His troponin and EKGs were trended. His EKGs remained negative for any ischemic cardiac injury. Patient was advised to follow cardiology in 1 week. Nonsustained VT: Patient had 8 beats of nonsustained VT although he remained asymptomatic. His magnesium and potassium overload that were repleted. Uncontrolled diabetes: Patient had type 2 diabetes mellitus. He presented with hyperglycemia with blood sugar 468. Patient recently started Medrol for spinal stenosis. Possibly steroids causing his uncontrolled diabetes. Endocrinology consult was obtained and recommendations were followed. He is longer acting insulin dose was changed. Patient was placed on different NovoLog sliding scale. Victoza 0.6 mg s/c daily was added for home. Patient will go with mealtime sliding scale and his nighttime sliding scale was discontinued. 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 During hospital stay patient's blood sugar level remained under control and his steroid dose was quickly tapered. Acute on chronic kidney: Patient has stage III kidney injury, baseline creatinine is 1.9 and GFR in the 30s. Possibly due to dehydration in the setting of diuretic use. Patient was given IV fluids in ED and his renal function had been improved. History of paroxysmal A. fib: Patient was on Eliquis 2.5 mg twice daily for anticoagulation to prevent stroke. Cardiology recommended to increase his Eliquis to 5 mg twice daily because his dose was suboptimal. Patient is getting metoprolol 12.5 mg for rate control. History of hyperlipidemia: Continued Lipitor 20 mg daily. History of diastolic heart failure and TAVR: On last echocardiogram patient has ejection fraction 55% and stage III diastolic heart failure. His repeat echocardiogram showed ejection fraction 40%. His torsemide and aspirin was continued. Patient did not have any signs of decompensated heart failure. History of spinal stenosis: Patient was recently started on steroids and Flexeril. His Solu-Medrol was quickly tapered. His Flexeril was continued. Diet: Diabetic diet, carbohydrate 1 DVT prophylaxis; Mechanical and on Eliquis CODE STATUS: Full code Allergies: Coded Allergies: hydrocodone (NAUSEA 04/11/17) Pertinent Lab Results: Echocardiogram on 04/05/18: CONCLUSIONS 1. Mildly decreased EF of 40%. 2. Mild right atrial and moderate left atrial enlargement. 3. Mild mitral regurgitation. 4. Mild tricuspid regurgitation. 5. Minimal aortic stenosis of a bioprosthetic aortic valve consistent with TAVR. Trace to mild aortic regurgitation with a trace paravalvular leak. 6. Mild pulmlonic regurgiatation. Venous Doppler study on 04/04/2018: IMPRESSION: No evidence of deep venous thrombosis involving the bilateral lower extremities. Disposition Summary Disposition Principal Diagnosis: Near syncopal episode Uncontrolled diabetes Demand ischemia Acute on chronic kidney injury. Nonsustained VT Additional Diagnosis: History of A. fib on anticoagulation History of hyperlipidemia History of diastolic heart failure. History of spinal stenosis Discharge Disposition: home or self care Discharge Instructions General Discharge Information Code Status: Full Code Patient's Diet: Diabetic diet Patient's Activity: Self-limited Follow-Up Instructions/Appts: Follow-up with your primary care physician in 1 week Follow-up with endocrinology in 1 week Follow-up with cardiology in 1 week Medications at Discharge Discharge Medications: Stop taking the following medications: Insulin-Lantus (Lantus) 100 UNIT/ML VIAL SC Every night Methylprednisolone. (Medrol) 4 MG TAB.DS.PK ORAL As Directed Qty = 30 Continue taking these medications: Finasteride (Finasteride) 5 MG TABLET 1 Tablet ORAL Every night Comments: NOT GIVEN IN HOSPITAL Aspirin (Children's Aspirin) 81 MG TAB.CHEW 1 Tablet ORAL DAILY Comments: Last Taken: 04/05/18 Time: 8:30 AM Metoprolol Tartrate (Metoprolol Tartrate) 25 MG TABLET 0.5 Tablet ORAL DAILY Qty = 90 Comments: Last Taken: 04/05/18 Time: 8:30 AM Allopurinol (Allopurinol) 100 MG TABLET 1 Tablet ORAL DAILY Qty = 90 Comments: Last Taken: 04/05/18 Time: 8:30 AM Cyanocobalamin (Vitamin B-12) 1,000 MCG TABLET 1 Tablet ORAL DAILY Comments: NOT GIVEN IN HOSPITAL Cinnamon Bark (Cinnamon) 500 MG CAPSULE 1 Capsule ORAL DAILY Comments: NOT GIVEN IN HOSPITAL Lactobacillus Acidophilus (Probiotic) 10 BILLION CELL CAPSULE 1 Capsule ORAL DAILY Comments: NOT GIVEN IN HOSPITAL Atorvastatin Calcium (Atorvastatin Calcium) 40 MG TABLET 0.5 Tablet ORAL DAILY Qty = 90 Comments: Last Taken: 04/04/18 Time: 6:00 PM Gabapentin (Gabapentin) 100 MG CAPSULE 1 Capsule ORAL THREE TIMES DAILY Qty = 270 Comments: Last Taken: 04/05/18 Time: 8:30 AM Docusate Sodium (Colace) 100 MG CAPSULE 1 Capsule ORAL TWICE DAILY as needed for CONSTIPATION Qty = 60 Instructions: . Comments: NOT GIVEN IN HOSPITAL Magnesium Hydroxide (Milk Of Magnesia) 400 MG/5 ML ORAL.SUSP 5 Milliliters ORAL DAILY NEEDED as needed for CONSTIPATION Qty = 300 Instructions: . Comments: NOT GIVEN IN HOSPITAL Torsemide (Torsemide) 20 MG TABLET 1 Tablet ORAL TWICE DAILY Qty = 30 Comments: Last Taken: 04/05/18 Time: 8:30 AM Spironolactone (Spironolactone) 25 MG TABLET 1 Tablet ORAL DAILY Qty = 30 Comments: Last Taken: 04/05/18 Time: 8:30 AM Cyclobenzaprine HCl (Cyclobenzaprine HCl) 5 MG TABLET 1 Tablet ORAL DAILY NEEDED as needed for BACK PAIN Comments: NOT GIVEN IN HOSPITAL Start taking the following new medications: Methylprednisolone (Medrol) 2 MG TABLET 2 Milligram ORAL DAILY Qty = 1 No Refills Instructions: JUST FOR ONE DAY. Comments: Last Taken: 04/05/18 Time: 8:30 AM Liraglutide (Victoza 2-Clint) 0.6 MG/0.1 ML (18 MG/3 ML) PEN.INJCTR 0.6 Milligram SC DAILY Qty = 3 No Refills Comments: NOT GIVEN IN HOSPITAL The following medications have been changed: Old: Insulin-Lantus (Lantus) 100 UNIT/ML VIAL 28 Units SC Every Morning New: Insulin-Lantus (Lantus) 100 UNIT/ML VIAL 30 Units SC TWICE DAILY Qty = 2 Comments: Last Taken: 04/05/18 Time: 8;30 AM SUBSTITUTED WITH LEVEMIR Old: Insulin Lispro (Humalog) 100 UNIT/ML VIAL Units SC BEFORE MEALS AND AT BEDTIME New: Insulin Lispro (Humalog) 100 UNIT/ML VIAL 0 SC 3 TIMES DAILY BEFORE MEALS Qty = 3 Instructions: BEFORE MEALS Blood Insulin Sugar Units <80 0 80-100 8 101-120 8 121-150 8 151-200 10 201-250 12 251-300 14 301-350 16 351-400 18 >400 20 AND CALL MD Comments: Last Taken: 04/05/18 Time: 12:30 PM SUBSTITUTED WITH NOVOLOG Old: Apixaban (Eliquis) 5 MG TABLET 1 Tablet ORAL TWICE DAILY Qty = 60 New: Apixaban (Eliquis) 5 MG TABLET 1 Tablet ORAL TWICE DAILY Qty = 60 Instructions: . Comments: Last Taken: 04/05/18 Time: 8:30 AM Copies To: [place] GONSALES,Timothy Lee; Wade GONSALES,Sara; David GONSALES,Tayler Attending MD Review Statement Documenting Attending: Bj Mullen MD Other Findings: Discharged in stable condition.
[2018-04-05] MEDS ORDERED: VICTOZA 2-0.6 MG/0.1 SC (09:56)
[2018-04-05] MEDS ORDERED: LANTUS100 UNIT/1 SC (09:56)
[2018-04-05] MEDS ORDERED: HUMALOG100 UNIT/2 SC (10:15)
--- NOTE | 2018-04-05 12:00 | PN- Cardiology ---
Subjective Subjective: * Patient has ambulated without symptoms. * Atrial fibrillation with controlled heart rate. No evidence of VT. * Potassium has been repleted. * No convincing evidence of a PE. Objective Vital Signs and I&Os Vital Signs Date Time Temp Pulse Resp B/P B/P Pulse O2 O2 Flow FiO2 Mean Ox Delivery Rate 04/05 0829 56 118/50 04/05 0652 98.1 56 18 118/50 97 Room Air 04/04 2209 97.6 53 18 136/76 97 Room Air 04/04 1434 97.2 77 18 142/76 96 Room Air Intake & Output 04/05 1600 04/05 0800 04/05 0000 04/04 1600 04/04 0800 04/04 0000 Intake Total 154 986 7886 660 Output Total 700 7966 148 3227 Balance 120 -240 -350 -950 -740 Intake, Oral 526 659 5368 660 Output, Urine 700 5136 404 8365 Patient 181 lb Weight Weight Bed scale Measurement Method Physical Exam: General: WD/overweight male in NAD; alert and oriented x 3 HEENT: NC/AT, PERRL, EOMI Neck: no JVD, no carotid bruit Heart: irregularly irregular with 3/6 systolic murmur at the LLSB and RUSB Lungs: clear bilaterally Abdomen: soft, NT, +ve bowel sounds Extremities: no edema Assessment/Plan Assessment/Plan * This patient has chronic atrial fibrillation with controlled heart rate. He needs to continue on chronic anticoagulation for stroke prophylaxis. His dose of Eliquis should be 5mg BID. Continue Metoprolol for rate control. * There is no evidence of decompensated CHF today and he is doing much better after his TAVR although there is a small paravalvular leak. We will watch this expectantly. It is not of any clinical significance at this point in time. * This patient likely became dehydrated in the setting of his high blood glucose causing renal insufficiency but this has improved. * The patient now has a borderline elevated troponin along with a short run of NSVT. This may be related to some demand ischemia or decreased clearance in the setting of renal insufficiency. I have a low suspicion of PE based on his minimally elevated D-dimer and normal LE dopplers. Continue his statin and aspirin. * The patient is stable for discharge with follow up in the office in one week. Maintain an adequate potassium level. Continue telemetry? No
== END 2018-04-05 14:00 | disposition home health service (06) | DRG 638 ==
LOC: ERH 19:54 → 1NO 21:30 → ERHI 21:30 → EDBEDREQ 22:07 → ENRESERV 22:10 → 1NO 23:07 → ENPENDDIS 04-04 10:27 → 1NO 04-05 14:00
PROVIDERS: Emergency Medicine; Internal Medicine
DX: E11.65 Type 2 diabetes mellitus with hyperglycemia (principal); N17.9 Acute kidney failure, unspecified; I47.2 Ventricular tachycardia; I24.8 Other forms of acute ischemic heart disease; I13.0 Hypertensive heart and chronic kidney disease with heart failure and stage 1 through stage 4 chronic kidney disease, or unspecified chronic kidney disease; I50.32 Chronic diastolic (congestive) heart failure; I48.2 Chronic atrial fibrillation; I35.0 Nonrheumatic aortic (valve) stenosis; I48.0 Paroxysmal atrial fibrillation; N18.3 Chronic kidney disease, stage 3 (moderate); E11.22 Type 2 diabetes mellitus with diabetic chronic kidney disease; E66.3 Overweight; Z68.30 Body mass index [BMI] 30.0-30.9, adult; I25.10 Atherosclerotic heart disease of native coronary artery without angina pectoris; E78.5 Hyperlipidemia, unspecified; I25.2 Old myocardial infarction; E87.6 Hypokalemia; Z95.3 Presence of xenogenic heart valve; Z79.01 Long term (current) use of anticoagulants; Z96.651 Presence of right artificial knee joint; Z79.4 Long term (current) use of insulin; Z88.5 Allergy status to narcotic agent
CPT/HCPCS: 1NSP; 6020; 36592; 81001; 82436; 93005; 93010; 93306; 93970; G0378; J1815; J3490